=== PATIENT | male | born 1945 | race Caucasian/White ===

== ENCOUNTER 2023-07-22 14:52 | Outpatient (REF) | payer MEDICARE, BC, SELFPAY ==
--- NOTE | ~2023-07-22 | XR_ITS ---
EXAMINATION: XR CHEST CLINICAL INFORMATION: COPD COMPARISON: None available. TECHNIQUE: 2 views of the chest were obtained. FINDINGS: The cardiac silhouette does not appear enlarged. There is volume loss to both upper lobes and superior retraction of the pulmonary rashawn. There is biapical pleural parenchymal disease with marked apical pleural thickening. There is blunting at the bilateral lateral costophrenic angles and pleural calcification. There is question of a bronchial wall thickening or small cluster nodules in the right lateral lower lobe. No pneumothorax. Bony structures are unremarkable. XR/XR chest 2V IMPRESSION: Severe by apical pleural and parenchymal disease and volume loss. Bilateral pleural calcification. Question clustered small nodules versus bronchial wall thickening at the right lateral lung base.
== END 2023-07-22 14:53 | disposition home or self-care (01) ==
LOC: HO.XRAY 14:52
PROVIDERS: PCP Family Medicine; Referring Provider Family Medicine; Visit Provider Hospitalist
DX: J44.9 Chronic obstructive pulmonary disease, unspecified (principal)
CPT/HCPCS: 71046; 94618; 99202

== ENCOUNTER 2023-07-22 14:52 | Outpatient (AMB) | payer MEDICARE, BC, SELFPAY ==
--- NOTE | 2023-07-22 15:00 | A.OFFVIS_ITS ---
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 The patient is a 77-year-old gentleman with a known history of emphysema in addition to pulmonary nodules. His cares mainly at [place]. The patient has been complaining of progressive dyspnea. He is gotten to the point that even minimal activity such as getting dressed results in significant shortness of breath. the patient denies any chest pains or palpitations. The shortness of breath does get better when he rests. Although he has been able to do much exercise because of that issue. The patient did not have a lot of medical records sent over. We only have a face sheet with his diagnosis. However, he has not aware of having any recent pulmonary function studies or chest x-rays or CT scans. He denies any recent exposure to any fumes or toxins. He does have a dog and denies any mold exposure. The patient is a former smoker. during the office visit we did go for 6 minute walk test. The patient did desaturate down to 86% with activity. He was visibly winded with dyspnea score 8/10. Denied any chest pains or palpitations. The patient is placed on a portable conserving device with 3 L pulse. We were able to ambulate he was able to maintain a pulse ox of 92%. Explained to the patient that he needs to start oxygen. I do believe that a portable oxygen concentrator with conserving valve would be most effective in order for him to have good portability outside of the home. He will need to have a chest x-ray done in addition to pulmonary function studies. He will benefit from pulmonary rehabilitation in the near future. Based on those results will consider getting some blood work including a blood gas to assess for any hypercarbia. For now we are going to maximize him on Trelegy. The patient does have some wheezing on examination I do believe a short course of prednisone would also be helpful. The patient already has a nebulizer to make sure that he has enough ampules for his nebulizer available. Once the patient has PFTs and chest x-ray he will return for follow-up in the next 6-8 weeks. [facility] Medical History (Updated 07/22/23 @ 22:33 by Enrico Bennett MD) Pulmonary nodules Chronic hypoxemic respiratory failure COPD (chronic obstructive pulmonary disease) Social History (Updated 07/22/23 @ 15:08 by Jasmin Mccoy LPN) Patient Tobacco Use Status: Former Tobacco user Tobacco use type: Cigarette Cigarette Packs Per Day: 1 Years Smoked: 60 Review of Systems Const Denies fever(s) ENT Reports nasal congestion Card Denies chest pain, Reports dyspnea and Reports dyspnea on exertion Resp Reports chest congestion, Reports cough, Reports dyspnea and Reports dyspnea on exertion GI Reports abdominal pain Musc Reports no additional complaints Skin/Breast Denies rash Dyllan/Lymph Reports no additional complaints Physical Exam Vital Signs: Last Vital Signs Pulse 67 07/22/23 15:02 BP 136/78 07/22/23 15:02 Pulse Ox 95 07/22/23 15:02 BMI result Body Mass Index 24.2 Const General: comfortable HEENT Head: Yes atraumatic Neck Neck: Yes supple Chest Chest palpation & inspection: normal inspection of the chest Resp Effort & Inspection: normal respiratory effort and prolonged expiratory phase Auscultation: wheezes and diminished lung sounds Cardio Heart sounds: S1 normal heart sound present and S2 normal heart sound present GI Palpation (GI): Soft to palpation Skin General skin exam: no rashes or lesions noted Extrem General: No cyanosis Office Procedures 6 Minute Walk Time:: 22:33 SPO2 % at rest: 93 Pulse at rest: 78 SPO2 % during excercise: 86 Pulse during excercise: 99 Distance in yards walked: 300 Slava Score: 8 Supplemental Oxygen: desaturated to86% on RA with activity. PLaced on 3L/pulse and maintained pox 92 % with activity. [address]992 - 6 Minute Walk Assessment & Plan Assessment & Plan (1) COPD (chronic obstructive pulmonary disease): Code(s): J44.9 - Chronic obstructive pulmonary disease, unspecified Qualifiers: COPD type: emphysema Emphysema type: centrilobular Qualified Code(s): J43.2 - Centrilobular emphysema (2) Chronic hypoxemic respiratory failure: Code(s): J96.11 - Chronic respiratory failure with hypoxia (3) Pulmonary nodules: Code(s): R91.8 - Other nonspecific abnormal finding of lung field Plan start Trelegy 200 daily prednisone taper start Duoneb BID start oxygen 2L/pulse with activity. (requesting POC from JEANNA) overnight oximetry on RA (JEANNA) CXR, may need a CT chest if abnormal PFT F/U 6-8 weeks Orders: Orders PFT pulmonary function test Today Overnight Pulse Oximetry Today J44.9 - Chronic obstructive pulmonary disease, unspecified XR chest 2V Today J44.9 - Chronic obstructive pulmonary disease, unspecified Medications: New prednisone 20 mg PO DAILY 5 days 5 tabs 0RF nszlelkauwq-zgqwtcubu-aqtygvuv 200-62.5-25 mcg (Trelegy Ellipta) 1 inh inhalation DAILY 30 days 60 ea 12RF ipratropium-albuterol 0.5 mg-3 mg(2.5 mg base)/3 mL 3 mL inhalation BID 30 days 180 mL 11RF J44.9 - Chronic obstructive pulmonary disease, unspecified Coding Level of Care Code New Pt Level 4 (11624) Diagnoses Centrilobular emphysema J43.2 COPD type: emphysema Emphysema type: centrilobular Chronic hypoxemic respiratory failure J96.11 Pulmonary nodules R91.8 CPT Codes Coding ([id number]) Time Spent (min) 40
[2023-07-22 15:02] VITALS: BP 136/78; PULSE 67; O2SAT 95; BMI 24.2
[2023-07-22 22:32] VITALS: PULSE 78; O2SAT 93
== END 2023-07-22 15:46 | disposition home or self-care (01) ==
PROVIDERS: PCP Family Medicine; Referring Provider Family Medicine; Visit Provider Hospitalist
DX: J43.2 Centrilobular emphysema (principal); J96.11 Chronic respiratory failure with hypoxia; R91.8 Other nonspecific abnormal finding of lung field
CPT/HCPCS: 94618; 99204

== ENCOUNTER 2023-08-22 15:15 | Outpatient (REF) | payer MEDICARE, SELFPAY ==
--- NOTE | ~2023-08-22 | CT_ITS ---
EXAMINATION: CT CHEST WITHOUT CONTRAST CLINICAL INFORMATION: Follow-up chest radiograph with the findings scarring and volume loss as well as questionable small nodules COMPARISON: Chest radiograph from 07/22/2023 TECHNIQUE: Multidetector volumetric CT imaging of the chest was done. Axial MIP volume rendering provided. Sagittal and coronal reformatted images were obtained. This CT examination was performed using dose optimization techniques as appropriate, variously including the following: *Automated exposure control *Adjustment of mA and/or kV according to patient size (this includes techniques or standardized protocols for targeted exams where dose is matched to indication/reason for exam; i.e. extremities or head) *Use of iterative reconstruction technique DLP: 166 mGy-cm FINDINGS: LUNGS: Lungs are well expanded with severe scarring in the upper lobes and retraction of lower lobes cephalad. There is cystic spaces and cystic bronchiectasis in upper lobes bilaterally. There is destruction of dilated bronchi cephalad. There are no lung nodules. Bronchovascular of lower lobes are relatively unremarkable. MEDIASTINUM: There is no mediastinal or hilar lymphadenopathy. Aorta is not dilated. There is no pericardial effusion. CORONARY ARTERY CALCIFICATION: Heavily calcified PLEURA: There is no pleural effusion but extensive pleural-based bilateral calcifications present. AXILLA: No lymphadenopathy. UPPER ABDOMEN: Unremarkable. OSSEOUS STRUCTURES: Unremarkable. 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 Pleural-based calcifications based on asbestos exposure. Fleischner guidelines were followed.
== END 2023-08-22 15:16 | disposition home or self-care (01) ==
LOC: HO.CT 15:15
PROVIDERS: Visit Provider Hospitalist
DX: R91.8 Other nonspecific abnormal finding of lung field (principal); J96.11 Chronic respiratory failure with hypoxia; R93.89 Abnormal findings on diagnostic imaging of other specified body structures
CPT/HCPCS: 71250

== ENCOUNTER 2023-09-04 10:14 | Outpatient (AMB) | payer MEDICARE, SELFPAY ==
--- NOTE | 2023-09-04 10:39 | MHC.OFFVIS ---
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 His cares mainly at [place]. The patient has been complaining of progressive dyspnea. He is gotten to the point that even minimal activity such as getting dressed results in significant shortness of breath. the patient denies any chest pains or palpitations. The shortness of breath does get better when he rests. Although he has been able to do much exercise because of that issue. The patient did not have a lot of medical records sent over. We only have a face sheet with his diagnosis. However, he has not aware of having any recent pulmonary function studies or chest x-rays or CT scans. He denies any recent exposure to any fumes or toxins. He does have a dog and denies any mold exposure. The patient is a former smoker. during the office visit we did go for 6 minute walk test. The patient did desaturate down to 86% with activity. He was visibly winded with dyspnea score 8/10. Denied any chest pains or palpitations. The patient is placed on a portable conserving device with 3 L pulse. We were able to ambulate he was able to maintain a pulse ox of 92%. Explained to the patient that he needs to start oxygen. I do believe that a portable oxygen concentrator with conserving valve would be most effective in order for him to have good portability outside of the home. He will need to have a chest x-ray done in addition to pulmonary function studies. He will benefit from pulmonary rehabilitation in the near future. Based on those results will consider getting some blood work including a blood gas to assess for any hypercarbia. For now we are going to maximize him on Trelegy. The patient does have some wheezing on examination I do believe a short course of prednisone would also be helpful. The patient already has a nebulizer to make sure that he has enough ampules for his nebulizer available. Once the patient has PFTs and chest x-ray he will return for follow-up in the next 6-8 weeks. 09/04/2023 the patient is here for a pulmonary follow-up visit. Overall he is feeling better. The oxygen therapy has been affecting beneficial. He finds it very helpful to have. In addition to that the Trelegy inhaler was too expensive and he could not afford it so therefore he did not feel it. He did get his nebulizer and does have his nebulized solution. Based on the fact that he will be using Trelegy will add budesonide to his regimen specially since he still has significant wheezing on examination. He did undergo a CT scan of the chest which was personally by me. Does have extensive fibrotic changes to the upper lung zones. Likely occupational exposures. 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 This likely resulting in some degree of restrictive lung disease in addition to the obstructive lung disease resulting in a significant hypoxia. But is reassuring no significant nodules to wear about at this time. The patient will start the DuoNeb and the budesonide twice a day if he has not better he can always start some prednisone but I am hoping that he does not require it. He should continue to use the oxygen. 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 [facility] Medical History (Updated 07/22/23 @ 22:33 by Enrico Bennett MD) Pulmonary nodules Chronic hypoxemic respiratory failure COPD (chronic obstructive pulmonary disease) Social History (Updated 07/22/23 @ 15:08 by Jasmin Mccoy LPN) Patient Tobacco Use Status: Former Tobacco user Tobacco use type: Cigarette Cigarette Packs Per Day: 1 Years Smoked: 60 Review of Systems Const Denies fever(s) ENT Reports nasal congestion Card Denies chest pain, Reports dyspnea and Reports dyspnea on exertion Resp Reports chest congestion, Reports cough, Reports dyspnea and Reports dyspnea on exertion GI Denies abdominal pain Musc Reports no additional complaints Skin/Breast Denies rash Dyllan/Lymph Reports no additional complaints Physical Exam Vital Signs: Last Vital Signs Pulse 92 09/04/23 10:40 Pulse Ox 93 09/04/23 10:40 Oxygen Delivery Method Room Air 09/04/23 10:40 BMI result Body Mass Index 22.5 Const General: comfortable HEENT Head: Yes atraumatic Neck Neck: Yes supple Chest Chest palpation & inspection: normal inspection of the chest Resp Effort & Inspection: normal respiratory effort and prolonged expiratory phase Auscultation: wheezes and diminished lung sounds Cardio Heart sounds: S1 normal heart sound present and S2 normal heart sound present GI Palpation (GI): Soft to palpation Skin General skin exam: no rashes or lesions noted Extrem General: No cyanosis Assessment & Plan Assessment & Plan (1) Pulmonary nodules: Code(s): R91.8 - Other nonspecific abnormal finding of lung field Category: Medical (2) COPD (chronic obstructive pulmonary disease): Code(s): J44.9 - Chronic obstructive pulmonary disease, unspecified Category: Medical Qualifiers: COPD type: emphysema Emphysema type: centrilobular Qualified Code(s): J43.2 - Centrilobular emphysema (3) Chronic hypoxemic respiratory failure: Code(s): J96.11 - Chronic respiratory failure with hypoxia Category: Medical Plan stopped Trelegy 200 daily (too expensive) prednisone taper continue Duoneb BID start BUdesonide BID continue oxygen 2L/pulse with activity. (requesting POC from JEANNA) overnight oximetry on RA (JEANNA) PFT F/U 6 months Medications: New budesonide 0.5 mg (2 mL) inhalation BID 120 mL 11RF 30 days J44.9 - Chronic obstructive pulmonary disease, unspecified prednisone PO daily; Take 2 tabs daily x 5 days, then 1 tablet daily x 5 days 15 tabs 0RF 10 days Discontinued erbnpxgwixk-botwaxwlm-osvesefj 200-62.5-25 mcg (Trelegy Ellipta) Discontinued Reason: Doctor's Order 1 inh inhalation DAILY 30 days 60 ea 12RF Coding Level of Care Code Est Pt Level 4 (28380) Diagnoses Pulmonary nodules R91.8 Centrilobular emphysema J43.2 COPD type: emphysema Emphysema type: centrilobular Chronic hypoxemic respiratory failure J96.11 Time Spent (min) 17
[2023-09-04 10:40] VITALS: PULSE 92; O2SAT 93; BMI 22.5
== END 2023-09-04 11:07 | disposition home or self-care (01) ==
PROVIDERS: PCP Family Medicine; Visit Provider Hospitalist
DX: R91.8 Other nonspecific abnormal finding of lung field (principal); J43.2 Centrilobular emphysema; J96.11 Chronic respiratory failure with hypoxia
CPT/HCPCS: 99214

== ENCOUNTER → 2023-09-04 10:14 | Outpatient (BNVA) | payer MEDICARE, SELFPAY | PROVIDERS: PCP Family Medicine; Visit Provider Hospitalist | DX: J43.2 Centrilobular emphysema (principal); J96.11 Chronic respiratory failure with hypoxia; R91.8 Other nonspecific abnormal finding of lung field; Z79.899 Other long term (current) drug therapy | CPT/HCPCS: 99212 ==

== ENCOUNTER 2024-03-08 13:05 | Outpatient (AMB) | payer MEDICARE, SELFPAY ==
--- NOTE | 2024-03-08 13:14 | A.OFFVIS_ITS ---
Vital Signs 03/08/24 13:16 Height 5 ft 10 in Weight 135 lb BMI 19.4 BP 110/60 Blood Pressure Location Lt brachial Position Sitting Pulse 58 Pulse Source Pulse Oximeter Pulse Oximetry (%) 97 Oxygen Delivery Method Room Air Comment 2 Liters Oxygen Intake Visit Reasons: Pulm Nodule Title Attorney Required: No Allergies Seasonal Allergies Allergy (Intermediate, Verified 03/08/24 13:14) sneezing, watery eyes HPI Comments Details: The patient is a 78-year-old gentleman with a known history of emphysema in addition to pulmonary nodules. His cares mainly at [place]. The patient has been complaining of progressive dyspnea. He is gotten to the point that even minimal activity such as getting dressed results in significant shortness of breath. the patient denies any chest pains or palpitations. The shortness of breath does get better when he rests. Although he has been able to do much exercise because of that issue. The patient did not have a lot of medical records sent over. We only have a face sheet with his diagnosis. However, he has not aware of having any recent pulmonary function studies or chest x-rays or CT scans. He denies any recent exposure to any fumes or toxins. He does have a dog and denies any mold exposure. The patient is a former smoker. during the office visit we did go for 6 minute walk test. The patient did desaturate down to 86% with activity. He was visibly winded with dyspnea score 8/10. Denied any chest pains or palpitations. The patient is placed on a portable conserving device with 3 L pulse. We were able to ambulate he was able to maintain a pulse ox of 92%. Explained to the patient that he needs to start oxygen. I do believe that a portable oxygen concentrator with conserving valve would be most effective in order for him to have good portability outside of the home. He will need to have a chest x-ray done in addition to pulmonary function studies. He will benefit from pulmonary rehabilitation in the near future. Based on those results will consider getting some blood work including a blood gas to assess for any hypercarbia. For now we are going to maximize him on Trelegy. The patient does have some wheezing on examination I do believe a short course of prednisone would also be helpful. The patient already has a nebulizer to make sure that he has enough ampules for his nebulizer available. Once the patient has PFTs and chest x-ray he will return for follow-up in the next 6-8 weeks. 09/04/2023 the patient is here for a pulmonary follow-up visit. Overall he is feeling better. The oxygen therapy has been affecting beneficial. He finds it very helpful to have. In addition to that the Trelegy inhaler was too expensive and he could not afford it so therefore he did not feel it. He did get his nebulizer and does have his nebulized solution. Based on the fact that he will be using Trelegy will add budesonide to his regimen specially since he still has significant wheezing on examination. He did undergo a CT scan of the chest which was personally by me. Does have extensive fibrotic changes to the upper lung zones. Likely occupational exposures. 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 This likely resulting in some degree of restrictive lung disease in addition to the obstructive lung disease resulting in a significant hypoxia. But is reassuring no significant nodules to wear about at this time. The patient will start the DuoNeb and the budesonide twice a day if he has not better he can always start some prednisone but I am hoping that he does not require it. He should continue to use the oxygen. 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 03/08/2024 the patient is here for pulmonary follow-up visit. Recently moved then with his ex-. The patient was having significant amount of stress. He has significant amount of weight loss. Overall he is starting to feel better now. He is starting to gain some weight. The patient did lose significant amount of weight. His appetite is good tell. 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 No concerning areas for cancer. Will have him get an x-ray at this point to make sure that he does not have an occult process going on specially with his history of asbestos and smoking. The patient will continue to use his respiratory therapy as prescribed. He is also using the oxygen with good effect. Will follow-up in 6 months at which time will have to repeat his CT scan to follow-up with the yearly CT scan. [facility] Medical History (Updated 07/22/23 @ 22:33 by Enrico Bennett MD) Pulmonary nodules Chronic hypoxemic respiratory failure COPD (chronic obstructive pulmonary disease) Social History (Updated 07/22/23 @ 15:08 by Jasmin Mccoy LPN) Patient Tobacco Use Status: Former Tobacco user Tobacco use type: Cigarette Cigarette Packs Per Day: 1 Years Smoked: 60 Review of Systems Const Denies fever(s) and Reports weight loss ENT Reports nasal congestion Card Denies chest pain, Reports dyspnea and Reports dyspnea on exertion Resp Reports cough, Reports dyspnea and Reports dyspnea on exertion GI Denies abdominal pain Musc Reports no additional complaints Skin/Breast Denies rash Dyllan/Lymph Reports no additional complaints Physical Exam Vital Signs: Last Vital Signs Pulse 58 03/08/24 13:16 BP 110/60 03/08/24 13:16 Pulse Ox 97 03/08/24 13:16 Oxygen Delivery Method Room Air 03/08/24 13:16 BMI result Body Mass Index 19.4 Const General: comfortable HEENT Head: Yes atraumatic Neck Neck: Yes supple Chest Chest palpation & inspection: normal inspection of the chest Resp Effort & Inspection: normal respiratory effort Auscultation: no wheezes and diminished lung sounds Cardio Heart sounds: S1 normal heart sound present and S2 normal heart sound present GI Palpation (GI): Soft to palpation Skin General skin exam: no rashes or lesions noted Extrem General: No cyanosis Assessment & Plan Assessment & Plan (1) Pulmonary nodules: Code(s): R91.8 - Other nonspecific abnormal finding of lung field Category: Medical (2) COPD (chronic obstructive pulmonary disease): Code(s): J44.9 - Chronic obstructive pulmonary disease, unspecified Category: Medical Qualifiers: COPD type: emphysema Emphysema type: centrilobular Qualified Code(s): J43.2 - Centrilobular emphysema (3) Chronic hypoxemic respiratory failure: Code(s): J96.11 - Chronic respiratory failure with hypoxia Category: Medical Plan stopped Trelegy 200 daily (too expensive) prednisone taper continue Duoneb BID continue BUdesonide BID continue oxygen 2L/pulse with activity. (requesting POC from [facility]) CXR F/U 6 months Orders: Orders XR chest 2V Today R91.8 - Other nonspecific abnormal finding of lung field Coding Level of Care Code Est Pt Level 4 (55051) Diagnoses Pulmonary nodules R91.8 Centrilobular emphysema J43.2 COPD type: emphysema Emphysema type: centrilobular Chronic hypoxemic respiratory failure J96.11 Time Spent (min) 16
[2024-03-08 13:16] VITALS: BP 110/60; PULSE 58; O2SAT 97; BMI 19.4
== END 2024-03-08 13:50 | disposition home or self-care (01) ==
PROVIDERS: PCP Family Medicine; Visit Provider Hospitalist
DX: R91.8 Other nonspecific abnormal finding of lung field (principal); J43.2 Centrilobular emphysema; J96.11 Chronic respiratory failure with hypoxia
CPT/HCPCS: 99214

== ENCOUNTER → 2024-03-08 13:05 | Outpatient (BNVA) | payer MEDICARE, SELFPAY | PROVIDERS: PCP Family Medicine; Visit Provider Hospitalist | DX: J43.2 Centrilobular emphysema (principal); J96.11 Chronic respiratory failure with hypoxia; R91.8 Other nonspecific abnormal finding of lung field | CPT/HCPCS: 99212 ==

== ENCOUNTER 2024-09-06 14:16 | Outpatient (REF) | payer MEDICARE, SELFPAY ==
[2024-09-06 15:25] LABS: MANUAL DIFF FLAG NO
[2024-09-06 15:29] LABS: Venous Blood Gas Refer to POC result
[2024-09-06 15:30] LABS: VBG Base Excess 14.2 mmol/L; VBG HCO3 43 mmol/L (22-26); VBG O2 % Saturation < 30.0 %; VBG pCO2 75 mmHg; VBG pH 7.36 (7.32-7.43); VBG pO2 24 mmHg
[2024-09-06 15:53] LABS: Basophils Percent Auto 0.5 % (0-2); Eosinophils Absolute Auto 0.1 X10*3/uL (0.0-0.4); Eosinophils Percent Auto 1.4 % (0-4); Hematocrit 44.3 % (42.0-52.0); Hemoglobin 14.2 g/dl (14.0-18.0); Imm Gran Abs Auto 0.03 X10*3/uL (0.00-0.03); Imm Gran Pct Auto 0.4 % (0.0-0.4); Lymphocytes Absolute Auto 1.7 X10*3/uL (1.2-4.9); Lymphocytes Percent Auto 21.8 % (20-40); Mean Corpuscular HGB Conc 32.1 g/dl (31.0-36.0); Mean Corpuscular Hemoglobin 30.9 pg (27.0-33.0); Mean Corpuscular Volume 96.3 fL (80.0-98.0); Mean Platelet Volume 9.2 fL (9.4-12.4); Monocytes Absolute Auto 0.7 X10*3/uL (0.1-1.2); Monocytes Percent Auto 9.1 % (2-11); Neutrophils Absolute Auto 5.3 x10*3/uL (2.0-8.3); Neutrophils Percent Auto 66.8 % (45-73); Platelet Count 259 X10*3/uL (160-400); Red Cell Distribution Width 14.2 % (11.0-16.0); White Blood Count 7.9 X10*3/uL (4.8-10.8)
[2024-09-06 16:16] LABS: Anion Gap 14 (12-20); Blood Urea Nitrogen 31 mg/dL (9-16); Calcium 8.8 mg/dL (8.4-10.2); Carbon Dioxide 34 mmol/L (22-29); Chloride 95 mmol/L (96-108); Estimated Glomerular Filt Rate > 60; Glucose Random 104 mg/dL (60-115); Potassium 4.5 mmol/L (3.3-5.1); Sodium 138 mmol/L (135-145)
[2024-09-06 16:26] LABS: Troponin-I High Sensitivity < 2.7 ng/L (<3.5-35.0)
[2024-09-06 17:05] LABS: Erythrocyte Sedimentation Rate 18 MM/HR (0-15)
--- OUTSIDE RECORDS SUMMARY | 2024-09-06 17:55 | XMS_ITS | Encounter Summary ---
Author Organization [facility] [place] [address] Care Team Providers Care Patient Service Representative Name Role Phone Link Garcia MD Primary Care Provider Encounter Details Date Type Department Care Team (Late st Contact Info) Description 02/27/2024 9:09 AM EDT Hospital Encounter TH HISTORIC ENCOUNTERS [facility] Link Garcia MD [address] [place] [address] Social History Tobacco Use Types Packs/Day Years [...] 10:24 AM Encounter Date: 02/27/2024 Status: Signed Chief Underwriter: Link Garcia MD (Physician) [facility] Subjective Patient ID: Austin Huber is a [...] Description 10/26/2024 10:00 AM EDT Ancillary Procedure [facility] - [address] [place] [address] 03/04/2025 9:10 AM EDT Office Visit [facility] - [address] [place] [address] Chantal Bobby NP [address] [place] [address] documented as of this encounter Visit Diagnoses Not on filedocumented in this encounter Care Teams Patient Service Representative Relationship Specialty Start Date End Date Link Garcia MD PCP - General 02/07/23 08/22/24 documented as of this encounter
--- OUTSIDE RECORDS SUMMARY | 2024-09-06 17:55 | XMS_ITS | Clinical Summary ---
Author Organization [facility] Address [address] [place] [address] Care Team Providers Care Sap Solution Manager Consultant Name Role Phone Link Garcia MD Primary Care Provider [phone] Allergies No known active allergies Medications Medication [...] mouth 2 (two) times a day. Chocolate 71432 mL 3 04/05/2024 Active Active Problems Problem Noted Date Diagnosed Date Moderate protein-calorie malnutrition 02/29/2024 Family history of polyps in the colon 05/22/2023 Essential hypertension 06/15/2020 3 Overview: Last Assessment & Plan: [id number]/80 in office today, elevated. She remains elevated [...] age to complete this topic Care Teams Sap Solution Manager Consultant Relationship Specialty Start Date End Date Link Garcia MD PCP - General Family Medicine 02/07/23 [facility] [place] [facility] Dermatology 02/07/23 [facility] Consulting Physician Ophthalmology 02/07/23 Dr. Arzate [facility] Cardiology 08/25/23
--- OUTSIDE RECORDS SUMMARY | 2024-09-06 17:55 | XMS_ITS | Clinical Summary ---
Author Organization [facility] [address] Address [address] [place] [address] Phone Care Team Providers Care Test Driller Name Role Phone Link Garcia MD Primary Care Provider [phone] Allergies No known active allergies Medications aspirin [...] I will forward to his PCP and customer service voice for treatment. If this is benign he will undergo an exercise nuclear stress test on medications in our office at 1st available. He will continue his current medications. Any chest pain or chest discomfort lasting 15 minutes or longer he should seek urgent medical attention. Essential hypertension 06/15/2020 Overview (04/26/2024): Last Assessment & Plan: [id number]/80 in office today, elevated. She remains elevated [...] due to asbestos exposure 02/12/20 17 Pneumoconiosis ([facility] V24, [facility]28) 2016 Chronic obstructive pulmonar y disease ([facility] V24, [facility] V28) 02/07/2017 Encounters Date Type Department Care Team Description 08/10/2024 8:50 AM EDT Office Visit [facility] - [address] [place] [address] Danie Arzate MD Coronary artery disease due to calcified coronary lesion (Primary Dx); MCPHERSON (dyspnea on exertion) from Last 3 Months Surgical History Surgery Date Site/Laterality Comments EYE SURGERY PROCEDURE:EYE SURGERY CARDIAC CATHETERIZATION PROCEDURE:CARDIAC CATHETERIZATION Medical History Medical History Date Comments Cancer ([facility], [facility] V[facility]) July 30 2022 DX:Cancer ([facility]);COMMENT:Removed on nose COPD (chronic obstructive pu lmonary disease) ([facility], [facility] V28) DX:COPD (chronic o bstructive pulmonary disease) ([facility]) Emphysema of lung ([facility], [facility]) DX:Emphysema of lung ([facility]) Hypertension DX:Hypertension Myocardial infarction ([facility] V24, [facility] V28) DX:Myocardial infarction (HC C) Pneumonia DX:Pneumonia [...] Description 10/26/2024 10:00 AM EDT Ancillary Procedure [facility] - [address] [place] [address] 03/04/2025 9:10 AM EDT Office Visit [facility] - [address] [place] [phone] Chantal Bobby, HYUN [address] [place] [address] Health Maintenance Due Date Last [...] Results * Annual BMP Blood Test (02/27/2024) [facility] Annual BMP Blood Test Abstracted us Historical Provider HEALTH MAINTENANCE Final Result * Hepatitis C Screening (06/10/2023) [facility] Hepatitis C Screening Abstracted Historical Provider HEALTH MAINTENANCE Final Result * Lipid panel (06/10/2023) [facility] LDL/HDL Ratio 0 Comment:No interpretation Triglycerides 0 mg/dL Comment:No interpretation Cholesterol 0 mg/dL Comment:No interpretation HDL 0 mg/dL Comment:No interpretation LDL Cholesterol 0 mg/dL Comment:No interpretation Blood Venous blood specimen / Unknown Historical Provider LAB BLOOD ORDERABLES Lilia l Result from Last 3 Months or Most Recently Relevant to Health Maintenance Insurance [facility] Care Teams Test Driller Relationship Specialty Start Date End Date Link Garcia MD [address] [place] [address] PCP - General Family Medicine 08/23/24
== END 2024-09-06 14:17 | disposition home or self-care (01) ==
LOC: HO.LAB 14:16
PROVIDERS: PCP Family Medicine; Visit Provider Hospitalist
DX: J43.2 Centrilobular emphysema (principal); R91.8 Other nonspecific abnormal finding of lung field; J96.11 Chronic respiratory failure with hypoxia
CPT/HCPCS: 36415; 80048; 82803; 84484; 85025; 85652; 99212

== ENCOUNTER 2024-09-06 14:16 | Outpatient (AMB) | payer MEDICARE, SELFPAY ==
[2024-09-06 14:20] VITALS: BP 86/52; PULSE 59; O2SAT 93; BMI 20.4
--- NOTE | 2024-09-06 14:20 | MHC.OFFVIS ---
Vital Signs 09/06/24 14:20 Height 5 ft 10 in Weight 142 lb 3.17 oz BMI 20.4 BP 86/52 L Blood Pressure Location Lt brachial Position Sitting Pulse 59 Pulse Source Pulse Oximeter Pulse Oximetry (%) 93 Oxygen Delivery Method Nasal Cannula Oxygen Flow Rate 2 Intake Visit Reasons: Pulm Nodule Allergies Seasonal Allergies Allergy (Intermediate, Verified 09/06/24 14:24) sneezing, watery eyes HPI Comments Details: The patient is a 78-year-old gentleman with a known history of emphysema in addition to pulmonary nodules. His cares mainly at [place]. The patient has been complaining of progressive dyspnea. He is gotten to the point that even minimal activity such as getting dressed results in significant shortness of breath. the patient denies any chest pains or palpitations. The shortness of breath does get better when he rests. Although he has been able to do much exercise because of that issue. The patient did not have a lot of medical records sent over. We only have a face sheet with his diagnosis. However, he has not aware of having any recent pulmonary function studies or chest x-rays or CT scans. He denies any recent exposure to any fumes or toxins. He does have a dog and denies any mold exposure. The patient is a former smoker. during the office visit we did go for 6 minute walk test. The patient did desaturate down to 86% with activity. He was visibly winded with dyspnea score 8/10. Denied any chest pains or palpitations. The patient is placed on a portable conserving device with 3 L pulse. We were able to ambulate he was able to maintain a pulse ox of 92%. Explained to the patient that he needs to start oxygen. I do believe that a portable oxygen concentrator with conserving valve would be most effective in order for him to have good portability outside of the home. He will need to have a chest x-ray done in addition to pulmonary function studies. He will benefit from pulmonary rehabilitation in the near future. Based on those results will consider getting some blood work including a blood gas to assess for any hypercarbia. For now we are going to maximize him on Trelegy. The patient does have some wheezing on examination I do believe a short course of prednisone would also be helpful. The patient already has a nebulizer to make sure that he has enough ampules for his nebulizer available. Once the patient has PFTs and chest x-ray he will return for follow-up in the next 6-8 weeks. 09/04/2023 the patient is here for a pulmonary follow-up visit. Overall he is feeling better. The oxygen therapy has been affecting beneficial. He finds it very helpful to have. In addition to that the Trelegy inhaler was too expensive and he could not afford it so therefore he did not feel it. He did get his nebulizer and does have his nebulized solution. Based on the fact that he will be using Trelegy will add budesonide to his regimen specially since he still has significant wheezing on examination. He did undergo a CT scan of the chest which was personally by me. Does have extensive fibrotic changes to the upper lung zones. Likely occupational exposures. 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 This likely resulting in some degree of restrictive lung disease in addition to the obstructive lung disease resulting in a significant hypoxia. But is reassuring no significant nodules to wear about at this time. The patient will start the DuoNeb and the budesonide twice a day if he has not better he can always start some prednisone but I am hoping that he does not require it. He should continue to use the oxygen. 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 03/08/2024 the patient is here for pulmonary follow-up visit. Recently moved then with his ex-. The patient was having significant amount of stress. He has significant amount of weight loss. Overall he is starting to feel better now. He is starting to gain some weight. The patient did lose significant amount of weight. His appetite is good tell. 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 No concerning areas for cancer. Will have him get an x-ray at this point to make sure that he does not have an occult process going on specially with his history of asbestos and smoking. The patient will continue to use his respiratory therapy as prescribed. He is also using the oxygen with good effect. Will follow-up in 6 months at which time will have to repeat his CT scan to follow-up with the yearly CT scan. 09/06/2024 the patient is here for pulmonary follow-up visit. He is here with his ex-. He continues to have dyspnea on exertion moderate severity. He started using the oxygen more regularly. We did taken for walking oximetry and he needs to continue the oxygen at 2 L pulse with the rest and also 3-4 L pulse with activity. The patient has had significant amount of weight loss. He is going to have a colonoscopy soon. In the meantime he has not had a CAT scan in about a year and I do believe that CAT scan will be helpful to better address the significant weight loss specially with his history of asbestos. Also with worsening respiratory failure. He is willing to try an inhaler. I do believe Anoro will be a good option for him that he can use once a day. Will follow-up in 6-8 weeks to see his progress. In the meantime he is going to go for blood work. I am going to request a blood gas as I am concerned about his CO2 retention. If he does have significant hypercarbia he may be a candidate for noninvasive ventilator. Hypercarbic carries a very poor prognosis and high risk for rehospitalization. [facility] Medical History (Updated 07/22/23 @ 22:33 by Enrico Bennett MD) Pulmonary nodules Chronic hypoxemic respiratory failure COPD (chronic obstructive pulmonary disease) Social History (Updated 07/22/23 @ 15:08 by Jasmin Mccoy LPN) Patient Tobacco Use Status: Former Tobacco user Tobacco use type: Cigarette Cigarette Packs Per Day: 1 Years Smoked: 60 Review of Systems Const Denies fever(s) and Reports weight loss ENT Reports nasal congestion Card Denies chest pain, Reports dyspnea and Reports dyspnea on exertion Resp Reports cough, Reports dyspnea and Reports dyspnea on exertion GI Denies abdominal pain Musc Reports no additional complaints Skin/Breast Denies rash Dyllan/Lymph Reports no additional complaints Physical Exam Vital Signs: Last Vital Signs Pulse 59 09/06/24 14:20 BP 86/52 L 09/06/24 14:20 Pulse Ox 93 09/06/24 14:20 Oxygen Delivery Method Nasal Cannula 09/06/24 14:20 Oxygen Flow Rate 2 09/06/24 14:20 BMI result Body Mass Index 20.4 Const General: comfortable HEENT Head: Yes atraumatic Neck Neck: Yes supple Chest Chest palpation & inspection: normal inspection of the chest Resp Effort & Inspection: normal respiratory effort and prolonged expiratory phase Auscultation: no wheezes and diminished lung sounds Cardio Heart sounds: S1 normal heart sound present and S2 normal heart sound present GI Palpation (GI): Soft to palpation Skin General skin exam: no rashes or lesions noted Extrem General: No cyanosis Assessment & Plan Assessment & Plan (1) Pulmonary nodules: Code(s): R91.8 - Other nonspecific abnormal finding of lung field Category: Medical (2) COPD (chronic obstructive pulmonary disease): Code(s): J44.9 - Chronic obstructive pulmonary disease, unspecified Category: Medical Qualifiers: COPD type: emphysema Emphysema type: centrilobular Qualified Code(s): J43.2 - Centrilobular emphysema (3) Chronic hypoxemic respiratory failure: Code(s): J96.11 - Chronic respiratory failure with hypoxia Category: Medical Plan start Anoro daily continue Duoneb BID stop BUdesonide BID continue oxygen 2L/pulse at rest 3-4L/pulse with activity. (POC from [facility]) Bloodwork online pulmonary rehab F/U 4-6 months Orders: Orders Venous Blood Gas Today J43.2 - Centrilobular emphysema Complete Blood Count Auto Diff Today J43.2 - Centrilobular emphysema Basic Metabolic Panel Today J43.2 - Centrilobular emphysema Troponin-I High Sensitivity Today J43.2 - Centrilobular emphysema Erythrocyte Sedimentation Rate Today J43.2 - Centrilobular emphysema CT chest wo IV con Today R91.8 - Other nonspecific abnormal finding of lung field Coding Level of Care Code Est Pt Level 4 (57068) Complex EM visit Add On G2211 Diagnoses Pulmonary nodules R91.8 Centrilobular emphysema J43.2 COPD type: emphysema Emphysema type: centrilobular Chronic hypoxemic respiratory failure J96.11 Time Spent (min) 17
--- OUTSIDE RECORDS SUMMARY | 2024-09-06 17:04 | XMS_ITS ---
Author Name [facility] Organization Unknown History of Medication Use Medication Directions Dispensed Refills Start Date End Date Stat ipratropium 0.5 mg-albuterol 3 mg (2.5 mg base)/3 mL nebulization soln INHALE 3MLS TWICE DAILY 07/22/2023 02/29/20 24 completed isosorbide mononitrate ER 30 mg tablet,extended release 24 hr TAKE ONE TABLET BY MOUTH EVERY DAY 04/18/2023 08/25/19 24 completed nitroglycerin 0.[address] 1 TABLET UNDER THE TONGUE EVERY 5 MINUTES NEEDED FOR CHEST PAIN 04/14/2023 active acetaminophen 500 mg tablet Take 1 tablet by mouth every 6 (six) hours as needed. for pain 12/30/2022 04/11/20 23 completed budesonide 0.5 mg/2 mL suspension for nebulization INHALE THE CONTENTS OF ONE VIAL 2 MLS) TWO TIMES A DAY VIA NEBULIZER 06/10/19 25 completed lisinopril 10 mg tablet 06/10/19 25 completed prednisone 20 mg tablet TAKE TWO TABLETS BY MOUTH EVERY DAY FOR 5 DAYS THEN TAKE ONE TABLET BY MOUTH EVERY DAY FOR 5 DAYS 06/10/19 25 completed nitroglycerin 0.4 mg/hr transdermal [address] 1 patch onto the skin as needed (CP). 08/25/19 24 completed aspirin 81 mg chewable tablet active hydrochlorothiazide 25 mg tablet TAKE ONE TABLET BY MOUTH EVERY DAY active metoprolol succinate ER 200 mg tablet,extended release 24 hr TAKE ONE TABLET BY MOUTH EVERY DAY. DO NOT CRUSH OR CHEW active rosuvastatin 10 mg tablet TAKE ONE TABLET BY MOUTH EVERY DAY active aspirin (Aspirin Low Dose) 81 MG chewable tablet active metoprolol succinate (TOPROL-XL) 24 hr tablet 200 mg Take 1 tablet (200 mg total) by mouth daily. 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 ProblemAct [facility] Coronary arteriosclerosis active 2017-07-24 ProblemAct [facility] Hyperkalemia active EncounterDiagnosisAct [facility] Depression with anxiety active EncounterDiagnosisAct [facility] H Coronary artery disease active 2017-07-24 ProblemAct [facility] Multiple pulmonary nodules active 2017-02-11 ProblemAct [facility] 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 2017-02-11 ProblemAct [facility] Weight loss, unintentional active EncounterDiagnosisAct [facility] 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 ProblemAct [facility] Family history of polyps in the colon active 2023-05-22 ProblemAct [facility] Immunizations Vaccine Date Source Lot Number Status Seasonal trivalent influenza vaccine, adjuvanted, preservative free [id number] mpleted influenza, seasonal vaccine, quadrivalent, adjuvanted, 0.5 mL dose, preservative free 02/07/2023 [id number] 0 completed Encounters Encounter Type Encounter Reason Primary Diagnosis Location Date Ambulatory [facility] 07/06/2024 Ambulatory [facility] 06/10/2024 Ambulatory [facility] 06/10/2024 Emergency WEAKNESS Encounter for ge neral adult medical examination without abnormal findings [facility] 04/12/2024 Ambulatory [facility] 04/01/2024 Ambulatory Abnormal weight loss Abnormal weight loss [facility] 03/11/2024 Ambulatory Abnormal weight loss Abnormal weight loss [facility] 02/27/2024 Ambulatory Encounter for genera l adult medical examination without abnormal findings Encounter for general adult medical examination without abnormal findings [facility] 06/10/2023 Care Team Organization Name Specialty Phone Email Start Date End Da te [facility], 06/23/2024 [facility] 04/14/2024 [facility] 04/12/2024 [facility] 05/2023 [facility] 0 06/10/2023
--- OUTSIDE RECORDS SUMMARY | 2024-09-06 17:04 | XMS_ITS | Encounter Summary ---
Author Organization [facility] [place] [address] Care Team Providers Care Silver Miner Name Role Phone Link Garcia MD Primary Care Provider Encounter Details Date Type Department Care Team (Late st Contact Info) Description 02/27/2024 9:09 AM EDT Hospital Encounter TH HISTORIC ENCOUNTERS [facility] Link Garcia MD [address] [place] [address] Social History Tobacco Use Types Packs/Day Years Used Date Smoking Tobacco: Former Cigarettes Q uit: 11/09/2000 Smokeless Tobacco: Never Alcohol Use Standard Drinks/Week Comments Yes 0 (1 standard drink = 0.6 oz pur e alcohol) Sex and Gender Information Value Date Recorded Sex Assigned at Not on file Legal Sex Male 12:49 PM EST Gender Identity Not on file Sexual Orientation Not on file documented as of this encounter Last Filed [...] this encounter Progress Notes * Link Garcia MD - 02/27/2024 9:20 AM EDT Images from the original note were not included. Progress Notes by Link Garcia MD at 02/27/2024 9:20 AM Author: Link Garcia MD Service: -- Author Type: Physician Filed: 02/29/2024 10:24 AM Encounter Date: 02/27/2024 Status: Signed Coal Miner: Link Garcia MD (Physician) [facility] Subjective Patient ID: Austin Huber is a [...] documented in this encounter Plan of Treatment Upcoming Encounters Date Type Department Care Team (Late st Contact Info) Description 10/26/2024 10:00 AM EDT Ancillary Procedure [facility] [address] [place] [address] 03/04/2025 9:10 AM EDT Office Visit [facility] [address] [place] [address] Chantal Bobby NP [address] [place] [address] documented as of this encounter Visit Diagnoses Not on filedocumented in this encounter Care Teams Silver Miner Relationship Specialty Start Date End Date Link Garcia MD PCP - General 02/07/23 08/22/24 documented as of this encounter
--- OUTSIDE RECORDS SUMMARY | 2024-09-06 17:04 | XMS_ITS | Clinical Summary ---
Author Organization [facility] [address] Address [address] [place] [address] Phone Care Team Providers Care Corner Cutter Machine Operator Name Role Phone Link Garcia MD Primary Care Provider [phone] Allergies No known active allergies Medications aspirin (ASPIR-81 ORAL) Take by mouth. Active hydroCHLOROthia zide (HYDRODIURIL) 25 mg tablet Take 1 Tablet by mouth daily for 180 days. 03/09/2024 Active nitroglycerin (NITROSTAT) 0.[address] 1 Tablet under the tongue every 5 minutes as needed for Chest pain. 04/14/2023 Active metoprolol succinate (TOPROL-XL) 200 mg 24 hr tablet Take 1 tablet (200 mg total) by mouth 1 (one) time each day. Do not crush or chew. 90 each 2 05/14/2024 Active rosuvastatin (CRESTOR) 10 mg tablet Take 1 tablet (10 mg total) by mouth 1 (one) time each day. 90 each 2 05/14/2024 Active Active Problems Problem Noted Date Diagnosed Date Chest pain 06/21/2021 Overview (04/26/2024): Last Assessment & Plan: He has left anterior chest pain worse with coughing and deep breathing. He is diffusely wheezy in the right middle lobe and right lower lobe on exam. I am sending him for chest x-ray today to rule out pneumonia. He will also have a CBC performed. If this is suspicious for pneumonia I will forward to his PCP and mortgage assistant for treatment. If this is benign he will undergo an exercise nuclear stress test on medications in our office at 1st available. He will continue his current medications. Any chest pain or chest discomfort lasting 15 minutes or longer he should seek urgent medical attention. Essential hypertension 06/15/2020 Overview (04/26/2024): Last Assessment & Plan: [id number] in office today, elevated. She remains elevated at next office visit we will make adjustments to her regimen. Continue regimen as above. Last Assessment & Plan: 159/60 in office today, elevated, starting Imdur. Continue regimen as above. Coronary artery disease 07/24/2017 Overview (04/26/2024): Last Assessment & Plan: Status post CLAUDIA to the RCA 2016. Stable without ischemic symptoms. He has not had an echocardiogram to assess LV function in the last 6 years. We will update this. Blood pressure slightly on the higher side today. We will reassess this at next office visit. Continue aspirin, lisinopril, Toprol, and statin therapy. LDL at target. Low-salt diet and daily low impact exercise encouraged. Last Assessment & Plan: Status post CLAUDIA to the RCA 2016. Stable without ischemic symptoms. Echo shows preserved LV function and no valvular abnormalities. I am going to start Imdur 30 mg daily. He will start with 15 mg a day and increase this to 30 mg if tolerating well given his exertional symptoms. He did have a reassuring Lexiscan nuclear stress test that was normal without any areas of ischemia or infarction from June 2021 in the setting of similar symptoms. Blood pressure slightly on the higher side today. Hopefully adding Imdur improves this. We reviewed sublingual nitroglycerin dosing. He has never needed this as his symptoms resolve rather quickly. Otherwise continue aspirin, lisinopril, Toprol, and statin therapy. LDL at target. Low-salt diet and daily low impact exercise encouraged. Hyperlipidemia 07/24/2017 Overview (04/26/2024): Last Assessment & Plan: Last lipid panel from June 2021. Total cholesterol 121, HDL 23, LDL 64. Continue statin therapy. Last Assessment & Plan: Last lipid panel from March 2023. Total cholesterol 108, HDL 21, LDL 65. Continue statin therapy. We discussed daily low impact exercise and low-fat diet to improve his HDL. 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, [facility] V28) 2016 Chronic obstructive pulmonar y disease ([facility] V24, [facility] V28) 02/07/2017 Encounters Date Type Department Care Team Description 08/10/2024 8:50 AM EDT Office Visit [facility] - [address] [place] [address] Danie Arzate MD Coronary artery disease due to calcified coronary lesion (Primary Dx); MCPHERSON (dyspnea on exertion) from Last 3 Months Surgical History Surgery Date Site/Laterality Comments EYE SURGERY PROCEDURE:EYE SURGERY CARDIAC CATHETERIZATION PROCEDURE:CARDIAC CATHETERIZATION Medical History Medical History Date Comments Cancer ([facility] V24, [facility] V28) July 30 2022 DX:Cancer ([facility]);COMMENT:Removed on nose COPD (chronic obstructive pu lmonary disease) ([facility] V24, [facility] V28) DX:COPD (chronic o bstructive pulmonary disease) ([facility]) Emphysema of lung ([facility] V 24, [facility] V28) DX:Emphysema of lung ([facility]) Hypertension DX:Hypertension Myocardial infarction ([facility]/ [facility] V24, [facility] V28) DX:Myocardial infarction (HC C) Pneumonia DX:Pneumonia Varicella DX:Varicella Coronary artery disease DX:Coron carl artery disease Irritable bowel syndrome DX:Irri table bowel syndrome Low back pain DX:Low back pain Family History Medical History Relation Name Comments Hypertension Father Brian Cancer Mother Cynthia Lymphoma Relation Name Status Comments Father Brian Mother Cynthia Social History Tobacco Use Types Packs/Day Years [...] on file Sexual Orientation Not on file Obstetrics History Last Filed Vital Signs Vital Sign Reading Time Taken Comments Blood Pressure 134/80 08/10/2024 8:41 AM EDT Pulse 66 08/10/2024 8:41 AM EDT Temperature 36.5 ??C (97.7 ??F) 04/12/2024 10:[address] Respiratory Rate 18 04/12/2024 10:21 AM EST Oxygen Saturation 88% 08/10/2024 8:41 AM EDT Inhaled Oxygen Concentration - - Weight 58.1 kg (128 lb) 08/10/2024 8:41 AM EDT Height 177.8 cm (5' 10 ) 08/10/2024 8:41 AM EDT Body Mass Index 18.37 08/10/2024 8:41 AM EDT Plan of Treatment Upcoming Encounters Date Type Department Care Team (Late st Contact Info) Description 10/26/2024 10:00 AM EDT Ancillary Procedure [facility] [address] [place] [address] 03/04/2025 9:10 AM EDT Office Visit [facility] [address] [place] [phone] Chantal Bobby, HYUN [address] [place] [address] Health Maintenance Due Date Last Done Comments COVID-19 Vaccine (#1) 1950 DTaP,Tdap,and Td Vaccines (1 - Tdap) 1964 RSV Immunization Adult Patients (1 - 1-dose 75+ series) 2020 Depression Screening 04/09/2022 Falls Risk Assessment 04/09/2022 Medicare Annual Wellness Visit 04/09/2022 Social Influencers of Health Screening 04/09/2022 Hypertension/CHF/CAD Annual BMP Blood Test 03/11/2025 03/11/2024, 03/11/2024, 02/27/2024, Additional history exists Cholesterol Screening (Lipid Panel) 06/10/2028 06/10/2023, 06/10/2023 Pneumococcal Vaccine: 50+ Years Completed 11/04/2014, 06/07/2011 Zoster Vaccines Completed 12/27/2017, 09/10, 03/31/2007 Hepatitis C Screening Completed 06/10/2023 Influenza Vaccine Completed 02/27/2024, , 03/31/2022, Additional history exists HIB Vaccines Aged Out No longer eligi ble based on patient's age to complete this topic HPV Vaccines Aged Out No longer eligi ble based on patient's age to complete this topic Hepatitis A Vaccines Aged Out No long er eligible based on patient's age to complete this topic Hepatitis B Vaccines Aged Out No long er eligible based on patient's age to complete this topic IPV Vaccines Aged Out No longer eligi ble based on patient's age to complete this topic MMR Vaccines Aged Out No longer eligi ble based on patient's age to complete this topic Meningococcal ACWY Vaccine Aged Out N o longer eligible based on patient's age to complete this topic Meningococcal B Vaccine Aged Out No l onger eligible based on patient's age to complete this topic RSV Immunization Patients Under 20 months Aged Out No longer eligible based on patient's age to complete this topic Varicella Vaccines Aged Out No longer eligible based on patient's age to complete this topic Procedures Procedure Name Priority Date/Time Associated Diagnosis Comments ANNUAL BMP BLOOD TEST Routine 02/27/2024 HEPATITIS C SCREENING Routine 06/10/2023 LIPID PANEL Routine 06/10/2023 from Last 3 Months or Most Recently Relevant to Health Maintenance Results * Annual BMP Blood Test (02/27/2024) [facility] Annual BMP Blood Test Abstracted us Historical Provider HEALTH MAINTENANCE Final Result * Hepatitis C Screening (06/10/2023) [facility] Hepatitis C Screening Abstracted Historical Provider HEALTH MAINTENANCE Final Result * Lipid panel (06/10/2023) [facility] LDL/HDL Ratio 0 Comment:No interpretation Triglycerides 0 mg/dL Comment:No interpretation Cholesterol 0 mg/dL Comment:No interpretation HDL 0 mg/dL Comment:No interpretation LDL Cholesterol 0 mg/dL Comment:No interpretation Blood Venous blood specimen / Unknown Historical Provider LAB BLOOD ORDERABLES Lilia l Result from Last 3 Months or Most Recently Relevant to Health Maintenance Insurance [facility] Care Teams Corner Cutter Machine Operator Relationship Specialty Start Date End Date Link Garcia MD [address] [place] [address] PCP - General Family Medicine 08/23/24
--- OUTSIDE RECORDS SUMMARY | 2024-09-06 17:04 | XMS_ITS | Clinical Summary ---
Author Organization [facility] Address [address] [place] [address] Care Team Providers Care Monorail Crane Operator Name Role Phone Link Garcia MD Primary Care Provider [phone] Allergies No known active allergies Medications Medication Sig Dispensed Refills Start Date End Date Status aspirin (Aspirin Low Dose) 81 MG chewable tablet 0 Active rosuvastatin (CRESTOR) tablet 10 mg 0 Active metoprolol succinate (TOPROL-XL) 24 hr tablet 200 mg Take 1 tablet (200 mg total) by mouth daily. 0 Active nitroglycerin (NITROSTAT) 0.[address] 1 TABLET UNDER THE TONGUE EVERY 5 MINUTES NEEDED FOR CHEST PAIN 0 04/14/2023 Active hydroCHLOROthiazide (HYDRODIURIL) tablet 25 mg TAKE ONE TABLET BY MOUTH EVERY DAY 0 03/09/2024 Active Nutritional Supplements (Ensure Max Protein) LIQDIndications:Moder ate protein-calorie malnutrition (HCC) Take 1 Can by mouth 2 (two) times a day. Chocolate 94870 mL 3 04/05/2024 Active Active Problems Problem Noted Date Diagnosed Date Moderate protein-calorie malnutrition 02/29/2024 Family history of polyps in the colon 05/22/2023 Essential hypertension 06/15/2020 3 Overview: Last Assessment & Plan: [id number]/80 in office today, elevated. She remains elevated at next office visit we will make adjustments to her regimen. Continue regimen as above. Last Assessment & Plan: 159/60 in office today, elevated, starting Imdur. Continue regimen as above. Hyperlipidemia 07/24/2017 02/07/2023 Overview: Last Assessment & Plan: Last lipid panel from June 2021. Total cholesterol 121, HDL 23, LDL 64. Continue statin therapy. Last Assessment & Plan: Last lipid panel from March 2023. Total cholesterol 108, HDL 21, LDL 65. Continue statin therapy. We discussed daily low impact exercise and low-fat diet to improve his HDL. Coronary artery disease 07/24/2017 02/08/20 23 Overview: Last Assessment & Plan: Status post CLAUDIA to the RCA 2015. Stable without ischemic symptoms. He has not [...] diet and daily low impact exercise encouraged. 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 02/07/2023 Pulmonary emphysema 02/07/2017 02/07/2023 Immunizations Name Administration Dates Next Due Influenza Quad (Fluad) 0.5 mL >65Yrs (AIIV4) Influenza Trivalent (Fluad) 0.5mL (65 yrs &>) Family History Medical History Relation Name Comments Hypertension Father Brian Cancer Mother Cynthia Lymphoma Relation Name Status Comments Father Brian Mother Cynthia Social History Tobacco Use Types Packs/Day Years Used Date Smoking Tobacco: Former Cigarettes 0.5 Q uit: 11/09/2000 Pipe Cigars Smokeless Tobacco: Never Tobacco Cessation:Counseling Given: Not Answered Alcohol Use Standard Drinks/Week Comments Yes 0 (1 standard drink = 0.6 oz pur e alcohol) 20 per year Sex and Gender Information Value Date Recorded Sex Assigned at Not on file Gender Identity Not on file Sexual Orientation Not on file Job Start Date Occupation Industry Not on file Not on file Not on file Last Filed Vital Signs Vital Sign Reading Time Taken Comments Blood Pressure 98/52 04/05/2024 12:56 PM EST Pulse 104 04/05/2024 12:56 PM EST Temperature 36.9 ??C (98.4 ??F) 04/05/2024 1 2:56 PM EST Respiratory Rate 18 04/05/2024 12:5 6 PM EST Oxygen Saturation 94% 04/05/2024 12: 56 PM EST Inhaled Oxygen Concentration - - Weight 58.4 kg (128 lb 12.8 oz) 024 12:56 PM EST Height 177.8 cm (5' 10 ) 04/05/2024 12: 56 PM EST Body Mass Index 18.48 04/05/2024 12:56 PM EST Plan of Treatment Health Maintenance Due Date Last Done Comments Colon Cancer Screening (Colonoscopy) 1945 COVID-19 Vaccine (#1) 05[birth year]04/1946 Pneumococcal Vaccine (1 of 2 - PCV) 11/03/1951 DTap / Tdap / Td (1 - Tdap) 1964 Shingrix-Zoster Vaccine (1 o f 2) 11/03/1995 RSV Adult > 60+ Yrs or (1 - 1-dose 75+ series) 2020 Depression Screening 08/24/2024 08/25/2023, 08/25/2023 Fall Risk Assessment 08/24/2024 08/25/2023, 08/25/2023 Preventative Health Evaluation 08/24/2024 08/25/2023, 05/22/2023 Hepatitis C Screening Completed 06/10/2023 Influenza Vaccine Completed 02/27/2024, 02/07/2023 Hepatitis B Vaccines Aged Out No long er eligible based on patient's age to complete this topic RSV Ped < 20 months Aged Out No longe r eligible based on patient's age to complete this topic Care Teams Monorail Crane Operator Relationship Specialty Start Date End Date Link Garcia MD PCP - General Family Medicine 02/07/23 [facility] [place] [facility] D[facility]atology 02/07/23 [facility] Consulting Physician Ophthalmology 02/07/23 Dr. Arzate [facility] Cardiology 08/25/23
== END 2024-09-06 15:13 | disposition home or self-care (01) ==
LOC: HO.HPS 14:16
PROVIDERS: PCP Family Medicine; Visit Provider Hospitalist
DX: R91.8 Other nonspecific abnormal finding of lung field (principal); J43.2 Centrilobular emphysema; J96.11 Chronic respiratory failure with hypoxia
CPT/HCPCS: 99214; G2211

== ENCOUNTER 2024-10-21 07:21 | Outpatient (REF) | payer MEDICARE, SELFPAY ==
--- NOTE | ~2024-10-21 | CT_ITS ---
EXAMINATION: CT CHEST WITHOUT IV CONTRAST INDICATION: R91.8 - Other nonspecific abnormal finding of lung field COMPARISON: Comparison is made with the prior examination dated 08/22/2023. TECHNIQUE: Helical CT scan of the chest was performed without intravenous contrast. Coronal and sagittal reformatted images were generated and reviewed. This CT exam was performed with one or more of the following dose reduction techniques: automated exposure control, adjustment of the mA and/or kV according to patient size, use of iterative reconstruction technique. DLP: 123 mGy-cm CHEST: LUNGS: Again seen are emphysematous changes in the upper lung zones. Again seen is architectural distortion in the upper lung zones with bronchiectasis and cystic spaces. There is superior hilar retraction. There is mild scarring at the lung bases. No focal airspace opacities or pulmonary nodules are identified. MEDIASTINUM: There is no mediastinal lymphadenopathy. LLUVIA: Evaluation of the hilar regions is limited by lack of intravenous contrast material. CARDIOVASCULATURE: The heart is normal in size. There is no pericardial effusion. The thoracic aorta demonstrates moderate atherosclerotic calcification, but is normal in caliber. DEGREE OF CORONARY CALCIFICATION: severe PLEURA: Again seen is marked pleural thickening at the lung apices. There are extensive calcified pleural plaques bilaterally, consistent with prior asbestos exposure. There is no pleural effusion. No pneumothorax. MAIN AIRWAYS: The mainstem bronchi and proximal branches are patent. AXILLA: There is no axillary lymphadenopathy. BONES AND SOFT TISSUES: Unremarkable UPPER ABDOMEN: The visualized portions of the liver, spleen, and adrenals have an unremarkable unenhanced appearance. CT/CT chest wo IV con IMPRESSION: 1. 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 2. Biapical pleural and parenchymal scarring with associated bronchiectasis and emphysema. Electronically signed by: Stephen Mcdonnell MD 10/21/2024 08:40 AM EDT
== END 2024-10-21 07:22 | disposition home or self-care (01) ==
LOC: HO.CT 07:21
PROVIDERS: PCP Family Medicine; Visit Provider Hospitalist
DX: R91.8 Other nonspecific abnormal finding of lung field (principal)
CPT/HCPCS: 71250

== ENCOUNTER → 2024-10-21 07:22 | Outpatient (BNV) | payer MEDICARE, SELFPAY | PROVIDERS: PCP Family Medicine; Visit Provider Radiology Diagnostic Radiology | DX: J92.0 Pleural plaque with presence of asbestos (principal) | CPT/HCPCS: 71250 ==

== ENCOUNTER 2024-12-06 10:33 | Outpatient (AMB) | payer MEDICARE, SELFPAY ==
--- NOTE | 2024-12-06 10:43 | A.OFFVIS_ITS ---
Vital Signs 12/06/24 10:44 Height 5 ft 10 in BMI Reason not done Patient refused/unable BP 92/52 L Blood Pressure Location Lt brachial Position Sitting Pulse 61 Pulse Source Pulse Oximeter Pulse Oximetry (%) 95 Oxygen Delivery Method Nasal Cannula Oxygen Flow Rate 4 Intake Visit Reasons: Pulm Nodule Social Security Assessor Required: No Allergies Seasonal Allergies Allergy (Intermediate, Verified 12/06/24 10:48) sneezing, watery eyes HPI Comments Details: The patient is a 79-year-old gentleman with a known history of emphysema in addition to pulmonary nodules. His cares mainly at [place]. The patient has been complaining of progressive dyspnea. He is gotten to the point that even minimal activity such as getting dressed results in significant shortness of breath. the patient denies any chest pains or palpitations. The shortness of breath does get better when he rests. Although he has been able to do much exercise because of that issue. The patient did not have a lot of medical records sent over. We only have a face sheet with his diagnosis. However, he has not aware of having any recent pulmonary function studies or chest x-rays or CT scans. He denies any recent exposure to any fumes or toxins. He does have a dog and denies any mold exposure. The patient is a former smoker. during the office visit we did go for 6 minute walk test. The patient did desaturate down to 86% with activity. He was visibly winded with dyspnea score 8/10. Denied any chest pains or palpitations. The patient is placed on a portable conserving device with 3 L pulse. We were able to ambulate he was able to maintain a pulse ox of 92%. Explained to the patient that he needs to start oxygen. I do believe that a portable oxygen concentrator with conserving valve would be most effective in order for him to have good portability outside of the home. He will need to have a chest x-ray done in addition to pulmonary function studies. He will benefit from pulmonary rehabilitation in the near future. Based on those results will consider getting some blood work including a blood gas to ass ess for any hypercarbia. For now we are going to maximize him on Trelegy. The patient does have some wheezing on examination I do believe a short course of prednisone would also be helpful. The patient already has a nebulizer to make sure that he has enough ampules for his nebulizer available. Once the patient has PFTs and chest x-ray he will return for follow-up in the next 6-8 weeks. 09/04/2023 the patient is here for a pulmonary follow-up visit. Overall he is feeling better. The oxygen therapy has been affecting beneficial. He finds it very helpful to have. In addition to that the Trelegy inhaler was too expensive and he could not afford it so therefore he did not feel it. He did get his nebulizer and does have his nebulized solution. Based on the fact that he will be using Trelegy will add budesonide to his regimen specially since he still has significant wheezing on examination. He did undergo a CT scan of the chest which was personally by me. Does have extensive fibrotic changes to the upper lung zones. Likely occupational exposures. 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 This likely resulting in some degree of restrictive lung disease in addition to the obstructive lung disease resulting in a significant hypoxia. But is reassuring no significant nodules to wear about at this time. The patient will start the DuoNeb and the budesonide twice a day if he has not better he can always start some prednisone but I am hoping that he does not require it. He should continue to use the oxygen. 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 03/08/2024 the patient is here for pulmonary follow-up visit. Recently moved then with his ex-. The patient was having significant amount of stress. He has significant amount of weight loss. Overall he is starting to feel better now. He is starting to gain some weight. The patient did lose significant amount of weight. His appetite is good tell. 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 No concerning areas for cancer. Will have him get an x-ray at this point to make sure that he does not have an occult process going on specially with his history of asbestos and smoking. The patient will continue to use his respiratory therapy as prescribed. He is also using the oxygen with good effect. Will follow-up in 6 months at which time will have to repeat his CT scan to follow-up with the yearly CT scan. 09/06/2024 the patient is here for pulmonary follow-up visit. He is here with his ex-. He continues to have dyspnea on exertion moderate severity. He started using the oxygen more regularly. We did taken for walking oximetry and he needs to continue the oxygen at 2 L pulse with the rest and also 3-4 L pulse with activity. The patient has had significant amount of weight loss. He is going to have a colonoscopy soon. In the meantime he has not had a CAT scan in about a year and I do believe that CAT scan will be helpful to better address the significant weight loss specially with his history of asbestos. Also with worsening respiratory failure. He is willing to try an inhaler. I do believe Anoro will be a good option for him that he can use once a day. Will follow-up in 6-8 weeks to see his progress. In the meantime he is going to go for blood work. I am going to request a blood gas as I am concerned about his CO2 r etention. If he does have significant hypercarbia he may be a candidate for noninvasive ventilator. Hypercarbic carries a very poor prognosis and high risk for rehospitalization. 12/06/2024 the patient is here for a pulmonary follow-up visit. He is here with his family. The patient has had worsening shortness of breath and weakness. He was recently hospitalized at [facility]. Will request the records. He was diagnosed with heart failure. He also has a flat drier at [facility] through [facility]. The patient was given diuresis and was discharged on hydrochlorothiazide. Volume status significantly improved. The patient has been using the oxygen with good effect. He also he has been using the noninvasive ventilator at nighttime. Will go and recheck blood work including a blood gas to assess his pCO2. The patient has chronic hypercarbic respiratory failure. Will go ahead and optimize her respiratory therapy. Currently is not on any prednisone. He does not use his nebulizer twice a day as he should so therefore will start him on Wixela twice a day and then will get also request Ohtuvayre as another treatment option. He will continue to use his diuresis as prescribed. Will go ahead and have him weigh himself on a daily basis and monitor closely his weight. If he does gained a couple lb in 24 hours so 3 lb and 48 hours he should consider taking additional diuresis x1 day. The patient also will undergo blood work today. He will follow-up soon to monitor his progress. [facility] Medical History (Updated 12/06/24 @ 23:02 by Enrico Bennett MD) Asbestosis Asbestos-induced pleural plaque CHF (congestive heart failure) Pulmonary nodules Chronic hypoxemic respiratory failure COPD (chronic obstructive pulmonary disease) Social History Patient Tobacco Use Status: Former Tobacco user Tobacco use type: Cigarette Cigarette Packs Per Day: 1 Years Smoked: 60 Review of Systems Const Denies fever(s) and Reports weight loss ENT Reports nasal congestion Card Denies chest pain, Reports leg edema, Reports dyspnea and Reports dyspnea on exertion Resp Reports cough, Reports dyspnea and Reports dyspnea on exertion GI Denies abdominal pain Musc Reports no additional complaints Skin/Breast Denies rash Dyllan/Lymph Reports no additional complaints Physical Exam Vital Signs: Last Vital Signs Pulse 61 12/06/24 10:44 BP 92/52 L 12/06/24 10:44 Pulse Ox 95 12/06/24 10:44 Oxygen Delivery Method Nasal Cannula 12/06/24 10:44 Oxygen Flow Rate 4 12/06/24 10:44 Const General: comfortable HEENT Head: Yes atraumatic Neck Neck: Yes supple Chest Chest palpation & inspection: normal inspection of the chest Resp Effort & Inspection: normal respiratory effort and prolonged expiratory phase Auscultation: no wheezes and diminished lung sounds Cardio Heart sounds: S1 normal heart sound present and S2 normal heart sound present GI Palpation (GI): Soft to palpation Skin General skin exam: no rashes or lesions noted Extrem General: No cyanosis Results Reviewed Results Reviewed: CT chest personally reviewed by me +emphysema, +asbestosis/ILD,+asbestos plaques Assessment & Plan Assessment & Plan (1) Pulmonary nodules: Code(s): R91.8 - Other nonspecific abnormal finding of lung field Category: Medical (2) COPD (chronic obstructive pulmonary disease): Code(s): J44.9 - Chronic obstructive pulmonary disease, unspecified Category: Medical Qualifiers: COPD type: emphysema Emphysema type: centrilobular Qualified Code(s): J43.2 - Centrilobular emphysema (3) Chronic hypoxemic respiratory failure: Code(s): J96.11 - Chronic respiratory failure with hypoxia Category: Medical (4) CHF (congestive heart failure): Code(s): I50.9 - Heart failure, unspecified Category: Medical Qualifiers: Heart failure type: systolic Heart failure chronicity: chronic Qualified Code(s): I50.22 - Chronic systolic (congestive) heart failure (5) Asbestos-induced pleural plaque: Code(s): J92.0 - Pleural plaque with presence of asbestos Category: Medical (6) Asbestosis: Code(s): J61 - Pneumoconiosis due to asbestos and other mineral fibers Category: Medical Plan stop Anoro daily (high cost) Start Wixela start Ohtuvayre continue Duoneb BID stop BUdesonide BID continue oxygen 2L/pulse at rest 3-4L/pulse with activity. (POC from JEANNA) continue NIV, recheck VBG Bloodwork diuresis as tolerated daily weights Low Na diet F/U 4-6 weeks Orders: Orders B Type Natriuretic Peptide Today I50.9 - Heart failure, unspecified, J43.2 - Centrilobular emphysema, J96.11 - Chronic respiratory failure with hypoxia Venous Blood Gas Today I50.9 - Heart failure, unspecified, J43.2 - Centrilobular emphysema, J96.11 - Chronic respiratory failure with hypoxia Troponin-I High Sensitivity Today I50.9 - Heart failure, unspecified, J43.2 - Centrilobular emphysema, J96.11 - Chronic respiratory failure with hypoxia Complete Blood Count Auto Diff Today I50.9 - Heart failure, unspecified, J43.2 - Centrilobular emphysema, J96.11 - Chronic respiratory failure with hypoxia Basic Metabolic Panel Today I50.9 - Heart failure, unspecified, J43.2 - Centrilobular emphysema, J96.11 - Chronic respiratory failure with hypoxia Liver Panel Today I50.9 - Heart failure, unspecified, J43.2 - Centrilobular emphysema, J96.11 - Chronic respiratory failure with hypoxia Medications: New fluticasone propion-salmeterol 250-50 mcg/dose (Wixela Inhub) 1 inh inhalation Q12H 60 ea 11RF 30 days Coding Level of Care Code Est Pt Level 5 (56186) Diagnoses Pulmonary nodules R91.8 Centrilobular emphysema J43.2 COPD type: emphysema Emphysema type: centrilobular Chronic hypoxemic respiratory failure J96.11 Chronic systolic congestive heart failure I50.22 Heart failure type: systolic Heart failure chronicity: chronic Asbestos-induced pleural plaque J92.0 Asbestosis J61 Time Spent (min) 35
[2024-12-06 10:44] VITALS: BP 92/52; PULSE 61; O2SAT 95
--- OUTSIDE RECORDS SUMMARY | 2024-12-06 11:45 | XMS_ITS | Clinical Summary ---
Author Organization [facility] [address] Address [address] [place] [address] Phone Care Team Providers Care Speech Correction Consultant Name Role Phone Link Garcia MD Primary Care Provider [phone] Allergies No known active allergies Medications aspirin (ASPIR-81 ORAL) Take by mouth. Active nitroglycerin (NITROSTAT) 0.[address] 1 Tablet under the tongue every 5 minutes as needed for Chest pain. 3 Active metoprolol succinate (TOPROL-XL) 200 mg 24 hr tablet Take 1 tablet (200 mg total) by mouth 1 (one) time each day. Do not crush or chew. 90 each 2 5 Active rosuvastatin (CRESTOR) 10 mg tablet Take 1 tablet (10 mg total) by mouth 1 (one) time each day. 90 each 2 5 Active hydroCHLOROthia zide (HYDRODIURIL) 25 mg tablet TAKE ONE TABLET BY MOUTH EVERY DAY 90 tablet 3 5 Active ipratropium-alb uteroL (DUONEB) 0.5-2.5 mg/3 mL nebulizer solutionIndicat ions:Chronic obstructive pulmonary disease, unspecified COPD type ([facility] V24, [facility] V28) Take 3 mL by nebulization every 6 (six) hours if needed for wheezing or shortness of breath for up to 25 doses. 60 mL 5 Active predniSONE (DELTASONE) 20 mg tablet Take 3 tablets (60 mg total) by mouth 1 (one) time each day for 2 days, THEN 2 tablets (40 mg total) 1 (one) time each day for 3 days, THEN 1 tablet (20 mg total) 1 (one) time each day for 3 days. 15 each 5 025 doxycycline (VIBRAMYCIN) 100 mg capsule Take 1 capsule (100 mg total) by mouth 2 (two) times a day for 5 days. Take with at least 8 ounces (large glass) of water, do not lie down for 30 minutes after 10 each 5 025 Hospital, Clinic, or Other Facility Administered Medication Ordered Dose Route Frequency Start Date End Date Status TC-99M tetrofosmin P radio-isotope injection 10.3 millicurie 10.3 millicurie IV Once in imaging 11/18/2024 11/18/2024 Ende d regadenoson (LEXISCAN) injection 0.4 mg 0.4 mg IV Once in imaging 11/18/2024 11/18/2024 End ed TC-99M tetrofosmin P radio-isotope injection 30.7 millicurie 30.7 millicurie IV Once in imaging 11/18/2024 11/18/2024 Ende d aminophylline injection 50 mg 50 mg IV Once in imaging 11/18/2024 11/18/2024 Ende d Active Problems Problem Noted Date Diagnosed Date Acute on chronic hypoxic res piratory failure ([facility] V24, [facility] V28) 11/04/2024 Chest pain 06/21/2021 Overview (04/26/2024): Last Assessment [...] 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 If this is benign he will undergo an exercise nuclear stress test on medications in our office at 1st available. He will continue his current medications. Any chest pain or chest discomfort lasting 15 minutes or longer he should seek urgent medical attention. Essential hypertension 06/15/2020 Overview (04/26/2024): Last Assessment & Plan: [id number] in office today, elevated. 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 Chronic obstructive pulmonar y disease ([facility]/HCC V24, [facility] V28) 02/07/2017 Encounters Date Type Department Care Team Description 11/18/2024 12:30 PM EDT Ancillary Procedure [facility] Cardiology [facility] [address] [place] [phone] Chest pain, unspecified type 11/08/2024 Telephone [facility] [address] [place] [phone] Danie Arzate MD Hospital Follow-up 11/04/2024 11:57 AM EDT - 11/06/2024 3:56 PM EDT Hospital Encounter [facility] [address] [place] [phone] Ashish Zarate MD [place]osad[place], Estate, MD SOB (shortness of breath) (Primary Dx); Acute right-sided heart failure ([facility] V24, [facility] V28); Chest pain, unspecified type; Chronic obstructive pulmonary disease, unspecified COPD type ([facility]/HCC V24, [facility]/HCC V28); Acute on chronic hypoxic respiratory failure ([facility] V24, [facility]/HCC V28) Discharge Disposition: Home-Health Care [facility] 11/04/2024 Telephone [facility] [address] [place] [phone] Danie Arzate MD Hospital Follow-up 10/26/2024 10:00 AM EDT Ancillary Procedure [facility] Cardiology [facility] [address] [place] [phone] Coronary artery disease due to calcified coronary lesion; MCPHERSON (dyspnea on exertion) 10/25/2024 Telephone [facility] [address] [facility] [address] [place] [address] Danie Arzate MD Appointment from Last 3 Months Surgical History Surgery Date Site/Laterality Comments EYE SURGERY PROCEDURE:EYE SURGERY CARDIAC CATHETERIZATION PROCEDURE:CARDIAC CATHETERIZATION Medical History Medical History Date Comments Cancer ([facility] V24, [facility] V28) July 30 2022 DX:Cancer (HCC);COMMENT:Removed on nose COPD (chronic obstructive pu lmonary disease) ([facility] V24, [facility] V28) DX:COPD (chronic o bstructive pulmonary disease) ([facility]) Emphysema of lung ([facility] V 24, [facility] V28) DX:Emphysema of lung ([facility]) Hypertension DX:Hypertension Myocardial infarction ([facility]/H CC V24, [facility] V28) DX:Myocardial infarction (HC C) Pneumonia DX:Pneumonia [...] Sign Reading Time Taken Comments Blood Pressure 106/64 11/18/2024 12:47 PM EDT Pulse 113 11/06/2024 11:57 AM EDT Temperature 36.4 C (97.6 F) 11/06/2024 11:57 AM EDT Respiratory Rate 17 11/06/2024 11:57 AM EDT Oxygen Saturation 96% 11/06/2024 11:57 AM EDT Inhaled Oxygen Concentration - - Weight 60.3 kg (133 lb) 11/18/2024 12:26 PM EDT Height 177.8 cm (5' 10 ) 11/18/2024 12:26 PM EDT Body Mass Index 19.08 11/18/2024 12:26 PM EDT Plan of Treatment Upcoming Encounters Date Type Department Care Team (Late st Contact Info) Description 12/24/2024 9:40 AM EDT Office Visit [facility] - [facility] [address] [facility] [address] [place] [phone] Chantal Bobby NP [address] [place] [phone] 03/04/2025 9:10 AM EDT Office Visit [facility] - [facility] [address] [facility] [address] [place] [phone] Chantal Bobby NP [address] [facility] [address] [place] [phone] Health Maintenance Due Date Last Done Comments COVID-19 Vaccine (#1) 1950 DTaP,Tdap,and Td Vaccines (1 - Tdap) 1964 RSV Immunization Adult Patients (1 - 1-dose 75+ series) 2020 Medicare Annual Wellness Visit 04/09/2022 Social Influencers of Health Screening 04/09/2022 Depression Screening 05/12/2024 Influenza Vaccine (#1) 2025 , 02/07/2023, 03/31/2022, Additional history exists Falls Risk Assessment 11/06/2025 11/06/2024 Hypertension/CHF/CAD Annual BMP Blood Test 11/06/2025 11/06/2024, 11/05/2024, 11/04/2024, Additional history exists Cholesterol Screening (Lipid Panel) 06/10/2028 06/10/2023, 06/10/2023 Pneumococcal Vaccine: 50+ Years Completed 11/04/2014, 06/07/2011 Zoster Vaccines Completed 12/27/2017, 09/10, 03/31/2007 Hepatitis C Screening Completed 06/10/2023 HIB Vaccines Aged Out No longer eligi [...] Procedure Name Priority Date/Time Associated Diagnosis Comments NM LEXISCAN STRESS TEST W/ MYOCARDIAL PERFUSION Routine 11/18/2024 3:39 PM EDT Chest pain, unspecified type ECG ANNOTATED 11/09/2024 LAVENDER - EDTA Routine 11/06/2024 6:15 AM EDT EXTRA TUBES Routine 11/06/2024 6:15 AM EDT BASIC METABOLIC PANEL Routine 11/06/2024 6:15 AM EDT CBC WITH AUTO DIFFERENTIAL Routine 11/05/2024 5:55 AM EDT CBC AND DIFFERENTIAL Routine 11/05/2024 5:55 AM EDT MAGNESIUM Routine 11/05/2024 5:55 AM EDT BASIC METABOLIC PANEL Routine 11/05/2024 5:55 AM EDT TROPONIN I HIGH SENSITIVITY Routine 11/04/2024 7:33 PM EDT RESPIRATORY VIRUS PANEL MOLECULAR STUDY Routine 11/04/2024 6:[address] ANGIO CHEST WO AND/OR W CONTRAST STAT 11/04/2024 2:40 PM EDT SOB (shortness of breath) VAS US DUPLEX LOWER EXT VENOUS BILAT STAT 11/04/2024 1:54 PM EDT SOB (shortness of breath) XR CHEST 2 VIEWS STAT 11/04/2024 12:3 0 PM EDT TROPONIN I HIGH SENSITIVITY STAT 11/04/2024 12:11 PM EDT ECG 12-LEAD STAT 11/04/2024 11:53 AM EDT CBC WITH AUTO DIFFERENTIAL STAT 11/04/2024 10:46 AM EDT B-TYPE NATRIURETIC PEPTIDE STAT 11/04/2024 10:46 AM EDT MAGNESIUM STAT 11/04/2024 10:46 AM EDT LIPASE STAT 11/04/2024 10:46 AM EDT COMPREHENSIVE METABOLIC PANEL STAT 11/04/2024 10:46 AM EDT CBC AND DIFFERENTIAL STAT 11/04/2024 10:46 AM EDT TROPONIN I HIGH SENSITIVITY STAT 11/04/2024 10:46 AM EDT ECG 12-LEAD STAT 11/04/2024 10:42 AM EDT TRANSTHORACIC ECHOCARDIOGRAM (TTE) COMPLETE Routine 10/26/2024 11:06 AM EDT Coronary artery disease due to calcified coronary lesion MCPHERSON (dyspnea on exertion) HM HEPATITIS C SCREENING Routine 06/10/2023 LIPID PANEL Routine 06/10/2023 from Last 3 Months or Most Recently Relevant to Health Maintenance Results * NM LEXISCAN STRESS TEST W/ MYOCARDIAL PERFUSION (11/18/2024 3:39 PM EDT) Exercise/injec tion duration (min) 0 CV PACS STRESS Exercise/injec tion duration (sec) 47 CV PACS STRESS Peak SBP 106 mmHg CV PACS STRESS Peak DBP 64 mmHg CV PACS STRESS Peak HR 81 bpm CV PACS STRESS Baseline HR 74 bpm CV PACS STRESS Baseline SBP 106 mmHg CV PACS STRESS Baseline DBP 64 mmHg CV PACS STRESS Estimated workload 1.0 METS CV PACS STRESS Percent HR 57 % CV PACS STRESS Rate Pressure Product 8,586.0 mmHg*bpm CV PACS STRESS Target HR 120 bpm CV PACS STRESS O2 sat rest 95 % CV PACS STRESS TID 1.11 CV PACS STRESS Nuc Stress EF 70 % CV PACS STRESS Nuc Rest EF 77 % CV PACS STRESS BSA 1.73 m2 CV PACS STRESS Anatomical Region Laterality Modality Nuclear Medicine 11/18/2024 1:38 PM EDT 11/18/2024 2:15 PM EDT Impressions 11/19/2024 11:09 AM EDT Normal Regadenoson stress test with nuclear imaging. No chest pain or EKG changes consistent with ischemia. Nuclear imaging revealed no significant perfusion defects after attenuation correction was applied. There is a normal TID ratio. Gated SPECT imaging was performed and revealed an LVEF of 77 %. Incidental note of RV enlargement Narrative 11/19/2024 11:09 AM EDT Nuclear imaging of the left ventricle shows a normal cavity size. Myocardial perfusion imaging of the left ventricle reveals no significant perfusion defects after CT attenuation correction was applied to the study. Gated SPECT imaging was performed which demonstrated normal left ventricular systolic function. The calculated LVEF is 77 %. TID ratio is normal. There was left coronary artery calcification noted on CT scan. Stress Findings A pharmacological stress test was performed using regadenoson, 0.4 mg IV over 10-15 seconds, followed by radiopharmacological injection 10 seconds post infusion. Total stress time was 0 min and 47 sec. The patient reached the end of the protocol. Reversal medication aminophylline and 50 given. The patient's hemodynamic response was adequate for diagnosis. Blood pressure demonstrated a normal response. Heart rate demonstrated a normal response. The patient reported shortness of breath during the stress test. ECG 79-year-old male with past medical history of coronary artery disease, hypertension, hyperlipidemia, COPD, chronic O2 use who presents today for nuclear stress test in the setting of chest discomfort. The ECG shows sinus rhythm. There were no arrhythmias during stress. There is no significant ST abnormalities during stress. There were no arrhythmias during recovery. Nuclear Study Quality Study technique: MPI, SPECT, multi, rest and stress, 1 day and gated. Overall image quality is good. CT attenuation correction was utilized. No radiopharmaceutical dose was extravasated. Stress Function Comments Stress ejection fraction is 70%. Rest Function Comments Resting ejection fraction was 77%. Gil Weinstein MD CV STRESS PROCEDURES Final Res ult * ECG-Annotated (11/09/2024) Provider Onbase ECG ORDERABLES Final Result * Lavender tube (11/06/2024 6:15 AM EDT) Pathologist [facility] Extra Tube Hold for add-ons. 11/06/2024 9:01 AM EDT [facility] Comment:Auto resulted. Blood Venous blood specimen / Unknown Venipuncture / Unknown 11/06/2024 6:15 AM EDT 11/06/2024 7:01 AM EDT Keisha Vital MD LAB BLOOD ORDERABLES Final R esult [facility] [address] [place] [address], [place] [phone] * (ABNORMAL) Basic metabolic panel (11/06/2024 6:15 AM EDT) Only the most recent of2 resultswithin the time period is included. Sodium 134 133 - 145 mmol/L LAB CHEMISTRY METHOD 11/06/2024 7:51 AM [facility] Potassium 4.2 3.5 - 5.5 mmol/L LAB CHEMISTRY METHOD 11/06/2024 7:51 AM [facility] Chloride 91(L) 96 - 110 mmol/L LAB CHEMISTRY METHOD 11/06/2024 7:51 AM [facility] CO2 37(H) 21 - 32 mmol/L LAB CHEMISTRY METHOD 11/06/2024 7:51 AM [facility] Anion Gap 6 3 - 11 LAB CHEMISTRY METHOD 11/06/2024 7:51 AM [facility] Glucose 148(H) 70 - 100 mg/dL LAB CHEMISTRY METHOD 11/06/2024 7:51 AM [facility] BUN 36(H) 5 - 25 mg/dL LAB CHEMISTRY METHOD 11/06/2024 7:51 AM [facility] Creatinine 1.01 0.70 - 1.30 mg/dL LAB CHEMISTRY METHOD 11/06/2024 7:51 AM [facility] eGFR 76 >=60 mL/min/1. 73m2 LAB CHEMISTRY METHOD 11/06/2024 7:51 AM [facility] Comment:Calculation based on the Chronic Kidney Disease Epidemiology Collaboration (CKD-EPI) equation refit without adjustment for race. BUN/Creatinine Ratio 35.6 LAB CHEMISTRY METHOD 11/06/2024 7:51 AM [facility] Calcium 9.0 8.5 - 10.5 mg/dL LAB CHEMISTRY METHOD 11/06/2024 7:51 AM [facility] Blood Venous blood specimen / Unknown Venipuncture / Unknown 11/06/2024 6:15 AM EDT 11/06/2024 6:57 AM EDT [employer] Zahraa TORO LAB BLOOD ORDERABLES Final R esult [facility] [address] [place] [address], * (ABNORMAL) CBC auto differential (11/05/2024 5:55 AM EDT) Only the most recent of2 resultswithin the time period is included. [facility] WBC 5.8 4.8 - 10.8 K/mcL LAB HEMETOLOGY METHOD 11/05/2024 7:06 AM [facility] RBC 4.80 4.50 - 5.50 M/mcL LAB HEMETOLOGY METHOD 11/05/2024 7:06 AM [facility] Hemoglobin 14.5 13.5 - 17.5 g/dL LAB HEMETOLOGY METHOD 11/05/2024 7:06 AM [facility] Hematocrit 47.1 42.0 - 54.0 % LAB HEMETOLOGY METHOD 11/05/2024 7:06 AM [facility] MCV 99.2(H) 79.0 - 98.0 FL LAB HEMETOLOGY METHOD 11/05/2024 7:06 AM [facility] MCH 30.5 27.0 - 32.0 pcg LAB HEMETOLOGY METHOD 11/05/2024 7:06 AM [facility] MCHC 30.8(L) 32.0 - 37.0 g/dL LAB HEMETOLOGY METHOD 11/05/2024 7:06 AM [facility] RDW 13.9 11.0 - 15.0 % LAB HEMETOLOGY METHOD 11/05/2024 7:06 AM [facility] Platelets 420(H) 130 - 400 K/mcL LAB HEMETOLOGY METHOD 11/05/2024 7:06 AM [facility] MPV 9.4 7.0 - 11.0 FL LAB HEMETOLOGY METHOD 11/05/2024 7:06 AM [facility] NRBC 0.0 <1.0 % LAB HEMETOLOGY METHOD 11/05/2024 7:06 AM [facility] NRBC Absolute 0.00 <0.10 K/mcL LAB HEMETOLOGY METHOD 11/05/2024 7:06 AM [facility] Neutrophils Relative 90.4 % LAB HEMETOLOGY METHOD 11/05/2024 7:06 AM [facility] Lymphocytes Relative 6.4 % LAB HEMETOLOGY METHOD 11/05/2024 7:06 AM [facility] Monocytes Relative 2.4 % LAB HEMETOLOGY METHOD 11/05/2024 7:06 AM [facility] Eosinophils Relative 0.0 % LAB HEMETOLOGY METHOD 11/05/2024 7:06 AM [facility] Basophils Relative 0.3 % LAB HEMETOLOGY METHOD 11/05/2024 7:06 AM [facility] Immature Granulocytes Relative 0.5 % LAB HEMETOLOGY METHOD 11/05/2024 7:06 AM [facility] Neutrophils Absolute 5.21 1.50 - 7.00 K/mcL LAB HEMETOLOGY METHOD 11/05/2024 7:06 AM [facility] Lymphocytes Absolute 0.37(L) 1.00 - 5.00 K/mcL LAB HEMETOLOGY METHOD 11/05/2024 7:06 AM [facility] Monocytes Absolute 0.14(L) 0.20 - 1.00 K/mcL LAB HEMETOLOGY METHOD 11/05/2024 7:06 AM [facility] Eosinophils Absolute 0.00 0.00 - 0.50 K/mcL LAB HEMETOLOGY METHOD 11/05/2024 7:06 AM [facility] Basophils Absolute 0.02 0.00 - 0.20 K/mcL LAB HEMETOLOGY METHOD 11/05/2024 7:06 AM EDT [facility] Immature Granulocytes Absolute 0.03 0.00 - 0.03 K/mcL LAB HEMETOLOGY METHOD 11/05/2024 7:06 AM EDT [facility] Blood Venous blood specimen / Unknown Venipuncture / Unknown 11/05/2024 5:55 AM EDT 11/05/2024 6:22 AM EDT us Ashish Zarate MD LAB BLOOD ORDERABLES Final Re sult Performing Organization Address City/[facility]/ZIP Co de Phone Number [facility] [address] [place] [address], [place] [phone] * Magnesium (11/05/2024 5:55 AM EDT) Only the most recent of2 resultswithin the time period is included. Magnesium 2.2 1.9 - 2.6 mg/dL LAB CHEMISTRY METHOD 11/05/2024 7:13 AM EDT [facility] Blood Venous blood specimen / Unknown Venipuncture / Unknown 11/05/2024 5:55 AM EDT 11/05/2024 6:23 AM EDT us Ashish Zarate MD LAB BLOOD ORDERABLES Final Re sult Performing Organization Address City/[facility]/ZIP Co de Phone Number [facility] [address] [place] [address], [place] [phone] * Troponin I high sensitivity (11/04/2024 7:33 PM EDT) Only the most recent of3 resultswithin the time period is included. High Sensitivity Troponin I 10 <=79 ng/L LAB CHEMISTRY METHOD 11/04/2024 8:31 PM EDT [facility] Blood Venous blood specimen / Unknown Venipuncture / Unknown 11/04/2024 7:33 PM EDT 11/04/2024 7:55 PM EDT Narrative [facility] - 11/04/2024 8:31 PM EDT High levels of biotin in samples may falsely decrease hsTroponin values. Use caution when interpreting hsTroponin results in patients taking biotin who exhibit renal impairment (eGFR <60) or in patients taking more than 20 mg/day of biotin. Michelle VALENTINO LAB BLOOD ORDERABLES Final Resu lt [facility] [address] [place] [address], * Respiratory virus panel molecular study (11/04/2024 6:45 PM EDT) Adenovirus Detection by PCR Not Detected Not Detected LAB MICROBIOLOGY METHOD 11/04/2024 8:44 PM EDT [facility] Influenza A PCR Not Detected Not Detected LAB MICROBIOLOGY METHOD 11/04/2024 8:44 PM EDT [facility] Influenza B PCR Not Detected Not Detected LAB MICROBIOLOGY METHOD 11/04/2024 8:44 PM EDT [facility] Coronavirus 229E Not Detected Not Detected LAB MICROBIOLOGY METHOD 11/04/2024 8:44 PM EDT [facility] Coronavirus HKU1 Not Detected Not Detected LAB MICROBIOLOGY METHOD 11/04/2024 8:44 PM EDT [facility] Coronavirus OC43 Not Detected Not Detected LAB MICROBIOLOGY METHOD 11/04/2024 8:44 PM EDT [facility] Coronavirus NL63 Not Detected Not Detected LAB MICROBIOLOGY METHOD 11/04/2024 8:44 PM EDT [facility] Parainfluenza Virus 1 Not Detected Not Detected LAB MICROBIOLOGY METHOD 11/04/2024 8:44 PM EDT [facility] Parainfluenza Virus 2 Not Detected Not Detected LAB MICROBIOLOGY METHOD 11/04/2024 8:44 PM EDT [facility] Parainfluenza Virus 3 Not Detected Not Detected LAB MICROBIOLOGY METHOD 11/04/2024 8:44 PM EDT [facility] Parainfluenza Virus 4 Not Detected Not Detected LAB MICROBIOLOGY METHOD 11/04/2024 8:44 PM EDT [facility] RSV PCR Not Detected Not Detected LAB MICROBIOLOGY METHOD 11/04/2024 8:44 PM EDT [facility] Human Metapneumovirus A and B Not Detected Not Detected LAB MICROBIOLOGY METHOD 11/04/2024 8:44 PM EDT [facility] Rhinovirus/Entero virus Not Detected Not Detected LAB MICROBIOLOGY METHOD 11/04/2024 8:44 PM EDT [facility] Bordetella pertussis Not Detected Not Detected LAB MICROBIOLOGY METHOD 11/04/2024 8:44 PM EDT [facility] Bordetella parapertussis Not Detected Not Detected LAB MICROBIOLOGY METHOD 11/04/2024 8:44 PM EDT [facility] Mycoplasma pneumo by PCR Not Detected Not Detected LAB MICROBIOLOGY METHOD 11/04/2024 8:44 PM EDT [facility] Chlamydia pneumoniae Not Detected Not Detected LAB MICROBIOLOGY METHOD 11/04/2024 8:44 PM EDT [facility] SARS COV-2 Not Detected Not Detected LAB MICROBIOLOGY METHOD 11/04/2024 8:44 PM EDT [facility] Swab Both anterior nares / Unknown Non-blood Collection / Unknown 11/04/2024 6:45 PM EDT 11/04/2024 7:[address] [facility] - 11/04/2024 8:44 PM EDT Testing was performed using the [employer] Respiratory Pathogen PCR Assay. All results must be correlated with the clinical findings. Results should not be used as the sole basis for diagnosis. False Negative results may occur from the presence of sequence variants in the region targeted by the assay or the presence of inhibitors. Results may be affected by concurrent antiviral/antimicrobial therapy or levels of organisms that are below the limit of detection. Michelle VALENTINO LAB MICROBIOLOGY - GENERAL ORDYanira PAULINO Final Result [facility] [address] [place] [address], [place] [phone] * CT Angio Chest wo and/or w Contrast (11/04/2024 2:40 PM EDT) Anatomical Region Laterality Modality Body Computed Tomogra phy 11/04/2024 2:50 PM EDT Impressions 11/04/2024 2:58 PM EDT Stable extensive pleural plaques and pleural parenchymal scarring at the apices. No central pulmonary embolism. Enlarged pulmonary trunk suggestive of pulmonary arterial hypertension. -------- FINAL REPORT -------- Dictated By: Agustina Mcgee Dictated Date: 11/04/2024 14:50 ET Assigned Physician: Agustina Mcgee Reviewed and Electronically Signed By: Agustina Mcgee Signed Date: 11/04/2024 14:58 ET Workstation ID: [id number] Transcribed By: Self Edit Transcribed Date: 11/04/2024 14:50 ET Narrative 11/04/2024 2:58 PM EDT PROCEDURE: CT ANGIO CHEST INDICATION: Chest pain, nonspecific COMPARISON: 10/14/2019. TECHNIQUE: CT pulmonary angiogram performed following uneventful IV administration of ISOVUE contrast material with bolus timing technique from the thoracic inlet through the lung bases. 3-D multiplanar reformations were obtained by the technologist on an independent workstation. Siri VCT dose reduction utilizing iterative reconstruction. Total exam DLP 263 (mGy-cm) FINDINGS: Enlarged pulmonary trunk compatible with elevated pulmonary pressures. No proximal pulmonary embolism. Artifact noted distally without occlusive filling defects definitively identified. Coronary artery calcifications. The thoracic aorta is normal in caliber. There is no evidence for mediastinal or hilar lymphadenopathy. Extensive pleural parenchymal scarring at the apices as seen on prior examination associated bronchiectasis. Scarring and volume loss at the bases. Multiple pleural plaques throughout. The visualized portion of the upper abdomen demonstrates no acute findings however technique was not optimized for evaluation for more subtle lesions. The included skeletal structures are within normal limits for technique. Procedure Note Agustina Mcgee MD - 11/04/2024 PROCEDURE: CT ANGIO CHEST INDICATION: Chest pain, nonspecific COMPARISON: 10/14/2019. TECHNIQUE: CT pulmonary angiogram performed following uneventful IVadministration of ISOVUE contrast material with bolus timing techniquefrom the thoracic inlet through the lung bases. 3-D multiplanar reformations were obtained by the technologist on anindependent workstation. Siri VCT dose reduction utilizing iterative reconstruction. Total exam DLP 263 (mGy-cm) FINDINGS: Enlarged pulmonary trunk compatible with elevated pulmonary pressures. Noproximal pulmonary embolism. Artifact noted distally without occlusive filling defects definitivelyidentified. Coronary artery calcifications. The thoracic aorta is normal in caliber. There is no evidence for mediastinal or hilar lymphadenopathy. Extensive pleural parenchymal scarring at the apices as seen on priorexamination associated bronchiectasis. Scarring and volume loss at thebases. Multiple pleural plaques throughout. The visualized portion of the upper abdomen demonstrates no acute findingshowever technique was not optimized for evaluation for more subtlelesions. The included skeletal structures are within normal limits for technique. IMPRESSION: Stable extensive pleural plaques and pleural parenchymal scarring at theapices. No central pulmonary embolism. Enlarged pulmonary trunksuggestive of pulmonary arterial hypertension. -------- FINAL REPORT -------- Dictated By: Agustina Mcgee Dictated Date: 11/04/2024 14:50 ET Assigned Physician: Agustina Mcgee Reviewed and Electronically Signed By: Agustina Mcgee Signed Date: 11/04/2024 14:58 ET Workstation ID: [id number] Transcribed By: Self Edit Transcribed Date: 11/04/2024 14:50 ET us Meggan VALENTINO IMG CT PROCEDURES Lilia l Result * Vascular US Duplex Lower Extremity Venous Bilateral (11/04/2024 1:54 PM EDT) Anatomical Region Laterality Modality Vascular, Abdomen Ultrasound 11/04/2024 2:02 PM EDT Impressions 11/04/2024 2:02 PM EDT NO RIGHT OR LEFT LOWER EXTREMITY DEEP VENOUS THROMBOSIS. -------- FINAL REPORT -------- Dictated By: Agustina Mcgee Dictated Date: 11/04/2024 14:02 ET Assigned Physician: Agustina Mcgee Reviewed and Electronically Signed By: Agustina Mcgee Signed Date: 11/04/2024 14:02 ET Workstation ID: [id number] Transcribed By: Self Edit Transcribed Date: 11/04/2024 14:02 ET Narrative 11/04/2024 2:02 PM EDT PROCEDURE: VAS US DUPLEX LOWER EXT VENOUS BILAT INDICATION: edema r/o dvt TECHNIQUE: 2-D and color Doppler imaging of the lower extremity venous vasculature with compression and augmentation maneuvers. COMPARISON: No priors available. FINDINGS: RIGHT: There is normal flow, compression, and augmentation from the common femoral through the popliteal vein. Visualized calf veins unremarkable. LEFT: There is normal flow, compression, and augmentation from the common femoral through the popliteal vein. Visualized calf veins unremarkable. Procedure Note Agustina Mcgee MD - 11/04/2024 PROCEDURE: VAS US DUPLEX LOWER EXT VENOUS BILAT INDICATION: edema r/o dvt TECHNIQUE: 2-D and color Doppler imaging of the lower extremity venousvasculature with compression and augmentation maneuvers. COMPARISON: No priors available. FINDINGS: RIGHT: There is normal flow, compression, and augmentation from the commonfemoral through the popliteal vein. Visualized calf veins unremarkable. LEFT: There is normal flow, compression, and augmentation from the commonfemoral through the popliteal vein. Visualized calf veins unremarkable. IMPRESSION: NO RIGHT OR LEFT LOWER EXTREMITY DEEP VENOUS THROMBOSIS. -------- FINAL REPORT -------- Dictated By: Agustina Mcgee Dictated Date: 11/04/2024 14:02 ET Assigned Physician: Agustina Mcgee Reviewed and Electronically Signed By: Agustina Mcgee Signed Date: 11/04/2024 14:02 ET Workstation ID: [id number] Transcribed By: Self Edit Transcribed Date: 11/04/2024 14:02 ET Meggan VALENTINO CV VASCULAR PROCEDURES Final Result * XR Chest 2 Views (11/04/2024 12:30 PM EDT) Anatomical Region Laterality Modality Body Radiographic Marina ging 11/04/2024 1:24 PM EDT Impressions 11/04/2024 1:26 PM EDT Chronic pleural thickening and calcified pleural plaques. No significant change from the prior study. -------- FINAL REPORT -------- Dictated By: Allyssa Dior Dictated Date: 11/04/2024 13:24 ET Assigned Physician: Allyssa Dior Reviewed and Electronically Signed By: Allyssa Dior Signed Date: 11/04/2024 13:26 ET Workstation ID: [id number] Transcribed By: Self Edit Transcribed Date: 11/04/2024 13:24 ET Narrative 11/04/2024 1:26 PM EDT INDICATION: Chest pain FINDINGS: Two views of the chest were obtained. Compared to study from June 21, 2021. Lung russell demonstrates emphysematous changes with severe biapical pleural thickening and calcified bilateral pleural plaques with elevated pulmonary rashawn overall similar to the prior study. No pneumothorax or pneumomediastinum. No focal infiltrates or effusions. Cardiomediastinal silhouette is normal in size and shape. Bony structures are within normal limits for the patient's age. Procedure Note Allyssa Dior MD - 11/04/2024 INDICATION: Chest pain FINDINGS: Two views of the chest were obtained. Compared to study fromJune 21, 2021. Lung russell demonstrates emphysematous changes with severe biapicalpleural thickening and calcified bilateral pleural plaques with elevatedpulmonary rashawn overall similar to the prior study. No pneumothorax orpneumomediastinum. No focal infiltrates or effusions. Cardiomediastinal silhouette is normal in size and shape. Bony structures are within normal limits for the patient's age. IMPRESSION: Chronic pleural thickening and calcified pleural plaques. No significantchange from the prior study. -------- FINAL REPORT -------- Dictated By: Allyssa Dior Dictated Date: 11/04/2024 13:24 ET Assigned Physician: Allyssa Dior Reviewed and Electronically Signed By: Allyssa Dior Signed Date: 11/04/2024 13:26 ET Workstation ID: [id number] Transcribed By: Self Edit Transcribed Date: 11/04/2024 13:24 ET Philip Rao DO IMG XR PROCEDURES Final Res ult * ECG 12 lead (11/04/2024 11:53 AM EDT) Only the most recent of2 resultswithin the time period is included. [facility] Ventricular Rate ECG 59 BPM GEMUSE Atrial Rate 59 BPM GEMUSE P-R Interval 166 ms GEMUSE QRS Duration 106 ms GEMUSE Q-T Interval 444 ms GEMUSE QTc 439 ms GEMUSE P Wave Tyler 74 degrees GEMUSE R Tyler -68 degrees GEMUSE T Tyler 38 degrees GEMUSE ECG Interpretation Sinus bradycardia Incomplete right bundle branch block Left axis deviation Abnormal ECG When compared with ECG of 04-NOV-2024 10:42, (unconfirmed) No significant change was found Confirmed by Be KIDD YUFENG ([id number]) on 11/04/2024 12:20:53 PM GEMUSE 11/04/2024 11:5 3 AM EDT 11/04/2024 12:20 PM EDT Philip Rao DO ECG ORDERABLES Final Resul t GEMUSE * (ABNORMAL) B-type natriuretic peptide (11/04/2024 10:46 AM EDT) [facility] BNP 214(H) <=100 pcg/mL LAB CHEMISTRY METHOD 11/04/2024 12:21 PM EDT [facility] Blood Venous blood specimen / Unknown Venipuncture / Unknown 11/04/2024 10:46 AM EDT 11/04/2024 11:10 AM EDT us Philip Rao DO LAB BLOOD ORDERABLES Final Result [facility] [address] [place] [address], * Lipase (11/04/2024 10:46 AM EDT) [facility] Lipase 19 13 - 75 unit/L LAB CHEMISTRY METHOD 11/04/2024 11:51 AM [facility] Blood Venous blood specimen / Unknown Venipuncture / Unknown 11/04/2024 10:46 AM EDT 11/04/2024 11:10 AM EDT Philip Rao DO LAB BLOOD ORDERABLES Final Result [facility] [address] [place] [address], * (ABNORMAL) Comprehensive metabolic panel (11/04/2024 10:46 AM EDT) [facility] Sodium 134 133 - 145 mmol/L LAB CHEMISTRY METHOD 11/04/2024 11:53 AM [facility] Potassium 4.3 3.5 - 5.5 mmol/L LAB CHEMISTRY METHOD 11/04/2024 11:53 AM [facility] Chloride 91(L) 96 - 110 mmol/L LAB CHEMISTRY METHOD 11/04/2024 11:53 AM [facility] CO2 39(H) 21 - 32 mmol/L LAB CHEMISTRY METHOD 11/04/2024 11:53 AM [facility] Anion Gap 4 3 - 11 LAB CHEMISTRY METHOD 11/04/2024 11:53 AM [facility] Glucose 95 70 - 100 mg/dL LAB CHEMISTRY METHOD 11/04/2024 11:53 AM [facility] BUN 33(H) 5 - 25 mg/dL LAB CHEMISTRY METHOD 11/04/2024 11:53 AM [facility] Creatinine 0.92 0.70 - 1.30 mg/dL LAB CHEMISTRY METHOD 11/04/2024 11:53 AM [facility] eGFR 85 >=60 mL/min/1. 73m2 LAB CHEMISTRY METHOD 11/04/2024 11:53 AM [facility] Comment:Calculation based on the Chronic Kidney Disease Epidemiology Collaboration (CKD-EPI) equation refit without adjustment for race. BUN/Creatinine Ratio 35.9 LAB CHEMISTRY METHOD 11/04/2024 11:53 AM [facility] Calcium 8.7 8.5 - 10.5 mg/dL LAB CHEMISTRY METHOD 11/04/2024 11:53 AM [facility] AST (SGOT) 40 10 - 42 unit/L LAB CHEMISTRY METHOD 11/04/2024 11:53 AM [facility] ALT (SGPT) 41 10 - 60 unit/L LAB CHEMISTRY METHOD 11/04/2024 11:53 AM [facility] Alkaline Phosphatase 255(H) 42 - 121 unit/L LAB CHEMISTRY METHOD 11/04/2024 11:53 AM [facility] Total Protein 5.8(L) 6.0 - 8.0 g/dL LAB CHEMISTRY METHOD 11/04/2024 11:53 AM [facility] Albumin 2.4(L) 3.2 - 5.0 g/dL LAB CHEMISTRY METHOD 11/04/2024 11:53 AM [facility] Total Bilirubin 0.7 0.0 - 1.4 mg/dL LAB CHEMISTRY METHOD 11/04/2024 11:53 AM [facility] Blood Venous blood specimen / Unknown Venipuncture / Unknown 11/04/2024 10:46 AM EDT 11/04/2024 11:10 AM EDT us Philip Rao DO LAB BLOOD ORDERABLES Final Result [facility] [address] [place] [address], * (ABNORMAL) TRANSTHORACIC ECHOCARDIOGRAM (TTE) COMPLETE (10/26/2024 11:06 AM EDT) AV Mean Gradient 9 mmHg CV PACS Ao VTI 46.0 cm CV PACS AV Peak Bernard 2.1 m/s CV PACS AV Peak Gradient 17 mmHg CV PACS AV Area Continuity Equation 1.1 cm2 CV PACS AV Area Peak Velocity 1.1 cm2 CV PACS Aortic Arch 3.3 cm CV PACS Ascending Aorta 3.6 cm CV PACS Aortic Sinus Valsalva 3.7 cm CV PACS IVC Proximal 1.9 cm CV PACS IVSD 1.1(A) 0.6 - 1.0 cm CV PACS LVIDD 3.7(A) 4.2 - 5.8 cm CV PACS LVIDS 1.9(A) 2.5 - 4.0 cm CV PACS LVOT Diameter 2.2 cm CV PACS LVOT Mean Grad 1 mmHg CV PACS LVOT Peak VTI 13.3 cm CV PACS LVOT Mean Bernard 0.4 m/s CV PACS LVOT Peak Bernard 0.6 m/s CV PACS LVOT Peak Gradient 1 mmHg CV PACS LVPWD 1.0 0.6 - 1.0 cm CV PACS MV E' Tissue Velocity Lateral 6 cm/s CV PACS MV E' Tissue Velocity Septal 4 cm/s CV PACS LVOT Area 3.8 cm2 CV PACS LVOT Stroke Volume 51 mL CV PACS MV Deceleration [place] 1.8 m/s2 CV PACS E Wave Deceleration Time 282(A) 119 - 242 ms CV PACS MV PHT 83 ms CV PACS MV Peak A Bernard 0.70 m/s CV PACS MV Peak E Benrard 0.51 m/s CV PACS MV Area PHT 2.7 cm2 CV PACS PV Acceleration Time 42 ms CV PACS PV Peak Velocity 0.7 m/s CV PACS PV Peak Gradient 2 mmHg CV PACS RV Diastolic Basal Dimension 4.4(A) 2.5 - 4.1 cm CV PACS TAPSE 19 mm CV PACS TR Peak Velocity 4.43 m/s CV PACS TR Peak Gradient 78 mmHg CV PACS E/E' Ratio Septal 13 CV PACS E/E' Ratio Averaged 11 CV PACS LVOT Stroke Index 28 mL/m2 CV PACS Relative Wall Thickness ratio 0.54 CV PACS LVOT:AV VTI Index 0.29 CV PACS FS 49 % CV PACS LV Mass 2D 121 g CV PACS Ascending Aorta Index 1.98 cm/m2 CV PACS LVOT flow 152 mL/s CV PACS MARISELA Index (VTI) 0.60 cm2/m2 CV PACS MARISELA Index (Pk Bernard) 0.60 cm2/m2 CV PACS LVIDD Index 2.03 cm/m2 CV PACS LVIDS Index 1.04 cm/m2 CV PACS AV Velocity Ratio 0.29 CV PACS E/A Ratio 0.7 CV PACS E/E' Ratio Lateral 9 CV PACS LV Mass Index 2D 66 g/m2 CV PACS BSA 1.8 m2 CV PACS Right Ventricular Peak Systolic Pressure 81 mmHg CV PACS Est. RA Pressure 3 mmHg CV PACS Anatomical Region Laterality Modality Ultrasound Narrative 11/08/2024 11:47 AM EDT Left ventricle cavity is small. Left ventricular systolic function is low normal with an ejection fraction of 50-55%. Left ventricle mild hypertrophy. Abnormal left ventricular septal motion. Right ventricle is enlarged. Right ventricular systolic function is normal. RVSP is 81 mmHg. Atria not well seen. Right atrial pressure is normal. Aortic sclerosis without stenosis. See remainder of the report for additional findings. Left Ventricle Left ventricle cavity is small. There is mild hypertrophy. Systolic function is low normal with an ejection fraction of 50-55%. Left atrial pressure is inconclusive. There is abnormal septal motion. Right Ventricle Right ventricle cavity is dilated. Systolic function is normal. Left Atrium Left atrium was not well visualized. Right Atrium Right atrium was not well visualized. IVC/SVC Inferior vena cava structure is normal. RA pressures is estimated to be 3 mmHg (IVC diameter <21 mm and decreases >50% during inspiration). Mitral Valve The leaflets are mildly thickened. There is annular calcification. There is mild regurgitation. There is no evidence of mitral valve stenosis. Tricuspid Valve The leaflets are mildly thickened. There is mild regurgitation. There is no evidence of tricuspid valve stenosis. Aortic Valve The aortic valve is trileaflet. The leaflets are moderately thickened. There is no regurgitation. There is moderate stenosis. Pulmonic Valve Visualized portions of the pulmonic valve appear normal. No significant pulmonic valve regurgitation. There is no evidence of pulmonic valve stenosis. Ascending Aorta The Sinus of Valsalva is dilated (3.7 cm). The ascending aorta is dilated (3.6 cm). Pericardium Pericardium appears normal. Study Details Overall the study quality was technically difficult. Result [facility] Danie Arzate MD CV ECHO PROCEDURES Final Result * Hepatitis C Screening (06/10/2023) Hepatitis C Screening Abstracted Result [facility] Historical Provider HEALTH MAINTENANCE Final Result * Lipid panel (06/10/2023) LDL/HDL Ratio 0 Comment:No interpretation Triglycerides 0 mg/dL Comment:No interpretation Cholesterol 0 mg/dL Comment:No interpretation HDL 0 mg/dL Comment:No interpretation LDL Cholesterol 0 mg/dL Comment:No interpretation Blood Venous blood specimen / Unknown Result [facility] Historical Provider LAB BLOOD ORDERABLES Lilia l Result from Last 3 Months or Most Recently Relevant to Health Maintenance Insurance [facility] Advance Directives Documents on File Type Date Recorded Patient Interpreter Expl anation Advance Directives and Living Will 11/09/2024 2:11 PM MOLST Advance Directives and Living Will 11/09/2024 2:10 PM PROXY Advance Directives and Living Will 11/05/2024 1:46 PM Authorization to Release Protected Health Information * Full Code - Default (Latest Code Status on File) Date Activated Date Inactivated Comments 11/04/2024 6:04 PM 11/06/2024 6:01 PM This is orde r is used when code status has not been discussed with the patient, or code status is otherwise unknown/unconfirmed To update the patient's code status, place a code status order. Do not modify or discontinue any currently active code status orders. Healthcare Agents on File Name Relationship Healthcare Agent [facility] Communication Irlanda Mccarthy Spouse Health Care Agent Care Teams Speech Correction Consultant Relationship Specialty Start Date End Date Link Garcia MD [address] [place] [address] PCP - General Family Medicine 08/23/24
--- OUTSIDE RECORDS SUMMARY | 2024-12-06 11:45 | XMS_ITS | Clinical Summary ---
Author Organization [facility] Address [facility] [place] [address] Care Team Providers Care Industrial Energy Engineer Name Role Phone Shad Veloz MD Primary Care Provider [phone] Allergies No known active allergies Medications aspirin 81 mg Tablet, Chewable Take 81 mg by mouth daily. 30 tablet 12/03/2015 Active atorvastatin (LIPITOR) 80 mg Tablet Take 1 tablet by mouth every evening. 30 tablet 12/03/2015 Active clopidogrel (PLAVIX) 75 mg Tablet Take 1 tablet by mouth daily. 30 tablet 12/03/2015 Active fluticasone-gemini meterol (ADVAIR HFA) 115-21 mcg/actuation HFA Aerosol Inhaler Inhale 2 puffs into the lungs 2 times daily. 1 Inhaler 12/03/2015 Active lisinopril (PRINIVIL;ZESTR IL) 10 mg Tablet Take 1 tablet by mouth daily. 30 tablet 12/03/2015 Active nitroGLYcerin (NITROSTAT) 0.4 mg Tablet, Sublingual Place 1 tablet under the tongue every 5 minutes as needed for Chest pain. 90 tablet 12/03/2015 Active meTOPROLOL succinate (TOPROL-XL) 200 mg Tablet Sustained Release 24 hr Take 1 tablet by mouth daily. 30 tablet 12/03/2015 Active Active Problems Problem Noted Date Diagnosed Date ST elevation myocardial infarction (STEMI) of in [facility] 12/01/2015 Social History Tobacco Use Types Packs/Day Years Used Date Smoking Tobacco: Former Cigarettes Smokeless Tobacco: Never Alcohol Use Standard Drinks/Week Comments No 0 (1 standard drink = 0.6 oz pur e alcohol) Sex and Gender Information Value Date Recorded Sex Assigned at Not on file Legal Sex Male 11:12 PM EDT Gender Identity Not on file Sexual Orientation Not on file Last Filed Vital Signs Vital Sign Reading Time Taken Comments Blood Pressure 111/66 12/03/2015 11:00 AM EDT Pulse 70 12/03/2015 11:00 AM EDT Temperature 36.8 C (98.2 F) 12/03/2015 11:00 AM EDT Respiratory Rate 18 12/03/2015 11:00 AM EDT Oxygen Saturation 96% 12/03/2015 11:00 AM EDT Inhaled Oxygen Concentration - - Weight 86.9 kg (191 lb 9.3 oz) 12/03/2015 6:08 A M EDT Height 177.8 cm (5' 10 ) 12/01/2015 1:00 AM EDT Body Mass Index 27.49 12/01/2015 1:00 AM EDT Plan of Treatment Health Maintenance Due Date Last Done Comments Hepatitis C Screening 11/03/1963 Tetanus/Diphtheria/Pertussis Vaccines (1 - Tdap) 11/02 Pneumoccocal Vaccine: 50+ (1 of 1 - PCV) 11/03/1995 Zoster vaccine (1 of 2) 11/03/1995 Advance Directive 2000 RSV Vaccine (1 - 1-dose 75+ series) 2020 Covid-19 Vaccine (1 - 2023- season) 2024 Influenza (Flu) vaccine (1 o f 1 - Influenza standard series) 01/10/2025 Insurance MEDICARE [facility] Advance Directives * Full Code (Latest Code Status on File) Date Activated Date Inactivated Comments 12/01/2015 12:29 AM 12/03/2015 3:19 PM Question Answer Comments Does patient have capacity to make decision: Yes Content of discussion: Full code for cath [facility] Care Teams Industrial Energy Engineer Relationship Specialty Start Date End Date Shad Veloz MD [id number] [facility] [address] [place] [address] PCP - General General Internal Medicine 11/30/15
--- OUTSIDE RECORDS SUMMARY | 2024-12-06 11:45 | XMS_ITS | Clinical Summary ---
Author Organization [facility] Address [address] [place] [address] Care Team Providers Care Chemotherapist Name Role Phone Link Garcia MD Primary Care Provider [phone] Allergies No known active allergies Medications Medication [...] mouth 2 (two) times a day. Chocolate 18712 mL 3 04/05/2024 Active Active Problems Problem Noted Date Diagnosed Date Moderate protein-calorie malnutrition 02/29/2024 Family history of polyps in the colon 05/22/2023 Essential hypertension 06/15/2020 3 Overview: Last Assessment & Plan: Mplel907/80 in office today, elevated. She remains elevated [...] 104 04/05/2024 12:56 PM EST Temperature 36.9 C (98.4 F) 04/05/2024 12:56 PM EST Respiratory Rate 18 04/05/2024 12:5 [...] 08/25/2023 Preventative Health Evaluation 08/24/2024 08/25/2023, 05/22/2023 Influenza Vaccine (#1) 2025 , 02/07/2023 Hepatitis C Screening Completed 06/10/2023 Hepatitis B Vaccines Aged Out No long er eligible based on patient's age to complete this topic RSV Ped < 20 months Aged Out No longe r eligible based on patient's age to complete this topic Care Teams Chemotherapist Relationship Specialty Start Date End Date Link Garcia MD PCP - General Family Medicine 02/07/23 [facility] Dermatology 02/07/23 [facility] Consulting Physician Ophthalmology 02/07/23 Dr. Arzate [facility] Cardiology 08/25/23
--- OUTSIDE RECORDS SUMMARY | 2024-12-06 11:45 | XMS_ITS | Data Portability ---
Author Organization [employer] [facility] [employer] [employer] CBO ADMIN Address [address] [place] [address] Care Team Providers Care Culinary Specialist Name Role Phone LINK RAMIREZ Primary Care Provider [phone] LINK RAMIREZ Primary Care Provider [phone] PAUL BENNETT Beater Room Supervisor [phone] NAYE BONILLA Technical Specialist Cytology Assessment Encounter Date Assessment Date Assessment LastModified by Organization Details LastModified Time 08/11/2024 08/11/2024 Patient presente d to office today for their Medicare Annual Wellness Visit. Education was provided on healthy nutrition, including a diet rich in fruits and vegetables, minimizing simple carbohydrates, salt, and saturated fats. Encouraged regular cardiovascular exercise such as walking at least 30 minutes daily, 5 times per week. Emphasized preventive health measures and educated pt on fall prevention and community-based lifestyle interventions to help reduce health risks and promote healthy living. The patient was also advised to: Get their routine vision and dental exams. Not available 08/11/2024 11:35:51 11/17/2024 11/17/2024 This visit was performed by DESIGN CHECKER student, Telma Kelley, in collaboration with me, Link Ramirez MD. I ve reviewed the patients history and examined the patient. The above note was carefully reviewed and modified. I agree with the assessment and plan as documented here. Not available 11/28/2024 15:15:55 12/03/2024 12/03/2024 Austin is a 79-year-old male who presents to gastroenterology for follow-up of elevated liver enzymes. 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 Repeat lab work showed increase in alkaline phosphatase from 157 in July -->> 170 in August, he was then hospitalized for acute right-sided heart failure and acute on chronic respiratory failure in October and his transaminases had normalized but his alkaline phosphatase was 255. An abdominal ultrasound was performed in September which showed no abnormal bile duct or liver findings. During this hospital admission he had a CT angiogram which revealed no abnormality in the included skeletal structures. We did discuss that his elevated alkaline phosphatase could be of liver or bone origin. We will continue our workup. Plan: Ordered alkaline phos isoenzyme, 5 nucleotidase, GGT and AMA. He will be called on the results of this. Next steps to be dictated based on those results. [email or web address] Not available 12/03/2024 11:57:22 Plan of Treatment Reminders Order Date Submit Date Provider Last Modified By Organization Details Last Modified Time Details Appointments None recorded. Lab alkaline phosphatase isoenzymes, serum or plasma 2024 TETE [facility] (Centralized Electronic Ordering - All Locations), Patient Can Go To The Location Of Their Choice, 10:28:53 5' nucleotidas e 2024 TETE [facility] (Centralized Electronic Ordering - All Locations), Patient Can Go To The Location Of Their Choice, 10:28:54 gamma-gluta myl transferase (ggt), serum 2024 TETE [facility] (Centralized Electronic Ordering - All Locations), Patient Can Go To The Location Of Their Choice, 10:28:53 mitochondri al M2 igg Ab, serum 2024 TETE [facility] (Centralized Electronic Ordering - All Locations), Patient Can Go To The Location Of Their Choice, 10:28:54 hepatic function panel, serum 2024 TETE [facility] (Centralized Electronic Ordering - All Locations), Patient Can Go To The Location Of Their Choice, [id number] 5 08:11:51 Referral gastroenter ologist referral - rpt screening colonoscopy 2024 025 [email or web address] Allan MD, [address], [address], [place], [address], 09:07:25 Procedures None recorded. Surgeries None recorded. Imaging US, abdomen 2024 025 [email or web address] [facility] ([facility]), [address], [address], [place], [address], 14:59:06 Medication Orders None recorded. Patient TargetsNo targets recorded. Patient Instructions Encounter Date Encounter Id Patient Instructions Last Modified By Organization Details Last Modified Time 08/11/2024 [id number] well visit, over 65: care instructions Not available 08/11/2024 11:43:05 medicare preventive services guide Not available 08/11/2024 11:43:05 colon cancer screening: care instructions Not available 08/11/2024 11:43:05 Reason for Referral Big Data Admin Referral for Screening for malignant neoplasm of colon Screening for Colon Cancer with colonoscopy. rpt screening colonoscopy Referring Physician: Link Ramirez, Family Medicine, Encounter Date: 08/11/2024 Results Created Date Observation Date Name Description Value Unit Range Abnormal Flag Note LastModifiedBy Organization Detail LastModifiedTime 07/28/1907/28/2024 COMP. METAB OLIC PANEL (14) glucose 86 mg/dL 70-99 normal Not Available [facility] ([facility]) [address] [facility], [place], [address], 07/28/2024 08:07:44 07/28/1907/28/2024 COMP. METAB OLIC PANEL (14) BUN 42 mg/dL 8-27 above high normal Not Available [facility] ([facility]) [address] [facility], [place], [address], 07/28/2024 08:07:44 07/28/19 25 07/28/2024 COMP. METAB OLIC PANEL (14) creatinine 1.25 mg/dL 0.76-1 .27 normal Not Available [facility] ([facility]) [address] [facility] [place], [address], 07/28/2024 08:07:44 07/28/19 25 07/28/2024 COMP. METAB OLIC PANEL (14) eGFR 59 mL/mi n/1.7 3 >59 below low normal Not Available [facility] ([facility]) [address] [facility] [place], [address], 07/28/2024 08:07:44 07/28/19 25 07/28/2024 COMP. METAB OLIC PANEL (14) BUN/creatini ne ratio 34 10-24 above high normal Not Available [facility] ([facility]) [address] [facility] [place], [address], 07/28/2024 08:07:44 07/28/19 25 07/28/2024 COMP. METAB OLIC PANEL (14) sodium 141 mmol/ L 134-14 4 normal Not Available [facility] ([facility]) [address] [facility] [place], [address], 07/28/2024 08:07:44 07/28/19 25 07/28/2024 COMP. METAB OLIC PANEL (14) potassium 5.0 mmol/ L 3.5-5. 2 normal Not Available [facility] ([facility]) [address] [facility] [place], [address], 07/28/2024 08:07:44 07/28/19 25 07/28/2024 COMP. METAB OLIC PANEL (14) chloride 100 mmol/ L 96-106 normal Not Available [facility] ([facility]) [address] [facility] [place], [address], 07/28/2024 08:07:44 07/28/19 25 07/28/2024 COMP. METAB OLIC PANEL (14) carbon dioxide, total 28 mmol/ L 20-29 normal Not Available [facility] ([facility]) [address] [facility] [place], [address], 07/28/2024 08:07:44 07/28/19 25 07/28/2024 COMP. METAB OLIC PANEL (14) calcium 9.2 mg/dL 8.6-10 .2 normal Not Available [facility] ([facility]) [address] [facility] [place], [address], 07/28/2024 08:07:44 07/28/19 25 07/28/2024 COMP. METAB OLIC PANEL (14) protein, total 6.7 g/dL 6.0-8. 5 normal Not Available [facility] ([facility]) [address] [facility], [address], 07/28/2024 08:07:44 07/28/19 25 07/28/2024 COMP. METAB OLIC PANEL (14) albumin 3.8 g/dL 3.8-4. 8 normal Not Available [facility] ([facility]) [address] [place], [address], 07/28/2024 08:07:44 07/28/19 25 07/28/2024 COMP. METAB OLIC PANEL (14) globulin, total 2.9 g/dL 1.5-4. 5 Not Available [facility] ([facility]) [address] [place], [address], 07/28/2024 08:07:44 07/28/19 25 07/28/2024 COMP. METAB OLIC PANEL (14) bilirubin, total 0.7 mg/dL 0.0-1. 2 normal Not Available [facility] ([facility]) [address] [place], [address], 07/28/2024 08:07:44 07/28/19 25 07/28/2024 COMP. METAB OLIC PANEL (14) alkaline phosphatase 157 IU/L 44-121 above high normal Not Available [facility] ([facility]) [address] [place], [address], 07/28/2024 08:07:44 07/28/19 25 07/28/2024 COMP. METAB OLIC PANEL (14) AST (SGOT) 43 IU/L 0-40 above high normal Not Available [facility] ([facility]) [address] [facility] [place], [address], 07/28/2024 08:07:44 07/28/19 25 07/28/2024 COMP. METAB OLIC PANEL (14) ALT (SGPT) 42 IU/L 0-44 normal Not Available [facility] ([facility]) [address] [place], [address], 07/28/2024 08:07:44 09/09/19 25 09/09/2024 HEPAT IC FUNCT ION PANEL (7) protein, total 6.5 g/dL 6.0-8. 5 normal Not Available [facility] ([facility]) [address] [facility], [address], 09/09/2024 08:11:50 09/09/19 25 09/09/2024 HEPAT IC FUNCT ION PANEL (7) albumin 3.6 g/dL 3.8-4. 8 below low normal Not Available [facility] ([facility]) [address] [facility], [address], 09/09/2024 08:11:50 09/09/19 25 09/09/2024 HEPAT IC FUNCT ION PANEL (7) bilirubin, total 0.6 mg/dL 0.0-1. 2 normal Not Available [facility] ([facility]) [address] [facility], [address], 09/09/2024 08:11:50 09/09/19 25 09/09/2024 HEPAT IC FUNCT ION PANEL (7) bilirubin, direct 0.21 mg/dL 0.00-0 .40 normal Not Available [facility] ([facility]) [address] [place], [address], 09/09/2024 08:11:50 09/09/19 25 09/09/2024 HEPAT IC FUNCT ION PANEL (7) alkaline phosphatase 170 IU/L 44-121 above high normal Not Available [facility] ([facility]) [address] [place], [address], 09/09/2024 08:11:50 09/09/19 25 09/09/2024 HEPAT IC FUNCT ION PANEL (7) AST (SGOT) 42 IU/L 0-40 above high normal Not Available [facility] ([facility]) [address] [place], [address], 09/09/2024 08:11:50 09/09/19 25 09/09/2024 HEPAT IC FUNCT ION PANEL (7) ALT (SGPT) 43 IU/L 0-44 normal Not Available [facility] ([facility]) [address] [place], [address], 09/09/2024 08:11:50 09/15/19 25 09/14/2024 US, abdom en No observ ation record ed. [email or web address] [facility] [address], [place], [address], 09/21/2024 11:04:54 09/21/19 US, abdom en No observ ation record ed. [email or web address] ([facility]) [address], [place], [address], 11/17/2024 11:57:47 09/22/19 25 09/14/2024 US, abdom en No observ ation record ed. [email or web address] [facility] [address], [place], [address], 11/17/2024 11:57:47 10/22/19 25 10/21/2024 CT, chest , w/o contr ast No observ ation record ed. [address] (Imaging) [address] [facility], [place], [address], 11/17/2024 11:57:47 11/06/19 25 11/04/2024 consu lts No observ ation record ed. [address] U/S Dept [address] [place] [address], [address], 11/17/2024 11:57:47 11/07/19 25 11/04/2024 disch arge summa ry No observ ation record ed. [address]/S Dept [address] [place] [address], [address], 11/17/2024 11:57:47 11/09/19 25 10/26/2024 trans -thor acic echoc ardio gram (TTE) (PROC ) No observ ation record ed. [address] (Human Resources) Brandon Garcia, [place], [address], 11/17/2024 11:57:47 11/15/19 25 11/04/2024 H&P No observ ation record ed. [address]/S Dept [address] [place] [address], [address], 11/17/2024 11:57:47 11/22/19 25 11/04/2024 ED provi cassidy notes No observ ation record ed. [facility]/S Dept [address] [place] [address], [address], 11/21/2024 20:21:45 11/23/19 25 11/18/2024 imagi ng/di agnos tic resul t No observ ation record ed. [facility] [place], [address], 11/22/2024 13:56:28 Result Notes None recorded. 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 Total cholestero l 121, HDL 23, LDL 64. Continue statin therapy. Last Assessment & Plan: Last lipid panel from March 2023. Total cholestero l 108, HDL 21, LDL 65. Continue statin therapy. We discussed daily low impact exercise and low-fat diet to improve his HDL. Not Available [facility] 4 22:12:34 Coronary arteriosc lerosis 13020881 Active 2017 Coronary artery disease - Overview: Last Assessment & Plan: Status post CLAUDIA to the RCA 2016. Stable without ischemic symptoms. He has not had an echocardio gram to assess LV function in the last 6 years. We will update this. Blood pressure slightly on the higher side today. We will reassess this at next office visit. Continue aspirin, lisinopril , Toprol, and statin therapy. LDL at target. Low-salt diet and daily low impact exercise encouraged . Last Assessment & Plan: Status post CLAUDIA to the RCA 2015. Stable without ischemic symptoms. Echo shows preserved LV function and no valvular abnormalit ies. I am going to start Imdur 30 [...] adding Imdur improves this. We reviewed sublingual nitroglyce rin dosing. He has never needed this as his symptoms resolve rather quickly. Otherwise continue aspirin, lisinopril , Toprol, and statin therapy. LDL at target. Low-salt diet and daily low impact exercise encouraged . Not Available [facility] 4 22:12:34 Essential hypertens ion 25565381 Active 2020 Essential hypertensi on - Overview: Last Assessment & Plan: Yxyzk580/8 0 in office today, elevated. She remains elevated at next office visit we will make adjustment s to her regimen. Continue regimen as above. Last Assessment & Plan: 159/60 in office today, elevated, starting Imdur. Continue regimen as above. Link Ramirez MD [address] [place], [address] , [place] [employer] [facility] 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 5 08:50:49 Irritable bowel syndrome 79420954 Active 2024 Manda Toure APRN [address] [place], [address] , [employer] 5 09:10:18 Acute exacerbat ion of chronic obstructi ve pulmonary disease 039944457 Active 2024 Naseem Kelley briseida, [place] - [facility] 5 12:39:57 Alkaline phosphata se above reference range 105674721 Active 2024 Manda Toure, DESIGN CHECKER [address] [place], [address] , [facility] 5 10:27:13 Problem Notes None recorded. Medical Equipment None Reported. Allergies No known drug allergies Medications Name Sig Start Date Stop Date Status Note LastModified by Organization Details LastModified Time doxycycline hyclate 100 mg capsule TAKE ONE CAPSULE BY MOUTH TWICE A DAY FOR 5 DAYS WITH A LEAST 8 OUNCES OF WATER DO NOT LIE DOWN FOR 30 MINUTES AFTER 11/17 completed Not Available Not Available Not Available ipratropium 0.5 mg-albutero l 3 mg (2.5 mg base)/3 mL nebulizatio n soln TAKE 3ML VIA NEBULIZER EVERY 6 HOURS NEEDED FOR WHEEZING OR SHORTNESS OF BREATH active Not Available Not Available No t Available metoprolol succinate ER 200 mg tablet,exte nded release 24 hr TAKE ONE TABLET BY MOUTH EVERY DAY. DO NOT CRUSH OR CHEW active Not Available Not Available No t Available prednisone 20 mg tablet TAKE 3 TABLET BY MOUTH DAILY FOR 2 DAYS THEN 2 TABLETS BY MOUTH DAILY FOR 3 DAYS THEN 1 TABLET DAILY FOR 3 DAYS 11/17 completed Not Available Not Available Not Available isosorbide mononitrate ER 30 mg tablet,exte nded release 24 hr TAKE ONE TABLET BY MOUTH EVERY DAY 08/24 completed Not Available Not Available Not Available acetaminoph en 500 mg tablet Take 1 tablet by mouth every 6 (six) hours as needed. for pain 04/11 completed Not Available Not Available Not Available nitroglycer in 0.4 mg/hr transdermal [address] 1 patch onto the skin as needed (CP). 08/24 completed Not Available Not Available Not Available lisinopril 10 mg tablet 06/10 completed Not Available Not Available Not Available nitroglycer in 0.[address] 1 TABLET UNDER THE TONGUE EVERY 5 MINUTES NEEDED FOR CHEST PAIN 08/11 completed Not Available Not Available Not Available budesonide 0.5 mg/2 mL suspension for nebulizatio n INHALE THE CONTENTS OF ONE VIAL 2 MLS) TWO TIMES A DAY VIA NEBULIZER 06/10 completed Not Available Not Available Not Available aspirin 81 mg chewable tablet active Not Available Not Available Not Available hydrochloro thiazide 25 mg tablet TAKE ONE TABLET BY MOUTH EVERY DAY active Not Available Not Available No t Available azithromyci n 500 mg tablet TAKE ONE TABLET BY MOUTH EVERY DAY FOR 5 DAYS 11/17 completed Not Available Not Available Not Available rosuvastati n 10 mg tablet TAKE ONE TABLET BY MOUTH EVERY DAY active Not Available Not Available No t Available nebulizers active Not Available Not Av ailable Not Available Anoro Ellipta 62.5 mcg-25 mcg/actuati on powder for inhalation Inhale 1 puff every day by inhalatio n route. 11/17 completed Not Available Not Available Not Available Vitals Date Recorded Body height Body mass index (BMI) Body weight Body temperature Oxygen saturation Oxygen saturation in Arterial blood by Pulse oximetry Heart rate Systolic And Diastolic Provider Name and Address Organization Details Last Updated DateTime 177.8 cm 19.1 kg/m2 06412.7 9 g 97.6 [degF] 99 % 99 % 65 /min 118/72 mm[Hg] Naomi Valenzuela [employer] [facility] 11:09:14 Date Recorded Systolic And Diastolic Provider Name and Address Organization Details Last Updated DateTime 09/08/2024 102/64 mm[Hg] Manda Toure APRN [address] [place], [address], [employer] 09/08/2024 08:58:39 Date Recorded Body height Body mass index (BMI) Body weight Heart rate Oxygen saturation Oxygen saturation in Arterial blood by Pulse oximetry Provider Name and Address Organization Details Last Updated DateTime 177.8 cm 20.2 kg/m2 29151.5 2 g 66 /min 89 % 89 % [facility] 5 08:27:51 Date Recorded Body height Body temperature Body mass index (BMI) Body weight Heart rate Oxygen saturation Oxygen saturation in Arterial blood by Pulse oximetry Systolic And Diastolic Provider Name and Address Organization Details Last Updated DateTime 5 177.8 cm 98.1 [degF] 20.5 kg/m2 60059.7 1 g 62 /min 89 % 89 % 112/60 mm[Hg] Naomi Scottillo [facility] 5 10:56:43 Date Recorded Body height Body temperature Body mass index (BMI) Body weight Heart rate Oxygen saturation Oxygen saturation in Arterial blood by Pulse oximetry Respiratory rate Systolic And Diastolic Provider Name and Address Organization Details Last Updated DateTime 5 177.8 cm 97.8 [degF] 18.8 kg/m2 16935.6 g 65 /min 94 % 94 % 18 /min 100/64 mm[Hg] CHITRA JACOBSON [facility] 5 11:23:34 Date Recorded Body height Body temperature Body mass index (BMI) Body weight Heart rate Oxygen saturation Oxygen saturation in Arterial blood by Pulse oximetry Provider Name and Address Organization Details Last Updated DateTime 5 177.8 cm 96.9 [degF] 19.4 kg/m2 44490.9 7 g 66 /min 90 % 90 % [facility] 5 10:18:43 Social History None recorded. Functional Status None recorded. Mental Status None recorded. Family History Nothing Reported Notes:Mother Cancer Father H ypertension Medical History No medical history recorded. Immunizations Vaccine Type Date Status Note Provider Nam e and Address Organization Details Recorded Time Influenza, adjuvanted, quadrivalent, PF 02/07/2023 completed Not Available [facility] 23:06:54 Influenza, adjuvanted, trivalent, PF 02/27/2024 completed Not Available [facility] 2023 23:06:54 Past Encounters Encounter ID Performer Location Encounter Start Date Encounter Closed Date Diagnosis/Indication Diagnosis SNOMED-CT Code Diagnosis ICD10 Code Diagnosis Note [id number] Link Ramirez MD [facility] [address] [place] [address] 06/10/2024 11:06:18 06/10/2024 12:10:17 Moderate protein energy malnutrition 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 His mood and breathing have improved as well. Pulmonary emphysema 8743 3001 J43.9 Stable and may actually be improved sx. Follows with Pulm [id number] Link Ramirez MD [facility] [address] [place] [address] 08/11/2024 10:37:14 08/11/2024 11:51:40 General examination of patient 307413880 Z00.00 No new concerns found with today's screenings . Malnutriti on resolved with nml protein & albumin levels Screening for malignant neoplasm of colon 574518087 Z12.11 Never was called last year. Will refer again. Overdue for f/u colonscopy Essential hypertension 94942725 I10 BP well-contr olled on current meds Hyperlipidemia 77004595 E78.5 Well-contr olled on current statin Pulmonary emphysema 8743 3001 J43.9 Stable and on O2 and Follows with Pulm [id number] Manda Toure APRN [facility] [address] [place] [address] 09/08/2024 08:21:46 09/08/2024 09:13:10 Family history of polyp of colon 934795669 Z83.719 In his father. Liver enzy mes level above reference range 591272390 R74.8 Will repeat his hepatic function now and obtain an abdominal U/S. Will perform serum work-up with continued elevation in serum hepatic function levels. Screening for malignant neoplasm of colon 407907556 Z12.11 He is not a candidate for colonoscop y at this time due to his oxygen requiremen ts from his asbestos related pleural plaques with are present throughout his upper lobes. We weighed the benefit of using Cologuard; however, should it be positive, it will warrant a colonoscop y, which we both are not in favor of performing at this time. He is seeing his pulmonolog ist in 3 months. I will see him in 3 months to touch base on how he is doing and re-conside r at that time, but likely will forgo procedure entirely.N o anemia on his recent CBC. Irritable bowel syndrome 72409690 K58.2 His mother had IBS. 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 His symptom of diarrhea have resolved, but he can have cramping after meals with sense of incomplete evacuation .He will start on miralax 1/2 capful with 1 tbsp of metamucil in 8 ounces of water nightly. We can increase the miralax as needed for hard stools given that he does not drink enough water throughout the day. [id number] Link Ramirez MD [address] [place] [address] 8 09/17/2024 10:44:49 09/17/2024 11:33:59 Essential hypertension [id number] I10 I95.89 BP low on current meds. Was advised if his BP is <120/70, hold the Hydrochlor othiazide. Pt to call Cardio to make sure Dr. Bonilla is ok with that. Pulmonary emphysema [id number] J43.9 progressiv kailee getting worse. He is on O2 and Follows with Pulm. Sounds like he was started on BiPap [id number] Link Ramirez MD [address] [place] [address] 11/17/2024 11:05:53 11/17/2024 12:16:00 Coronary arteriosclerosis [id number] I25.10 Continue current medication regimenNuc lear stress test scheduled for tomorrow, 11/18/2024F ollowed by Dr. Bonilla cardiologi st Hyperlipidemia [id number] E78.5 Well-contr olled on current statin Acute exac erbation of chronic obstructive pulmonary disease [id number] J44.1 Progressiv kailee getting worse. He is on O2 and Follows with Pulm.On Astral [address] Bennett ([place], [place])Appt end of November5BID duonebs and PRNPatient and family education providedRT O or seek emergency care if symptoms worsen Post-disch arge follow-up [id number] Z09 Reviewed patient discharge summaryPat ient is doing okay at home with family and VNA services.F ollow-up with specialist s scheduled already. [id number] Manda Toure APRN [facility] [address] [place] [address] 12/03/2024 10:15:23 12/03/2024 11:04:31 Alkaline phosphatase above reference range [id number] R74.8 Will repeat his hepatic function now and obtain an abdominal U/S. Will perform serum work-up with continued elevation in serum hepatic function levels. Family his tory of polyp of colon [id number] Z83.719 In his father. Health Concerns Section Related Observation LastModified by Organization Detai ls LastModified Time None Recorded Concern Status LastModified by Organization Details LastModified Time None Recorded Advance Directives Directive None Recorded Payers Insurance Date Sequence Insurance Name Policy Number Policy Baumann Covered Member ID Baumann Member ID Guarantor Name 11/14/2024 1 MEDICARE B-[place]: NGS Austin Huber [id number] Austin Huber 12/03/2024 2 [place] [id number] Austin Huber [id number] Austin Huber
--- OUTSIDE RECORDS SUMMARY | 2024-12-06 11:45 | XMS_ITS ---
Author Name [facility] Organization Unknown History of Medication Use Medication [...] needed. for pain 12/30/2022 04/11/20 23 completed Anoro Ellipta 62.5 mcg-25 mcg/actuation powder for inhalation Inhale 1 puff every day by inhalation route. 11/18/19 25 completed azithromycin 500 mg tablet TAKE ONE TABLET BY MOUTH EVERY DAY FOR 5 DAYS 11/18/19 25 completed doxycycline hyclate 100 mg capsule TAKE ONE CAPSULE BY MOUTH TWICE A DAY FOR 5 DAYS WITH A LEAST 8 OUNCES OF WATER DO NOT LIE DOWN FOR 30 MINUTES AFTER 11/18/19 25 completed budesonide 0.5 mg/2 mL suspension for [...] skin as needed (CP). 08/25/19 24 completed Anoro Ellipta 62.5 mcg-25 mcg/actuation powder for inhalation Inhale 1 puff every day by inhalation route. active aspirin 81 mg chewable tablet active hydrochlorothiazide 25 mg tablet TAKE ONE TABLET BY MOUTH EVERY DAY active metoprolol succinate ER 200 mg tablet,extended release 24 hr TAKE ONE TABLET BY MOUTH EVERY DAY. DO NOT CRUSH OR CHEW active nebulizers active rosuvastatin 10 mg tablet TAKE ONE TABLET BY MOUTH EVERY DAY active aspirin (Aspirin Low Dose) 81 MG chewable tablet active metoprolol succinate (TOPROL-XL) 24 hr tablet 200 mg Take 1 tablet (200 mg total) by mouth daily. 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 ProblemAct [facility] Essential hypertension active 2020-06-15 ProblemAct [facility] Moderate protein energy malnutrition active 2024-02-29 ProblemAct [facility] T Family history of polyp of colon active 2023-05-22 ProblemAct [facility] 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 ProblemAct [facility] Acute exacerbation of chronic obstructive pulmonary disease active 2024-11-17 ProblemAct [facility] Irritable bowel syndrome active 2024-09-08 ProblemAct [facility] Pulmonary emphysema active 2017-02-07 ProblemAct [facility] 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 ProblemAct [facility] Weight loss, unintentional active EncounterDiagnosisAct [facility] Hyperkalemia active EncounterDiagnosisAct [facility] Multiple pulmonary nodules active 2017-02-11 ProblemAct [facility] Depression with anxiety active EncounterDiagnosisAct [facility] 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 2017-02-11 ProblemAct [facility] Immunizations Vaccine Date Source Lot Number Status Seasonal trivalent influenza vaccine, adjuvanted, preservative free 02/27/2024 [facility] [id number] co mpleted influenza, seasonal vaccine, quadrivalent, adjuvanted, 0.5 mL dose, preservative free 02/07/2023 [facility] [id number] 0 completed Encounters Encounter Type Encounter Reason Primary Diagnosis Location Date Ambulatory [facility] 11/29/2024 Ambulatory [facility] 09/08/2024 Ambulatory [facility] 09/08/2024 Ambulatory [facility] 07/06/2024 Ambulatory [facility] 06/10/2024 Ambulatory [facility] 06/10/2024 Emergency WEAKNESS Encounter for ge neral adult medical examination without abnormal findings [facility] 04/12/2024 Ambulatory [facility] 04/01/2024 Ambulatory Abnormal weight loss Abnormal weight loss [facility] 03/11/2024 Ambulatory Abnormal weight loss Abnormal weight loss [facility] 02/27/2024 Ambulatory Encounter for genera l adult medical examination without abnormal findings Encounter for general adult medical examination without abnormal findings [facility] 06/10/2023 Care Team Organization Name Specialty Phone Email Start Date End Da te [facility] 06/23/2024 [facility] 04/14/2024 [facility] 04/12/2024 [facility] 02/05/2023 [facility] 06/10/2023 11/23/2024
== END 2024-12-06 11:21 | disposition home or self-care (01) ==
LOC: HO.HPS 10:34
PROVIDERS: PCP Family Medicine; Visit Provider Hospitalist
DX: R91.8 Other nonspecific abnormal finding of lung field (principal); J43.2 Centrilobular emphysema; J96.11 Chronic respiratory failure with hypoxia; I50.22 Chronic systolic (congestive) heart failure; J92.0 Pleural plaque with presence of asbestos; J61 Pneumoconiosis due to asbestos and other mineral fibers
CPT/HCPCS: 99214

== ENCOUNTER 2024-12-06 10:33 | Outpatient (REF) | payer MEDICARE, SELFPAY ==
[2024-12-06 11:39] LABS: MANUAL DIFF FLAG NO
[2024-12-06 11:48] LABS: Hematocrit 45.7 % (42.0-52.0); Hemoglobin 14.0 g/dl (14.0-18.0); Imm Gran Abs Auto 0.10 X10*3/uL (0.00-0.03); Imm Gran Pct Auto 1.0 % (0.0-0.4); Lymphocytes Absolute Auto 1.6 X10*3/uL (1.2-4.9); Mean Corpuscular HGB Conc 30.6 g/dl (31.0-36.0); Mean Corpuscular Hemoglobin 29.7 pg (27.0-33.0); Mean Corpuscular Volume 96.8 fL (80.0-98.0); NRBC Abs Auto 0.000 X10*3/uL (0.0-0.012); NRBC Pct Auto 0.0 /100WBC (0.0-0.2); Platelet Count 620 X10*3/uL (160-400); Red Blood Count 4.72 X10*6/uL (4.60-5.80); White Blood Count 9.8 X10*3/uL (4.8-10.8)
[2024-12-06 12:01] LABS: Venous Blood Gas Refer to POC result
[2024-12-06 12:05] LABS: VBG HCO3 48 mmol/L (22-26); VBG O2 % Saturation 42.0 %
[2024-12-06 12:23] LABS: B Type Natriuretic Peptide 122 pg/mL (<100)
[2024-12-06 12:36] LABS: Alanine Aminotransferase 76 U/L (0-40); Albumin Level 3.2 g/dL (3.5-5.0); Alkaline Phosphatase 272 U/L (39-117); Aspartate Amino Transferase 83 U/L (5-37); Blood Urea Nitrogen 35 mg/dL (9-16); Calcium 9.2 mg/dL (8.4-10.2); Estimated Glomerular Filt Rate > 60; Total Protein 6.4 g/dL (6.5-8.0)
[2024-12-06 12:38] LABS: Troponin-I High Sensitivity < 2.7 ng/L (<3.5-35.0)
[2024-12-06 13:13] LABS: Anion Gap 10 (12-20); Carbon Dioxide 41 mmol/L (22-29); Chloride 98 mmol/L (96-108); Potassium 5.0 mmol/L (3.3-5.1); Sodium 144 mmol/L (135-145)
== END 2024-12-06 10:34 | disposition home or self-care (01) ==
LOC: HO.LAB 10:33
PROVIDERS: PCP Family Medicine; Visit Provider Hospitalist
DX: J43.2 Centrilobular emphysema (principal); J96.11 Chronic respiratory failure with hypoxia; R91.8 Other nonspecific abnormal finding of lung field; I50.22 Chronic systolic (congestive) heart failure; J92.0 Pleural plaque with presence of asbestos; Z87.891 Personal history of nicotine dependence; Z99.81 Dependence on supplemental oxygen; Z79.899 Other long term (current) drug therapy
CPT/HCPCS: 36415; 80048; 80076; 82803; 83880; 84484; 85025; 99212

== ENCOUNTER 2025-02-04 09:01 | Outpatient (AMB) | payer MEDICARE, SELFPAY ==
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
[2025-02-04 09:05] VITALS: BP 102/60; PULSE 55; O2SAT 92; BMI 19.9
--- NOTE | 2025-02-04 09:05 | MHC.OFFVIS ---
Vital Signs 02/04/25 09:05 Height 5 ft 10 in Weight 138 lb 14.259 oz BMI 19.9 BP 102/60 Blood Pressure Location Lt brachial Position Sitting Pulse 55 Pulse Source Pulse Oximeter Pulse Oximetry (%) 92 Oxygen Delivery Method Nasal Cannula Oxygen Flow Rate 3 Intake Visit Reasons: pulm nodule Tailor Fitter Required: No Accompanied by: Spouse Allergies Seasonal Allergies Allergy (Intermediate, Verified 02/04/25 09:08) sneezing, watery eyes HPI Comments Details: The patient is a 79-year-old gentleman with a known history of emphysema in addition to pulmonary nodules. His cares mainly at [place]. The patient has been complaining of progressive dyspnea. He is gotten to the point that even minimal activity such as getting dressed results in significant shortness of breath. the patient denies any chest pains or palpitations. The shortness of breath does get better when he rests. Although he has been able to do much exercise because of that issue. The patient did not have a lot of medical records sent over. We only have a face sheet with his diagnosis. However, he has not aware of having any recent pulmonary function studies or chest x-rays or CT scans. He denies any recent exposure to any fumes or toxins. He does have a dog and denies any mold exposure. The patient is a former smoker. during the office visit we did go for 6 minute walk test. The patient did desaturate down to 86% with activity. He was visibly winded with dyspnea score 8/10. Denied any chest pains or palpitations. The patient is placed on a portable conserving device with 3 L pulse. We were able to ambulate he was able to maintain a pulse ox of 92%. Explained to the patient that he needs to start oxygen. I do believe that a portable oxygen concentrator with conserving valve would be most effective in order for him to have good portability outside of the home. He will need to have a chest x-ray done in addition to pulmonary function studies. He will benefit from pulmonary rehabilitation in the near future. Based on those results will consider getting some blood work including a blood gas to assess for any hypercarbia. For now we are going to maximize him on Trelegy. The patient does have some wheezing on examination I do believe a short course of prednisone would also be helpful. The patient already has a nebulizer to make sure that he has enough ampules for his nebulizer available. Once the patient has PFTs and chest x-ray he will return for follow-up in the next 6-8 weeks. 09/04/2023 the patient is here for a pulmonary follow-up visit. Overall he is feeling better. The oxygen therapy has been affecting beneficial. He finds it very helpful to have. In addition to that the Trelegy inhaler was too expensive and he could not afford it so therefore he did not feel it. He did get his nebulizer and does have his nebulized solution. Based on the fact that he will be using Trelegy will add budesonide to his regimen specially since he still has significant wheezing on examination. He did undergo a CT scan of the chest which was personally by me. Does have extensive fibrotic changes to the upper lung zones. Likely occupational exposures. 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 This likely resulting in some degree of restrictive lung disease in addition to the obstructive lung disease resulting in a significant hypoxia. But is reassuring no significant nodules to wear about at this time. The patient will start the DuoNeb and the budesonide twice a day if he has not better he can always start some prednisone but I am hoping that he does not require it. He should continue to use the oxygen. 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 03/08/2024 the patient is here for pulmonary follow-up visit. Recently moved then with his ex-. The patient was having significant amount of stress. He has significant amount of weight loss. Overall he is starting to feel better now. He is starting to gain some weight. The patient did lose significant amount of weight. His appetite is good tell. 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 No concerning areas for cancer. Will have him get an x-ray at this point to make sure that he does not have an occult process going on specially with his history of asbestos and smoking. The patient will continue to use his respiratory therapy as prescribed. He is also using the oxygen with good effect. Will follow-up in 6 months at which time will have to repeat his CT scan to follow-up with the yearly CT scan. 09/06/2024 the patient is here for pulmonary follow-up visit. He is here with his ex-. He continues to have dyspnea on exertion moderate severity. He started using the oxygen more regularly. We did taken for walking oximetry and he needs to continue the oxygen at 2 L pulse with the rest and also 3-4 L pulse with activity. The patient has had significant amount of weight loss. He is going to have a colonoscopy soon. In the meantime he has not had a CAT scan in about a year and I do believe that CAT scan will be helpful to better address the significant weight loss specially with his history of asbestos. Also with worsening respiratory failure. He is willing to try an inhaler. I do believe Anoro will be a good option for him that he can use once a day. Will follow-up in 6-8 weeks to see his progress. In the meantime he is going to go for blood work. I am going to request a blood gas as I am concerned about his CO2 retention. If he does have significant hypercarbia he may be a candidate for noninvasive ventilator. Hypercarbic carries a very poor prognosis and high risk for rehospitalization. 12/06/2024 the patient is here for a pulmonary follow-up visit. He is here with his family. The patient has had worsening shortness of breath and weakness. He was recently hospitalized at [facility]. Will request the records. He was diagnosed with heart failure. 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 The patient was given diuresis and was discharged on hydrochlorothiazide. Volume status significantly improved. The patient has been using the oxygen with good effect. He also he has been using the noninvasive ventilator at nighttime. Will go and recheck blood work including a blood gas to assess his pCO2. The patient has chronic hypercarbic respiratory failure. Will go ahead and optimize her respiratory therapy. Currently is not on any prednisone. He does not use his nebulizer twice a day as he should so therefore will start him on Wixela twice a day and then will get also request Ohtuvayre as another treatment option. He will continue to use his diuresis as prescribed. Will go ahead and have him weigh himself on a daily basis and monitor closely his weight. If he does gained a couple lb in 24 hours so 3 lb and 48 hours he should consider taking additional diuresis x1 day. The patient also will undergo blood work today. He will follow-up soon to monitor his progress. 02/04/2025 the patient is here for a pulmonary follow-up visit. Overall the patient has been doing well. He has been exercising regularly. He is using his oxygen. He is okay to take off his oxygen as long as his pulse ox is above 90%. The patient has been using the noninvasive ventilator at nighttime. He has been affecting beneficial. He is uses it more than 4 hours a night. His last blood gas was reassuring consistent with chronic hypercarbic respiratory failure with a pCO2 of 76 mmHg. His bicarb was little elevated at 41. Will plan to repeat the blood gas in 3-4 months. The patient did not use the Ohtuvayre nebulizer medicine because of the concerns of depression. 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 He is here with his significant other and she agrees that he should not take it. Therefore he will continue with the Wixela will add Incruse any hold off on the PD 3 PD 4 inhibitor. [facility] Medical History (Updated 12/06/24 @ 23:02 by Enrico Bennett MD) Asbestosis Asbestos-induced pleural plaque CHF (congestive heart failure) Pulmonary nodules Chronic hypoxemic respiratory failure COPD (chronic obstructive pulmonary disease) Social History Patient Tobacco Use Status: Former Tobacco user Tobacco use type: Cigarette Cigarette Packs Per Day: 1 Years Smoked: 60 Review of Systems Const Denies fever(s) and Reports weight loss ENT Reports nasal congestion Card Denies chest pain, Reports leg edema, Reports dyspnea and Reports dyspnea on exertion Resp Reports cough, Reports dyspnea and Reports dyspnea on exertion GI Denies abdominal pain Musc Reports no additional complaints Skin/Breast Denies rash Dyllan/Lymph Reports no additional complaints Physical Exam Vital Signs: Last Vital Signs Pulse 55 02/04/25 09:05 BP 102/60 02/04/25 09:05 Pulse Ox 92 02/04/25 09:05 Oxygen Delivery Method Nasal Cannula 02/04/25 09:05 Oxygen Flow Rate 3 02/04/25 09:05 BMI result Body Mass Index 19.9 Const General: comfortable HEENT Head: Yes atraumatic Neck Neck: Yes supple Chest Chest palpation & inspection: normal inspection of the chest Resp Effort & Inspection: normal respiratory effort and prolonged expiratory phase Auscultation: no wheezes and diminished lung sounds Cardio Heart sounds: S1 normal heart sound present and S2 normal heart sound present GI Palpation (GI): Soft to palpation Skin General skin exam: no rashes or lesions noted Extrem General: No cyanosis Assessment & Plan Assessment & Plan (1) Pulmonary nodules: Code(s): R91.8 - Other nonspecific abnormal finding of lung field Category: Medical (2) COPD (chronic obstructive pulmonary disease): Code(s): J44.9 - Chronic obstructive pulmonary disease, unspecified Category: Medical Qualifiers: COPD type: emphysema Emphysema type: centrilobular Qualified Code(s): J43.2 - Centrilobular emphysema (3) Chronic hypoxemic respiratory failure: Code(s): J96.11 - Chronic respiratory failure with hypoxia Category: Medical (4) CHF (congestive heart failure): Code(s): I50.9 - Heart failure, unspecified Category: Medical Qualifiers: Heart failure chronicity: chronic Heart failure type: systolic Qualified Code(s): I50.22 - Chronic systolic (congestive) heart failure (5) Asbestos-induced pleural plaque: Code(s): J92.0 - Pleural plaque with presence of asbestos Category: Medical (6) Asbestosis: Code(s): J61 - Pneumoconiosis due to asbestos and other mineral fibers Category: Medical Plan continue Wixela Add Incruse Did not use the Ohtuvayre due to concerns for depression continue Duoneb BID continue oxygen 2L/pulse at rest 3-4L/pulse with activity. (POC from JEANNA) continue NIV, recheck VBG Bloodwork diuresis as tolerated daily weights Low Na diet F/U 4-6 months Orders: Orders Basic Metabolic Panel 02/04/25 J43.2 - Centrilobular emphysema Venous Blood Gas 02/04/25 J43.2 - Centrilobular emphysema Medications: New umeclidinium 62.5 mcg/actuation (Incruse Ellipta) 1 inh inhalation DAILY 30 ea 11RF 30 days J45.909 - Unspecified asthma, uncomplicated Coding Level of Care Code Est Pt Level 4 (55363) Complex EM visit Add On G2211 Diagnoses Pulmonary nodules R91.8 Centrilobular emphysema J43.2 COPD type: emphysema Emphysema type: centrilobular Chronic hypoxemic respiratory failure J96.11 Chronic systolic congestive heart failure I50.22 Heart failure chronicity: chronic Heart failure type: systolic Asbestos-induced pleural plaque J92.0 Asbestosis J61 Time Spent (min) 17
--- OUTSIDE RECORDS SUMMARY | 2025-02-04 09:38 | XMS_ITS | Encounter Summary ---
Author Organization [facility] Address [address] [place] [address] Care Team Providers Care Lighting Adviser Name Role Phone Shad Veloz MD Primary Care Provider UnavailGil Murdock MD Unavailable [phone] Alejanrda Stout NP Unavailable + [phone] Enrico Bennett MD Unavailable Unavailable Link Davis MD Primary Care Provider Unavailable Encounter Details Date Type Department Care Team Description 09/21/2018 Grief Counselor Report Medical Records [address] [place] [address] Lulu Person PA-C [address] [place] [id number] Social History Tobacco Use Types Packs/Day Years Used Date Smoking Tobacco: Former Cigarettes 1 36 Smokeless Tobacco: Never Physical Activity Answer Date Recorded On average, how many days pe r week do you engage in moderate to strenuous exercise (like walking fast, running, jogging, dancing, swimming, biking, or other activities that cause a light or heavy sweat)? 4 days 06/15/2020 On average, how many minutes do you engage in exercise at this level? 20 min 06/15/2020 Sex Assigned at Date Recorded Not on file Job Start Date Occupation Industry Not on file Not on file Not on file documented as of this encounter Plan of Treatment Not on file documented as of this encounter Visit Diagnoses Not on filedocumented in this encounter Care Teams Lighting Adviser Relationship Specialty Start Date End Date Shad Veloz MD PCP - General Internal Medicine 06/24/17 04/13/23 Link Davis MD [address] [place] [address] PCP - General Family Practice 04/14/23 Gil Hernandez MD [address] [place] [address] Specialist Cardiovascular Disease 03/27/21 Alejandra Stout NP [address] [place] [address] Cardiology 06/20/21 Enrico Bennett MD [address] [place] [id number] Specialist Pulmonology 06/22/21 documented as of this encounter
--- OUTSIDE RECORDS SUMMARY | 2025-02-04 09:38 | XMS_ITS | Encounter Summary ---
Author Organization [facility] Address [address] [place] [address] Care Team Providers Care Dry Cure Worker Name Role Phone Shad Veloz MD Primary Care Provider UnavailGil Murdock MD Unavailable [phone] Alejandra Stout NP Unavailable [phone] Enrico Bennett MD Unavailable Unavailable Link Davis MD Primary Care Provider Unavailable Encounter Details Date Type Department Care Team Description 06/21/2021 SCAN Medical Records [address] [place] [id number] Abstract, Provider Social History Tobacco Use Types Packs/Day Years Used Date Smoking Tobacco: Former Cigarettes 1 36 Smokeless Tobacco: Never Comments:quit 2000 Alcohol Use Standard Drinks/Week Comments Yes 0 (1 standard drink = 0.6 oz pur e alcohol) 1 beer a year Physical Activity Answer Date Recorded On average, [...] file Not on file Not on file COVID-19 Exposure Response Date Recorded In the last month, have you been in contact with someone who was confirmed or suspected to have Coronavirus / COVID-19? No / Unsure 06/21/2021 9:45 AM EST documented as of this encounter Plan of Treatment Not on file documented as of this encounter Procedures Procedure Name Priority Date/Time Associated Diagnosis Comments OUTSIDE IMAGING Routine 06/21/2021 documented in this encounter Results * OUTSIDE IMAGING (06/21/2021) Provider Default RADIOLOGY documented in this encounter Visit Diagnoses Not on filedocumented in this encounter Care Teams Dry Cure Worker Relationship Specialty Start Date End Date Shad Veloz MD PCP - General Internal Medicine 06/24/17 04/13/23 Link Davis MD [address] [place] [id number] PCP - General Family Practice 04/14/23 Gil Hernandez MD [address] [place] [address] Specialist Cardiovascular Disease 03/27/21 Alejandra Stout NP [address] [place] [address] Cardiology 06/20/21 Enrico Bennett MD [address] [place] [address] Specialist Pulmonology 06/22/21 documented as of this encounter
--- OUTSIDE RECORDS SUMMARY | 2025-02-04 09:38 | XMS_ITS | Encounter Summary ---
Author Organization [facility] Address [address] [place] [address] Care Team Providers Care Photocopying Equipment Mechanic Name Role Phone Shad Veloz MD Primary Care Provider UnavailGil Murdock MD Unavailable [phone] Alejandra Stout NP Unavailable + [phone] Enrico Bennett MD Unavailable Unavailable Link Davis MD Primary Care Provider Unavailable Reason for Visit * Reason Onset Date Comments E-prescribe Rx Request 08/07/2020 Incoming Erx S&S Lisinopril Encounter Details Date Type Department Care Team Description 08/07/2020 Refill Cardio PVC POC [address] [facility] [address] [place] [address] Gil Hernandez MD [address] [facility] [address] [place] [address] E-prescribe Rx Request (Incoming Erx S&S Lisinopril ) Social History Tobacco Use Types Packs/Day Years [...] on file documented as of this encounter Miscellaneous Notes * Telephone Encounter - Christiana Vaughn C.M.A. - 08/07/2020 2:25 PM EDT Erx SIMONA; renewed. documented in this encounter Plan of Treatment Not on file documented as of this encounter Visit Diagnoses Not on filedocumented in this encounter Care Teams Photocopying Equipment Mechanic Relationship Specialty Start Date End Date Shad Veloz MD PCP - General Internal Medicine 06/24/17 04/13/23 Link Davis MD [address] [place] [address] PCP - General Family Practice 04/14/23 Gil Hernandez MD [address] [place] [address] Specialist Cardiovascular Disease 03/27/21 Alejandra Stout NP [address] [place] [address] Cardiology 06/20/21 Enrico Bennett MD [address] [place] [address] Specialist Pulmonology 06/22/21 documented as of this encounter
--- OUTSIDE RECORDS SUMMARY | 2025-02-04 09:38 | XMS_ITS | Encounter Summary ---
[facility] Organization [facility] Address [address] [place] [address] Care Team Providers Care Piling Cutter Name Role Phone Shad Veloz MD Primary Care Provider UnavailGil Murdock MD Unavailable [phone] Alejandra Stout NP Unavailable + [phone] Enrico Bennett MD Unavailable Unavailable Link Davis MD Primary Care Provider Unavailable Encounter Details Date Type Department Care Team Description 06/22/2019 SCAN Medical Records [address] [place] [address] Gil Hernandez MD [address] [place] [address] Social History Tobacco Use Types Packs/Day Years [...] Name Priority Date/Time Associated Diagnosis Comments OUTSIDE EKG Routine 06/22/2019 documented in this encounter Results * OUTSIDE EKG (06/22/2019) Provider Default CARDIOLOGY documented in this encounter Visit Diagnoses Not on filedocumented in this encounter Care Teams Piling Cutter Relationship Specialty Start Date End Date Shad Veloz MD PCP - General Internal Medicine 06/24/17 04/13/23 Link Davis MD [address] [place] [address] PCP - General Family Practice 04/14/23 Gil Hernandez MD [address] [place] [address] Specialist Cardiovascular Disease 03/27/21 Alejandra Stout NP [address] [place] [address] Cardiology 06/20/21 Enrico Bennett MD [address] [place] [address] Specialist Pulmonology 06/22/21 documented as of this encounter
--- OUTSIDE RECORDS SUMMARY | 2025-02-04 09:38 | XMS_ITS | Encounter Summary ---
Author Organization [facility] Address [address] [place] [address] Care Team Providers Care Skill Training Program Coordinator Name Role Phone Shad Veloz MD Primary Care Provider UnavailGil Murdock MD Unavailable [phone] Alejandra Stout NP Unavailable + [phone] Enrico Bennett MD Unavailable Unavailable Link Davis MD Primary Care Provider Unavailable Reason for Visit * Reason Onset Date Comments other 03/27/2021 dentist Encounter Details Date Type Department Care Team Description 03/27/2021 Telephone Cardio PVC [facility] [address] [place] [address] Drive [address] [place] [address] Gil Hernandez MD [address] [place], [place] [id number] other (dentist) Social History Tobacco Use Types Packs/Day Years [...] Telephone Encounter - Christiana Vaughn C.M.A. - 03/27/2021 11:46 AM EST Left detailed message on VM and to call back for any further questions * Telephone Encounter - Alejandra Stout NP - 03/27/2021 11:42 AM EST I do not see that he has a bioprosthetic heart valve. He does not require prophylactic antibiotics.OK to proceed. * Telephone Encounter - Christiana Vaughn C.M.A. - 03/27/2021 9:07 AM EST Pt scheduled to have some teeth fillings no extractions at his dentist [facility] tomorrow. He received an email from his dentist office that states if he has lung ds or heart ds he's to contact his specialist and find out if anything needs to be done in preparation. Can he proceed with teeth fillings? [facility] [phone] * Telephone Encounter - Fiordaliza Wood - 03/27/2021 8:27 AM EST [place] is calling because his dentist mentioned that there may be an issue because he has heart and lung disease. Pt sees dentist tomorrow and he would like to straighten this out now. Please call pt [phone] documented in this encounter Plan of Treatment Not on file documented as of this encounter Visit Diagnoses Not on filedocumented in this encounter Care Teams Skill Training Program Coordinator Relationship Specialty Start Date End Date Shad Veloz MD PCP - General Internal Medicine 06/24/17 04/13/23 Link Davis MD [address] [place] [address] PCP - General Family Practice 04/14/23 Gil Hernandez MD [address] [place] [address] Specialist Cardiovascular Disease 03/27/21 Alejandra Stout NP [address] [place] [address] Cardiology 06/20/21 Enrico Bennett MD [address] [place] [address] Specialist Pulmonology 06/22/21 documented as of this encounter
--- OUTSIDE RECORDS SUMMARY | 2025-02-04 09:38 | XMS_ITS | Encounter Summary ---
Author Organization [employer] [facility] Address [address] [place] [address] Care Team Providers Care Recovery Manager Name Role Phone Shad Veloz MD Primary Care Provider UnavailGil Murdock MD Unavailable [phone] Alejandra Stout NP Unavailable [phone] Enrico Bennett MD Unavailable Unavailable Link Davis MD Primary Care Provider Unavailable Encounter Details Date Type Department Care Team Description 08/06/2017 Release of Information Medical Records [address] [place] [address] Abstract, Provider Social History Tobacco Use Types Packs/Day Years Used Date Smoking Tobacco: Former Cigarettes 1 36 Physical Activity Answer Date Recorded On average, [...] on filedocumented in this encounter Care Teams Recovery Manager Relationship Specialty Start Date End Date Shad Veloz MD PCP - General Internal Medicine 06/24/17 04/13/23 Link Davis MD Medical [facility] [address] [place] [address] PCP - General Family Practice 04/14/23 Gil Hernandez MD [address] [place] [address] Specialist Cardiovascular Disease 03/27/21 Alejandra Stout NP [address] [place] [address] Cardiology 06/20/21 Enrico Bennett MD [address] [place] [address] Specialist Pulmonology 06/22/21 documented as of this encounter
--- OUTSIDE RECORDS SUMMARY | 2025-02-04 09:38 | XMS_ITS | Encounter Summary ---
Author Organization [facility] Address [address] [place] [address] Care Team Providers Care Slip Box Changer Name Role Phone Shad Veloz MD Primary Care Provider UnavailGil Murdock MD Unavailable [phone] Alejandra Stout NP Unavailable [phone] Enrico Bennett MD Unavailable Unavailable Link Davis MD Primary Care Provider Unavailable Encounter Details Date Type Department Care Team Description 10/14/2019 Senior Energy Analyst Report Medical Records [address] [place] [address] [facility] [address] [place] [address] Social History Tobacco Use Types Packs/Day Years [...] on filedocumented in this encounter Care Teams Slip Box Changer Relationship Specialty Start Date End Date Shad Veloz MD PCP - General Internal Medicine 06/24/17 04/13/23 Link Davis MD [address] [place] [address] PCP - General Family Practice 04/14/23 Gil Hernandez MD [address] [place] [address] Specialist Cardiovascular Disease 03/27/21 Alejandra Stout NP [address] [place] [address] Cardiology 06/20/21 Enrico Bennett MD [address] [place] [address] Specialist Pulmonology 06/22/21 documented as of this encounter
--- OUTSIDE RECORDS SUMMARY | 2025-02-04 09:39 | XMS_ITS | Encounter Summary ---
Author Organization [facility] Address [address] [place] [address] Care Team Providers Care Corrosion Control Technician Name Role Phone Shad Veloz MD Primary Care Provider UnavailGil Murdock MD Unavailable [phone] Alejandra Stout NP Unavailable [phone] Enrico Bennett MD Unavailable Unavailable Link Davis MD Primary Care Provider Unavailable Encounter Details Date Type Department Care Team Description 03/14/2023 SCAN Medical Records [address] [place] [address] Abstract, Provider Social History Tobacco Use Types [...] Name Priority Date/Time Associated Diagnosis Comments OUTSIDE LAB Routine 03/14/2023 documented in this encounter Results * OUTSIDE LAB (03/14/2023) Provider Default LAB documented in this encounter Visit Diagnoses Not on filedocumented in this encounter Care Teams Corrosion Control Technician Relationship Specialty Start Date End Date Shad Veloz MD PCP - General Internal Medicine 06/24/17 04/13/23 Link Davis MD [address] [place] [address] PCP - General Family Practice 04/14/23 Gil Hernandez MD [address] [place] [address] Specialist Cardiovascular Disease 03/27/21 Alejandra Stout NP [address] [place] [address] Cardiology 06/20/21 Enrico Bennett MD [address] [place] [address] Specialist Pulmonology 06/22/21 documented as of this encounter
--- OUTSIDE RECORDS SUMMARY | 2025-02-04 09:39 | XMS_ITS | Encounter Summary ---
Author Organization [facility] Address [address] [place] [address] Care Team Providers Care Looper Fixer Name Role Phone Shad Veloz MD Primary Care Provider UnavailGil Murdock MD Unavailable [phone] Alejandra Stout NP Unavailable + [phone] Enrico Bennett MD Unavailable Unavailable Link Davis MD Primary Care Provider Unavailable Reason for Visit * Reason Comments E-prescribe Rx Request Incoming Fax Phar nay Metoprolol Encounter Details Date Type Department Care Team Description 04/26/2022 Refill Cardio PVC POC [address] [facility] [address] [place] [address] Gil Hernandez MD [address] [facility] [address] [place] [address] E-prescribe Rx Request (/Incoming Fax Pharmacy Metoprolol ) Social History Tobacco Use Types Packs/Day [...] Telephone Encounter - Christiana Vaughn C.M.A. - 04/26/2022 2:50 PM EST MARIANGEL 12/2021 w/ ENP documented in this encounter Plan of Treatment Not on file documented as of this encounter Visit Diagnoses Not on filedocumented in this encounter Care Teams Looper Fixer Relationship Specialty Start Date End Date Shad Veloz MD PCP - General Internal Medicine 06/24/17 04/13/23 Link Davis MD [address] [place] [address] PCP - General Family Practice 04/14/23 Gil Hernandez MD [address] [place] [address] Specialist Cardiovascular Disease 03/27/21 Alejandra Stout NP [address] [place] [address] Cardiology 06/20/21 Enrico Bennett MD [address] [place] [address] Specialist Pulmonology 06/22/21 documented as of this encounter
--- OUTSIDE RECORDS SUMMARY | 2025-02-04 09:39 | XMS_ITS | Clinical Summary ---
Author Organization [facility] [address] [facility] [address] Address [address] [place] [address] Phone Care Team Providers Care Fisher Seal Name Role Phone Link Garcia MD Primary Care Provider [phone] Allergies No known active allergies Medications aspirin [...] ions:Chronic obstructive pulmonary disease, unspecified COPD type (CMS/HCC V24, CMS/HCC V28) Take 3 mL by nebulization every 6 (six) hours if needed for wheezing or shortness of breath for up to 25 doses. 60 mL Active fluticasone HFA (FLOVENT HFA) 110 mcg/actuation inhaler Inhale 1 puff by mouth 2 (two) times a day. Rinse mouth with water after use to reduce aftertaste and incidence of candidiasis. Do not swallow. 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 If this is benign he will undergo an exercise nuclear stress test on medications in our office at 1st available. He will continue his current medications. Any chest pain or chest discomfort lasting 15 minutes or longer he should seek urgent medical attention. Essential hypertension 06/15/2020 Overview (04/26/2024): Last Assessment & Plan: [id number]/80 in office today, elevated. She remains elevated [...] diet and daily low impact exercise encouraged. Assessment & Plan (12/24/2024 1:02 PM EDT): Patient denies any anginal symptoms. Recent stress testing outlined above without evidence of ischemia or infarct. He will continue on aspirin, metoprolol and statin therapy. Instructed to call 911 or go to the emergency room should the patient begin to experience chest pain or pressure lasting greater than 10 minutes does not resolve with rest. Orders: Lipid panel with reflex to direct LDL; Future Hyperlipidemia 07/24/2017 Overview (04/26/2024): Last Assessment & Plan: Last lipid panel from June 2021. Total cholesterol 121, HDL 23, LDL 64. Continue statin therapy. Last Assessment & Plan: Last lipid panel from March 2023. Total cholesterol 108, HDL 21, LDL 65. Continue statin therapy. We discussed daily low impact exercise and low-fat diet to improve his HDL. Assessment & Plan (12/24/2024 1:02 PM EDT): I have given patient a lab slip to update fasting lipid profile. Goal LDL less than 70. He will continue on his current dose of rosuvastatin 10 mg and be mindful of his dietary fat intake. 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 Follows closely with pulmonology. He has recently been trialed on a new inhaler and reports improvement in breathing. Encounters Date Type Department Care Team Description 01/25/2025 12:36 PM EDT - 01/25/2025 11:59 PM EDT Hospital Encounter [facility] Nuclear Medicine [address] [place] [phone] Discharge Disposition: Home or Self Care 01/25/2025 9:35 AM EDT - 01/25/2025 11:59 PM EDT Hospital Encounter [facility] Nuclear Medicine [address] [place] [phone] Abnormal levels of other serum enzymes Discharge Disposition: Home or Self Care 01/05/2025 Telephone [facility] [address] [place] [address] Chantal Bobby NP 12/24/2024 9:40 AM EDT Office Visit [facility] [address] [place] [address] Chantal Bobby NP Coronary artery disease due to calcified coronary lesion (Primary Dx); Hyperlipidemia, unspecified hyperlipidemia type 12/06/2024 Telephone [facility] [address] [place] [address] Danie Arzate MD 11/18/2024 12:30 PM EDT Ancillary Procedure [facility] [address] [place] [address] Chest pain, unspecified type 11/08/2024 Telephone [facility] [address] [place] [address] Danie Arzate MD 11/04/2024 11:57 AM EDT - 11/06/2024 3:56 PM EDT Hospital Encounter [facility] [address] [place] [phone] Ashish Zarate MD Kokosadze, Estate, MD SOB (shortness of breath) (Primary Dx); Acute right-sided heart failure ([facility] [place] V24, [facility] V28); Chest pain, unspecified type; Chronic obstructive pulmonary disease, unspecified COPD type ([facility] V24, [facility] V28); Acute on chronic hypoxic respiratory failure ([facility] [place] V24, [facility] V28) Discharge Disposition: Home-Health Care [facility] 11/04/2024 Telephone [facility] [address] [place] [address] Danie Arzate MD from Last 3 Months Surgical History Surgery Date Site/Laterality Comments EYE SURGERY PROCEDURE:EYE SURGERY CARDIAC CATHETERIZATION PROCEDURE:CARDIAC CATHETERIZATION Medical History Medical History Date Comments Cancer ([facility] [place] [facility] V24, [facility] [place] [facility] V28) July 30 2022 DX:Cancer ([facility]);COMMENT:Removed on nose COPD (chronic obstructive pu lmonary disease) ([facility] [place] [facility] V24, [facility] V28) DX:COPD (chronic o bstructive pulmonary disease) ([facility]) Emphysema of lung ([facility] [place] V 24, [facility] [place] V28) DX:Emphysema of lung ([facility]) Hypertension DX:Hypertension Myocardial infarction ([facility]/ [facility] V24, [facility] V28) DX:Myocardial infarction (HC C) Pneumonia DX:Pneumonia Varicella DX:Varicella Coronary artery disease DX:Coron carl artery disease Irritable bowel syndrome DX:Irri table bowel syndrome Low back pain DX:Low back pain Chronic respiratory failure with hypoxia and hypercapnia ([facility] V24, [facility] V28) Family History Medical History Relation Name Comments [...] Orientation Straight 01/25/2025 9: 32 AM EDT Obstetrics History Last Filed Vital Signs Vital Sign Reading Time Taken Comments Blood Pressure 110/62 12/24/2024 9:45 AM EDT Pulse 66 12/24/2024 9:45 AM EDT Temperature 36.4 C (97.6 F) 11/06/2024 11:57 AM EDT Respiratory Rate 17 11/06/2024 11:57 AM EDT Oxygen Saturation 94% 12/24/2024 9:45 AM EDT Inhaled Oxygen Concentration - - Weight 61.7 kg (136 lb) 12/24/2024 9:45 AM EDT Height 177.8 cm (5' 10 ) 12/24/2024 9:45 AM EDT Body Mass Index 19.51 12/24/2024 9:45 AM EDT Plan of Treatment Health Maintenance [...] Completed 11/04/2014, 06/07/2011 Zoster Vaccines Completed 12/27/2017, 05/2 09/2017, 03/31/2007 Hepatitis C Screening Completed 06/10/2023 HIB [...] Name Priority Date/Time Associated Diagnosis Comments NM BONE/JOINT SCAN WHOLE BODY Routine 01/25/2025 1:30 PM EDT Abnormal levels of other serum enzymes EXTERNAL CLINICAL LAB Routine 01/12/2025 8:53 AM EDT NM LEXISCAN STRESS TEST W/ MYOCARDIAL PERFUSION [...] ECG 12-LEAD STAT 11/04/2024 10:42 AM EDT HM HEPATITIS C SCREENING Routine 06/10/2023 LIPID PANEL Routine 06/10/2023 from Last 3 Months or Most Recently Relevant to Health Maintenance Results * NM Bone/Joint Scan Whole Body (01/25/2025 1:30 PM EDT) Anatomical Region Laterality Modality Nuclear Medicine 01/25/2025 1:45 PM EDT Impressions 01/25/2025 1:48 PM EDT No scintigraphic etiology identified for ALKALINE PHOSPHATASE ELEVATION -------- FINAL REPORT -------- Dictated By: Eusebia Sams Dictated Date: 01/25/2025 13:45 ET Assigned Physician: Eusebia Sams Reviewed and Electronically Signed By: Eusebia Sams Signed Date: 01/25/2025 13:48 ET Workstation ID: [id number] Transcribed By: Self Edit Transcribed Date: 01/25/2025 13:45 ET Narrative 01/25/2025 1:48 PM EDT TYPE OF EXAM: Whole Body Bone Scan. HISTORY: 79 years Male ALKALINE PHOSPHATASE ELEVATION. RADIOPHARMACEUTICAL: 24.9 mCi of Tc99m MDP. RELEVANT PRIOR EXAMS: None available TECHNIQUE: Delayed whole body bone scan was obtained in standard anterior and posterior projections approximately after 2 hours post radiotracer administration. In addition, spot images of the head, thorax, and pelvis were also obtained. FINDINGS : Axial Skeleton (Skull, Spine, Sternum and Bilateral ribs): Unremarkable Appendicular Skeleton (Pelvis, Bilateral scapulae, upper and lower extremities): Foci of uptake in the lower and upper extremity joints, likely degenerative. Kidneys and Urinary bladder: Well-visualized Soft tissue and Remaining viscera: Unremarkable Procedure Note Eusebia Sams MD - 01/25/2025 TYPE OF EXAM: Whole Body Bone Scan. HISTORY: 79 years Male ALKALINE PHOSPHATASE ELEVATION. RADIOPHARMACEUTICAL: 24.9 mCi of Tc99m MDP. RELEVANT PRIOR EXAMS: None available TECHNIQUE: Delayed whole body bone scan was obtained in standard anteriorand posterior projections approximately after 2 hours post radiotraceradministration. In addition, spot images of the head, thorax, and pelviswere also obtained. FINDINGS : Axial Skeleton (Skull, Spine, Sternum and Bilateral ribs): Unremarkable Appendicular Skeleton (Pelvis, Bilateral scapulae, upper and lowerextremities): Foci of uptake in the lower and upper extremity joints,likely degenerative. Kidneys and Urinary bladder: Well-visualized Soft tissue and Remaining viscera: Unremarkable IMPRESSION: No scintigraphic etiology identified for ALKALINE PHOSPHATASE ELEVATION -------- FINAL REPORT -------- Dictated By: Eusebia Sams Dictated Date: 01/25/2025 13:45 ET Assigned Physician: Eusebia Sams Reviewed and Electronically Signed By: Eusebia Sams Signed Date: 01/25/2025 13:48 ET Workstation ID: [id number] Transcribed By: Self Edit Transcribed Date: 01/25/2025 13:45 ET Cierra VALENTINO IMG NM PROCEDURES Final Result * External clinical lab (01/12/2025 8:53 AM EDT) Historical Provider MD LAB BLOOD ORDERABLES Edit ed Result - Final * NM LEXISCAN STRESS TEST W/ MYOCARDIAL [...] Function Comments Resting ejection fraction was 77%. us iGl Weinstein MD CV STRESS PROCEDURES Final Res ult * ECG-Annotated (11/09/2024) us Provider Onbase ECG ORDERABLES Final Result * Lavender tube (11/06/2024 6:15 AM EDT) Extra Tube Hold for add-ons. 11/06/2024 9:01 AM [facility] Comment:Auto resulted. Blood Venous blood specimen / Unknown Venipuncture / Unknown 11/06/2024 6:15 AM EDT 11/06/2024 7:01 AM EDT us Keisha Vital MD LAB BLOOD ORDERABLES Final R esult [facility] [address] [place] [address], * (ABNORMAL) Basic metabolic panel (11/06/2024 6:15 [...] 73m2 LAB CHEMISTRY METHOD 11/06/2024 7:51 AM EDT [facility] Comment:Calculation based on the Chronic Kidney Disease Epidemiology Collaboration (CKD-EPI) equation refit without adjustment for race. BUN/Creatinine Ratio 35.6 LAB CHEMISTRY METHOD 11/06/2024 7:51 AM T [facility] Calcium 9.0 8.5 - 10.5 mg/dL LAB CHEMISTRY METHOD 11/06/2024 7:51 AM EDT [facility] Blood Venous blood specimen / Unknown Venipuncture / Unknown 11/06/2024 6:15 AM EDT 11/06/2024 6:57 AM EDT us Estate Zahraa TORO LAB BLOOD ORDERABLES Final R esult [facility] [address] [place] [address], * (ABNORMAL) CBC auto differential (11/05/2024 5:55 AM EDT) Only the most recent of2 resultswithin the time period is included. WBC 5.8 4.8 - 10.8 K/mcL LAB [...] LAB HEMETOLOGY METHOD 11/05/2024 7:06 AM EDT [facility] Lymphocytes Absolute 0.37(L) 1.00 - 5.00 K/mcL LAB HEMETOLOGY METHOD 11/05/2024 7:06 AM EDT [facility] Monocytes Absolute 0.14(L) 0.20 - 1.00 K/mcL LAB HEMETOLOGY METHOD 11/05/2024 7:06 AM EDT [facility] Eosinophils Absolute 0.00 0.00 - 0.50 K/mcL LAB HEMETOLOGY METHOD 11/05/2024 7:06 AM EDT [facility] Basophils Absolute 0.02 0.00 - 0.20 K/mcL LAB HEMETOLOGY METHOD 11/05/2024 7:06 AM EDT [facility] Immature Granulocytes Absolute 0.03 0.00 - 0.03 K/mcL LAB HEMETOLOGY METHOD 11/05/2024 7:06 AM EDT [facility] Blood Venous blood specimen / Unknown Venipuncture / Unknown 11/05/2024 5:55 AM EDT 11/05/2024 6:22 AM EDT us Ashish Zarate MD LAB BLOOD ORDERABLES Final Re sult [facility] [address] [place] [address], * Magnesium (11/05/2024 5:55 AM EDT) Only the most recent of2 resultswithin the time period is included. Magnesium 2.2 1.9 - 2.6 mg/dL LAB CHEMISTRY METHOD 11/05/2024 7:13 AM EDT [facility] Blood Venous blood specimen / Unknown Venipuncture / Unknown 11/05/2024 5:55 AM EDT 11/05/2024 6:23 AM EDT Ashish Zarate MD LAB BLOOD ORDERABLES Final Re sult Performing Organization Address City/[facility]/ZIP Co de Phone Number [facility] [address] [place] [address], [place] [phone] * Troponin I high sensitivity (11/04/2024 7:33 PM EDT) Only the most recent of3 resultswithin the time period is included. [facility] High Sensitivity Troponin I 10 <=79 ng/L LAB CHEMISTRY METHOD 11/04/2024 8:31 PM EDT [facility] Blood Venous blood specimen / Unknown Venipuncture / Unknown 11/04/2024 7:33 PM EDT 11/04/2024 7:55 PM EDT Narrative [facility] - 11/04/2024 8:31 PM EDT High levels of biotin in samples may falsely decrease hsTroponin values. Use caution when interpreting hsTroponin results in patients taking biotin who exhibit renal impairment (eGFR <60) or in patients taking more than 20 mg/day of biotin. Michelle VALENTINO LAB BLOOD ORDERABLES Final Resu lt Performing Organization Address [facility]/ZIP Co de Phone Number [facility] [address] [place] [address], [place] [phone] * Respiratory virus panel molecular study (11/04/2024 6:45 PM EDT) [facility] Adenovirus Detection by PCR Not Detected Not Detected LAB MICROBIOLOGY METHOD 11/04/2024 8:44 PM EDT [facility] Influenza A PCR Not Detected Not Detected LAB MICROBIOLOGY METHOD 11/04/2024 8:44 PM EDT [facility] Influenza B PCR Not Detected Not Detected LAB MICROBIOLOGY METHOD 11/04/2024 8:44 PM EDT [facility] Coronavirus 229E Not Detected Not Detected LAB MICROBIOLOGY METHOD 11/04/2024 8:44 PM EDT [facility] Coronavirus HKU1 Not Detected Not Detected LAB MICROBIOLOGY METHOD 11/04/2024 8:44 PM EDT [facility] Coronavirus OC43 Not Detected Not Detected LAB MICROBIOLOGY METHOD 11/04/2024 8:44 PM EDT [facility] Coronavirus NL63 Not Detected Not Detected LAB MICROBIOLOGY METHOD 11/04/2024 8:44 PM EDT [facility] Parainfluenza Virus 1 Not Detected Not Detected LAB MICROBIOLOGY METHOD 11/04/2024 8:44 PM EDT [facility] Parainfluenza Virus 2 Not Detected Not Detected LAB MICROBIOLOGY METHOD 11/04/2024 8:44 PM EDT [facility] Parainfluenza Virus 3 Not Detected Not Detected LAB MICROBIOLOGY METHOD 11/04/2024 8:44 PM EDT [facility] Parainfluenza Virus 4 Not Detected Not Detected LAB MICROBIOLOGY METHOD 11/04/2024 8:44 PM EDT [facility] RSV PCR Not Detected Not Detected LAB MICROBIOLOGY METHOD 11/04/2024 8:44 PM EDT [facility] Human Metapneumovirus A and B Not Detected Not Detected LAB MICROBIOLOGY METHOD 11/04/2024 8:44 PM EDT [facility] Rhinovirus/Entero virus Not Detected Not Detected LAB MICROBIOLOGY METHOD 11/04/2024 8:44 PM EDT [facility] Bordetella pertussis Not Detected Not Detected LAB MICROBIOLOGY METHOD 11/04/2024 8:44 PM EDT [facility] Bordetella parapertussis Not Detected Not Detected LAB MICROBIOLOGY METHOD 11/04/2024 8:44 PM EDT [facility] Mycoplasma pneumo by PCR Not Detected Not Detected LAB MICROBIOLOGY METHOD 11/04/2024 8:44 PM EDT [facility] Chlamydia pneumoniae Not Detected Not Detected LAB MICROBIOLOGY METHOD 11/04/2024 8:44 PM EDT [facility] SARS COV-2 Not Detected Not Detected LAB MICROBIOLOGY METHOD 11/04/2024 8:44 PM EDT [facility] Swab Both anterior nares / Unknown Non-blood Collection / Unknown 11/04/2024 6:45 PM EDT 11/04/2024 7:38 PM EDT Narrative [facility] - 11/04/2024 8:44 PM EDT Testing was performed using the [employer] Respiratory Pathogen PCR Assay. All results must [...] detection. Michelle VALENTINO LAB MICROBIOLOGY - [facility] Final Result [facility] [address] [place] [address], * CT Angio Chest wo and/or w [...] Signed Date: 11/04/2024 14:58 ET Workstation ID: [id number] Transcribed By: Self Edit Transcribed Date: 11/04/2024 14:50 ET Narrative 11/04/2024 2:58 PM EDT PROCEDURE: CT ANGIO CHEST INDICATION: Chest pain, nonspecific COMPARISON: 10/14/2019. TECHNIQUE: CT pulmonary angiogram performed following uneventful IV administration of ISOVUE contrast material with bolus timing technique from the thoracic inlet through the lung bases. 3-D multiplanar reformations were obtained by the technologist on an independent workstation. GE Lightspeed VCT dose reduction utilizing iterative reconstruction. Total [...] obtained by the technologist on anindependent workstation. GE INRFOODpeed VCT dose reduction utilizing iterative reconstruction. Total [...] Signed Date: 11/04/2024 14:58 ET Workstation ID: [id number] Transcribed By: Self Edit Transcribed Date: 11/04/2024 14:50 ET us Meggan MumtazsOmi PA IMG CT PROCEDURES Lilia l Result * [...] Signed Date: 11/04/2024 14:02 ET Workstation ID: [id number] Transcribed By: Self Edit Transcribed Date: 11/04/2024 [...] Signed Date: 11/04/2024 14:02 ET Workstation ID: [id number] Transcribed By: Self Edit Transcribed Date: 11/04/2024 14:02 ET us Meggan VALENTINO CV VASCULAR PROCEDURES Final Result [...] Signed Date: 11/04/2024 13:26 ET Workstation ID: [id number] Transcribed By: Self Edit Transcribed Date: 11/04/2024 [...] the chest were obtained. [facility] Lung russell demonstrates emphysematous changes with [...] Signed Date: 11/04/2024 13:26 ET Workstation ID: [id number] Transcribed By: Self Edit Transcribed Date: 11/04/2024 13:24 ET Philip Rao DO IMG XR PROCEDURES Final Res ult * ECG 12 lead (11/04/2024 11:53 AM EDT) Only the most recent of2 resultswithin the time period is included. Ventricular Rate ECG 59 BPM GEMUSE Atrial Rate 59 BPM GEMUSE P-R Interval 166 ms GEMUSE QRS Duration 106 ms GEMUSE Q-T Interval 444 ms GEMUSE QTc 439 ms GEMUSE P Wave [place] 74 degrees GEMUSE R [place] -68 degrees GEMUSE T [place] 38 degrees GEMUSE ECG Interpretation Sinus bradycardia [...] B-type natriuretic peptide (11/04/2024 10:46 AM EDT) Pathologist [facility] BNP 214(H) <=100 pcg/mL LAB CHEMISTRY METHOD 11/04/2024 12:21 PM EDT [facility] Blood Venous blood specimen / Unknown Venipuncture / Unknown 11/04/2024 10:46 AM EDT 11/04/2024 11:10 AM EDT Philip Rao DO LAB BLOOD ORDERABLES Final Result [facility] [address] [place] [address], [place] [phone] * Lipase (11/04/2024 10:46 AM EDT) [facility] Lipase 19 13 - 75 unit/L LAB CHEMISTRY METHOD 11/04/2024 11:51 AM EDT [facility] Blood Venous blood specimen / Unknown Venipuncture / Unknown 11/04/2024 10:46 AM EDT 11/04/2024 11:10 AM EDT Philip Rao DO LAB BLOOD ORDERABLES Final Result Performing Organization Address City/[facility]/ZIP Co de Phone Number [facility] [address] [place] [address], [place] [phone] * (ABNORMAL) Comprehensive metabolic panel (11/04/2024 10:46 AM EDT) [facility] Sodium 134 133 - 145 mmol/L LAB CHEMISTRY METHOD 11/04/2024 11:53 AM EDT [facility] Potassium 4.3 3.5 - 5.5 mmol/L LAB CHEMISTRY METHOD 11/04/2024 11:53 AM EDT [facility] Chloride 91(L) [...] g/dL LAB CHEMISTRY METHOD 11/04/2024 11:53 AM EDT [facility] Total Bilirubin 0.7 0.0 - 1.4 mg/dL LAB CHEMISTRY METHOD 11/04/2024 11:53 AM EDT [facility] Blood Venous blood specimen / Unknown Venipuncture / Unknown 11/04/2024 10:46 AM EDT 11/04/2024 11:10 AM EDT Philip Rao DO LAB BLOOD ORDERABLES Final Result [facility] [address] [place] [address], * Hepatitis C Screening (06/10/2023) Pathologist [facility] Hepatitis C Screening Abstracted Historical Provider HEALTH [...] Most Recently Relevant to Health Maintenance Insurance Member Subscriber Plan / Payer (Ef fective 2010-Present) Name:AUSTIN MCCARTHY Member ID:[id number] Relation to Subscriber:Self Name:Austin Mccarthy Subscriber ID:[id number] Payer ID:Not on file Group ID:Not on file Type:Medicare Address: [place] [phone] [facility] Advance Directives Documents on File Type Date Recorded 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
--- OUTSIDE RECORDS SUMMARY | 2025-02-04 09:39 | XMS_ITS | Clinical Summary ---
Author Organization [facility] Address [address] [place] [address] Care Team Providers Care Youth Minister Name Role Phone Link Garcia MD Primary Care Provider [phone] Allergies No known active allergies Medications Medication [...] mouth 2 (two) times a day. Chocolate 55595 mL 3 04/05/2024 Active Active Problems Problem Noted Date Diagnosed Date Moderate protein-calorie malnutrition 02/29/2024 Family history of polyps in the colon 05/22/2023 Essential hypertension 06/15/2020 3 Overview: Last Assessment & Plan: [id number] in office today, elevated. She remains elevated [...] age to complete this topic Care Teams Youth Minister Relationship Specialty Start Date End Date Link Garcia MD PCP - General Family Medicine 02/07/23 [facility] Dermatology 02/07/23 [facility] Consulting Physician Ophthalmology 02/07/23 Dr. [facility] Cardiology 08/25/23
--- OUTSIDE RECORDS SUMMARY | 2025-02-04 09:39 | XMS_ITS | Encounter Summary ---
Author Organization [employer] [facility] Address [address] [place] [address] Care Team Providers Care Global Implementation Manager Name Role Phone Shad Veloz MD Primary Care Provider UnavailGil Murdock MD Unavailable [phone] Alejandra Stout NP Unavailable + [phone] Enrico Bennett MD Unavailable Unavailable Link Davis MD Primary Care Provider Unavailable Reason for Visit * Reason Onset Date Comments E-prescribe Rx Request 01/30/2021 incoming Erx S&S metoprolol succ Encounter Details Date Type Department Care Team Description 01/30/2021 Refill Cardio PVC POC [address] [facility] [address] [place] [address] Gil Hernandez MD [address] [facility] [address] [place] [address] E-prescribe Rx Request (incoming Erx S&S metoprolol succ ) Social History Tobacco Use Types Packs/Day [...] Telephone Encounter - Christiana Vaughn C.M.A. - 01/30/2021 1:24 PM EDT If available please schedule; Return in about 1 year (around 06/15/2021) Hx CAD, HTN MARIANGEL 06/15/20 w/ Dr RUIZ Metoprolol renewed No updated bmp only lipids. documented in this encounter Plan of Treatment Not on file documented as of this encounter Visit Diagnoses Not on filedocumented in this encounter Care Teams Global Implementation Manager Relationship Specialty Start Date End Date Shad Veloz MD PCP - General Internal Medicine 06/24/17 04/13/23 Link Davis MD [address] [place] [id number] PCP - General Family Practice 04/14/23 Gil Hernandez MD [address] [place] [address] Specialist Cardiovascular Disease 03/27/21 Alejandra Stout NP [address] [place] [address] Cardiology 06/20/21 Enrico Bennett MD [address] [place] [address] Specialist Pulmonology 06/22/21 documented as of this encounter
--- OUTSIDE RECORDS SUMMARY | 2025-02-04 09:39 | XMS_ITS | Clinical Summary ---
Author Organization [facility] Address [facility] [place] [address] Care Team Providers Care Brothel Keeper Name Role Phone Shad Veloz MD Primary Care Provider [phone] Allergies No known active allergies Medications aspirin [...] ST elevation myocardial infarction (STEMI) of in [facility] 12/01/2015 Social History Tobacco Use Types Packs/Day [...] 2020 Covid-19 Vaccine (1 - 2023- season) 2025 Influenza (Flu) vaccine (1 o f 1 - Influenza standard series) 01/10/[address] [facility] OOS Advance Directives * Full Code (Latest Code Status on File) Date Activated Date Inactivated Comments 12/01/2015 12:29 AM 12/03/2015 3:19 PM Question Answer Comments Does patient have capacity to make decision: Yes Content of discussion: Full code for [facility] Care Teams Brothel Keeper Relationship Specialty Start Date End Date Shad Veloz MD [address] [facility] [address] [place] [address] PCP - General General Internal Medicine 11/30/15
--- OUTSIDE RECORDS SUMMARY | 2025-02-04 09:39 | XMS_ITS | Encounter Summary ---
Author Organization [facility] Address [address] [place] [address] Care Team Providers Care Hand I Blocker Name Role Phone Shad Veloz MD Primary Care Provider UnavailGil Murdock MD Unavailable [phone] Alejandra Stout NP Unavailable + [phone] Enrico Bennett MD Unavailable Unavailable Link Davis MD Primary Care Provider Unavailable Reason for Visit * Reason Onset Date Comments E-prescribe Rx Request 01/20/2023 Incoming Fax S&S [place] lisinopril Encounter Details Date Type Department Care Team Description 01/20/2023 Refill Cardio PVC POC [address] [place] [address] Gil Hernandez MD [address] [facility] [address] [place] [address] E-prescribe Rx Request (/Incoming Fax S&S [place] lisinopril/) Social History Tobacco Use Types Packs/Day Years [...] encounter Miscellaneous Notes * Telephone Encounter - Crow Torres - 03/19/2023 11:42 AM EST Patient booked 04/14/23 with Alejandra Stout. * Telephone Encounter - Christiana Vaughn C.M.A. - 01/20/2023 3:35 PM EDT MARIANGEL 12/2021 w/ [facility] FOR ACCESS Return in about 1 year (around 12/19/2022) for Follow-up Dr. Hernandez. Lipid reminder mailed. documented in this encounter Plan of Treatment Scheduled Orders Name Type Priority Associated Diagnoses Orde r Schedule CHG LIPID PANEL Lab Routine Pure hypercholesterolemia Expected: 01/20/2023, Expires: 01/20/2024 documented as of this encounter Visit Diagnoses Diagnosis Pure hypercholesterolemia- Primary documented in this encounter Care Teams Hand I Blocker Relationship Specialty Start Date End Date Shad Veloz MD PCP - General Internal Medicine 06/24/17 04/13/23 Link Davis MD [address] [place] [address] PCP - General Family Practice 04/14/23 Gil Hernandez MD [address] [place] [address] Specialist Cardiovascular Disease 03/27/21 Alejandra Stout NP [address] [place] [address] Cardiology 06/20/21 Enrico Bennett MD [address] [place] [address] Specialist Pulmonology 06/22/21 documented as of this encounter
== END 2025-02-04 09:27 | disposition home or self-care (01) ==
LOC: HO.HPS 09:01
PROVIDERS: PCP Family Medicine; Visit Provider Hospitalist
DX: R91.8 Other nonspecific abnormal finding of lung field (principal); J43.2 Centrilobular emphysema; J96.11 Chronic respiratory failure with hypoxia; I50.22 Chronic systolic (congestive) heart failure; J92.0 Pleural plaque with presence of asbestos; J61 Pneumoconiosis due to asbestos and other mineral fibers
CPT/HCPCS: 99214; G2211

== ENCOUNTER → 2025-02-04 09:01 | Outpatient (BNVA) | payer MEDICARE, SELFPAY | PROVIDERS: PCP Family Medicine; Visit Provider Hospitalist | DX: J43.2 Centrilobular emphysema (principal); R91.8 Other nonspecific abnormal finding of lung field; J96.11 Chronic respiratory failure with hypoxia; I50.22 Chronic systolic (congestive) heart failure; Z87.891 Personal history of nicotine dependence; J92.0 Pleural plaque with presence of asbestos; I50.84 End stage heart failure; Z99.81 Dependence on supplemental oxygen | CPT/HCPCS: 99212 ==